=== PATIENT | female | born 1935 | race Caucasian/White ===

== ENCOUNTER 2017-06-22 15:07 | Emergency (ER) | payer MEDICARE, BC ==
--- NOTE | 2017-06-22 16:35 | EDM.PDOC ---
ED HPI GENERAL MEDICAL PROBLEM - General Chief Complaint: Respiratory Problem Stated Complaint: COUGH Time Seen by Provider: 06/22/17 16:25 Source of Information: Reports: Patient History Limitations: Reports: No Limitations - History of Present Illness INITIAL COMMENTS - FREE TEXT/NARRATIVE: Jennie presents today with complaints of cough with yellow mucus production, fever and chills off and on since June 08 with worsening the past 7 days. She denies chest pain, change in bowel or bladder habits. She does difficulty sleeping with cough as well as vomiting due to coughing hard. - Related Data Allergies Allergy/AdvReac Type Severity Reaction Status Date / Time Sulfa (Sulfonamide Allergy Mouth Sores Verified 06/22/17 16:06 Antibiotics) Home Meds: Home Meds Albuterol Sulfate [Proair Hfa] 2 puff IH Q6H PRN 08/21/14 [History] Albuterol/Ipratropium [DuoNeb 3.0-0.5 MG/3 ML] 1 ampule IH Q6H PRN 08/21/14 [ History] Aspirin [Halfprin] 81 mg PO DAILY 08/21/14 [History] Calcium Carbonate [Tums] 500 mg PO ASDIRECTED PRN 08/21/14 [History] Fluticasone/Salmeterol [Advair 250-50 Diskus] 2 puff IH BID PRN 08/21/14 [ History] Furosemide 1 tab PO DAILY 08/21/14 [History] Losartan [Cozaar] 100 mg PO DAILY 08/21/14 [History] Montelukast Sodium [Singulair] 10 mg PO DAILY 08/21/14 [History] Nebivolol [Bystolic] 10 mg PO DAILY 08/21/14 [History] Nitroglycerin 0.4 mg SL ASDIRECTED PRN 08/21/14 [History] atorvaSTATin [Lipitor] 40 mg PO DAILY 08/21/14 [History] Potassium Chloride [Klor-Con M10] 10 meq PO DAILY 01/11/15 [History] Escitalopram [Lexapro] 10 mg PO DAILY 10/26/15 [History] Loratadine [Claritin] 10 mg PO DAILY 10/26/15 [History] Hydrochlorothiazide 6.25 mg PO BEDTIME 06/22/17 [History] Past Medical History HEENT History: Reports: None Cardiovascular History: Reports: Hypertension, [place] Respiratory History: Reports: Asthma Other Respiratory History: emphasema Genitourinary History: Reports: None 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: Musculoskeletal History: Reports: Arthritis Psychiatric History: Reports: Anxiety, Depression - Infectious Disease History Infectious Disease History: Reports: Chicken Pox, Measles, Mumps, Pertussis ( Whooping Cough) - Past Surgical History Head Surgeries/Procedures: Reports: None HEENT Surgical History: Reports: Tonsillectomy Cardiovascular Surgical History: Reports: Carotid Stents Respiratory Surgical History: Reports: None Female Surgical History: Reports: Other (See Below) Other Female Surgeries/Procedures: kidney stents Musculoskeletal Surgical History: Reports: None Dermatological Surgical History: Reports: None Social & Family History - Family History Family Medical History: Noncontributory - Tobacco Use Smoking Status *Q: Never Smoker Second Hand Smoke Exposure: No - Caffeine Use Caffeine Use: Reports: Coffee - Alcohol Use Days Per Week of Alcohol Use: 1 Number of Drinks Per Day: 1 Total Drinks Per Week: 1 - Recreational Drug Use Recreational Drug Use: No ED ROS GENERAL - Review of Systems Review Of Systems: See Below Constitutional: Reports: Fever, Chills. Denies: Weakness, Diaphoresis, Weight Gain HEENT: Reports: Other (sinus congestion). Denies: Ear Discharge, Ear Pain, Throat Pain Respiratory: Reports: Cough, Sputum. Denies: Shortness of Breath, Wheezing, Pleuritic Chest Pain, Hemoptysis Cardiovascular: Reports: Edema, Other (She reports lower leg edema controlled without worsening at this time. ). Denies: Chest Pain, Dyspnea on Exertion, Lightheadedness, Palpitations, PND, Syncope Endocrine: Reports: No Symptoms GI/Abdominal: Reports: Vomiting, Other (Vomiting with heavy coughing. ). Denies : Abdominal Pain, Black Stool, Bloody Stool, Constipation, Diarrhea, Nausea : Reports: No Symptoms Musculoskeletal: Denies: Joint Pain, Joint Swelling, Muscle Pain, Muscle Stiffness Skin: Denies: Bruising, Pruritis, Rash, Erythema, Wound Neurological: Denies: Confusion, Headache, Numbness, Tingling, Weakness Psychiatric: Reports: No Symptoms Hematologic/Lymphatic: Reports: No Symptoms Immunologic: Reports: No Symptoms ED EXAM, GENERAL - Physical Exam Exam: See Below Free Text/Narrative:: Jennie is an alert, oriented and pleasant 81 year old female presenting to the ER with complaints of cough, intermittent fever and chills since June 08 with worsening the past 7 days. Exam Limited By: No Limitations General Appearance: Alert, WD/WN, No Apparent Distress Eye Exam: Bilateral Eye: EOMI, Normal Inspection, PERRL Ears: Normal External Exam, Normal Canal, Hearing Grossly Normal Ear Exam: Bilateral Ear: Auricle Normal, Canal Normal, Other (Bilateral TMs dull darden, no erythema noted. ) Nose: Normal Inspection, Normal Mucosa, No Blood, Nasal Swelling Throat/Mouth: Normal Inspection, Normal Lips, Normal Oropharynx, Normal Voice, No Airway Compromise Head: Atraumatic, Normocephalic Neck: Normal Inspection, Supple, Non-Tender, Full Range of Motion. No: Lymphadenopathy (R), Lymphadenopathy (L) Respiratory/Chest: No Respiratory Distress, No Accessory Muscle Use, Chest Non- Tender, Decreased Breath Sounds, Crackles, Rhonchi, Wheezing, Prolonged Expiration, Other (Noted rhonchi, faint crackles to bilateral bases, expiratory wheezing to bilateral upper lobes. ) Cardiovascular: Normal Peripheral Pulses, Regular Rate, Rhythm, No Murmur, Other (1+ edema bilateral lower legs. ) Peripheral Pulses: 2+: Radial (L), Radial (R) GI/Abdominal: Normal Bowel Sounds, Soft, Non-Tender, No Distention, No Mass Back Exam: Normal Inspection, Full Range of Motion. No: CVA Tenderness (R), CVA Tenderness (L) Extremities: Normal Inspection, Normal Range of Motion, Non-Tender, Normal Capillary Refill, Other (1+ edema of bilateral lower extremities. ) Neurological: Alert, Oriented, CN II-XII Intact, Normal Cognition, Normal Gait, Normal Reflexes, No Motor/Sensory Deficits Psychiatric: Normal Affect, Normal Mood Skin Exam: Warm, Dry, Intact, Normal Color, No Rash. No: Diaphoretic Lymphatic: No Adenopathy Course - Vital Signs Last Recorded V/S: Last Vital Signs Temp 37.0 C 06/22/17 17:47 Pulse 87 06/22/17 17:47 Resp 16 06/22/17 17:47 BP 172/72 H 06/22/17 17:47 Pulse Ox 93 L 06/22/17 17:47 - Orders/Labs/Meds Orders: Active Orders 24 hr Category Date Time Status Chest 2V [CR] Stat Exams 06/22/17 16:35 Taken Labs: Laboratory Tests 06/22/17 06/22/17 Range/Units 16:35 16:35 WBC 12.0 H (4.5-11.0) K/uL RBC 3.78 (3.30-5.50) M/uL Hgb 11.9 L (12.0-15.0) g/dL Hct 36.6 (36.0-48.0) % MCV 97 (80-98) fL MCH 32 H (27-31) pg MCHC 33 (32-36) % Plt Count 326 (150-400) K/uL Neut % (Auto) 67 H (36-66) % Lymph % (Auto) 20 L (24-44) % [place] % (Auto) 10 H (2-6) % Eos % (Auto) 3 (2-4) % Baso % (Auto) 1 (0-1) % Sodium 137 L (140-148) mmol/L Potassium 3.6 (3.6-5.2) mmol/L Chloride 99 L (100-108) mmol/L Carbon Dioxide 32 (21-32) mmol/L Anion Gap 9.6 (5.0-14.0) mmol/L BUN 9 (7-18) mg/dL Creatinine 0.7 (0.6-1.0) mg/dL Est Cr Clr Drug Dosing 43.74 mL/min Estimated GFR (MDRD) > 60 (>60) Glucose 113 H (74-106) mg/dL Calcium 8.8 (8.5-10.1) mg/dL Total Bilirubin 0.3 (0.2-1.0) mg/dL AST 12 L (15-37) U/L ALT 17 (12-78) U/L Alkaline Phosphatase 78 (46-116) U/L NT-Pro-B Natriuret Pep 285 (5-450) pg/mL Total Protein 7.2 (6.4-8.2) g/dL Albumin 3.2 L (3.4-5.0) g/dL Globulin 4.0 H (2.3-3.5) g/dL Albumin/Globulin Ratio 0.8 L (1.2-2.2) Lab work reviewed. Meds: Medications Discontinued Medications Generic Name Dose Route Start Last Admin Trade Name Freq PRN Reason Stop Dose Admin Levofloxacin 750 mg 06/22/17 18:04 Levaquin PO 06/22/17 18:05 ONETIME ONE Levofloxacin 750 mg 06/22/17 18:13 06/22/17 18:20 Levaquin PO 06/22/17 18:14 750 mg ONETIME ONE Administration - Radiology Interpretation Free Text/Narrative:: Chest x-ray wet read, possible bilateral lower infiltrates. Radiologist read pending. Departure - Departure Time of Disposition: 18:07 Disposition: Home, Self-Care 01 Condition: Fair Clinical Impression: Atypical pneumonia - Discharge Information Instructions: Community-Acquired Pneumonia, Adult, [id number] Referrals: Rashad Vidal PA-C [Primary Care Provider] - Forms: ED Department Discharge Additional Instructions: You were treated for atypical pneumonia. You were given levaquin 650mg by mouth in the emergency room with a written script. Take levaquin 750mg by mouth once daily for 6 more days. Follow up with your provider this Friday for a recheck of status. Take cough medicine as needed for cough. Return to the emergency room for worsening of cough, SOB, fever, chills or change in mental status. - My Orders Last 24 Hours: My Active Orders 06/22/17 16:35 Chest 2V [CR] Stat - Assessment/Plan Last 24 Hours: My Active Orders 06/22/17 16:35 Chest 2V [CR] Stat Assessment:: Atypical pneumonia Plan: Patient was treated for atypical pneumonia. She was given levaquin 650mg by mouth in the emergency room with a written script. Take levaquin 750mg by mouth once daily for 6 more days. Follow up with her provider this Friday for a recheck of status. Take cough medicine as needed for cough. Return to the emergency room for worsening of cough, SOB, fever, chills or change in mental status.
[2017-06-22 17:48] VITALS: BP 172/72
[2017-06-22] MEDS ORDERED: Levofloxacin 250 MG Tab PO ONE (18:04)
[2017-06-22] MEDS ORDERED: Levofloxacin 500 MG Tab PO ONE (18:13)
--- NOTE | 2017-06-23 08:49 | CR ---
2 view chest Comparison: October 2015. Intact sternal wires are present. The heart and vascular structures are stable. There are no infiltra tanner or effusions. Impression: 1. No acute findings.
== END 2017-06-22 18:23 | disposition home or self-care (01) ==
LOC: JP.ED 15:07
DX: J18.9 Pneumonia, unspecified organism (principal); I10 Essential (primary) hypertension; J45.909 Unspecified asthma, uncomplicated; Z79.899 Other long term (current) drug therapy; Z79.82 Long term (current) use of aspirin; Z88.2 Allergy status to sulfonamides
CPT/HCPCS: 36415; 71020; 80053; 83880; 85025; 99283; 99284; A9270

== ENCOUNTER 2019-06-20 01:23 | Emergency (ER) | payer MEDICARE, BC ==
[2019-06-20] MEDS ORDERED: Aspirin 81 MG Tab.Chew PO ONE (01:30)
[2019-06-20] MEDS ORDERED: Albuterol/Ipratropium 3.0-0.5 MG/3 ML Neb Soln NEB ONE (01:31)
--- NOTE | 2019-06-20 01:34 | EDM.PDOC ---
ED HPI GENERAL MEDICAL PROBLEM - General Chief Complaint: Chest Pain Stated Complaint: TROUBLE BREATHING Time Seen by Provider: 06/20/19 01:27 Source of Information: Reports: Patient, Family, RN Notes Reviewed History Limitations: Reports: No Limitations - History of Present Illness INITIAL COMMENTS - FREE TEXT/NARRATIVE: 83-year-old female presents emergency department today complaint of chest tightness, she states it started about 10:00 this evening chest feels tight feels short of breath did try a breathing treatment which provided some relief. No nausea and no diaphoresis does have a history of coronary artery disease Chest Pain Score (Numeric/FACES): 8 - Related Data Allergies Allergy/AdvReac Type Severity Reaction Status Date / Time Sulfa (Sulfonamide Allergy Mouth Sores Verified 06/20/19 01:27 Antibiotics) Home Meds: Home Meds Albuterol Sulfate [Proair Hfa] 2 puff IH Q6H PRN 08/21/14 [History] Albuterol/Ipratropium [DuoNeb 3.0-0.5 MG/3 ML] 1 ampule IH Q6H PRN 08/21/14 [ History] Aspirin [Halfprin] 81 mg PO DAILY 08/21/14 [History] Calcium Carbonate [Tums] 500 mg PO ASDIRECTED PRN 08/21/14 [History] Fluticasone/Salmeterol [Advair 250-50 Diskus] 1 puff IH BID 08/21/14 [History] Furosemide 60 mg PO DAILY 08/21/14 [History] Losartan [Cozaar] 100 mg PO DAILY 08/21/14 [History] Montelukast Sodium [Singulair] 10 mg PO DAILY 08/21/14 [History] Nitroglycerin 0.4 mg SL ASDIRECTED PRN 08/21/14 [History] atorvaSTATin [Lipitor] 40 mg PO DAILY 08/21/14 [History] Potassium Chloride [Klor-Con M10] 10 meq PO DAILY 01/11/15 [History] Loratadine [Claritin] 10 mg PO DAILY 10/26/15 [History] hydroCHLOROthiazide [Hydrochlorothiazide] 12.5 mg PO BEDTIME 06/22/17 [History] Carvedilol 6.25 mg PO BID 01/16/18 [History] Fluticasone Propionate [Flonase Allergy Relief] 2 sprays NS DAILY 01/16/18 [ History] amLODIPine Besylate [Amlodipine Besylate] 5 mg PO DAILY 01/16/18 [History] Past Medical History Cardiovascular History: Reports: Bypass, CAD, High Cholesterol, Hypertension, [place] , SOB on Exertion Respiratory History: Reports: Asthma, COPD, SOB Other Respiratory History: emphasema 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: Musculoskeletal History: Reports: Arthritis Psychiatric History: Reports: Anxiety, Depression - Infectious Disease History Infectious Disease History: Reports: Chicken Pox, Measles, Mumps, Pertussis ( Whooping Cough) - Past Surgical History Head Surgeries/Procedures: Reports: None HEENT Surgical History: Reports: Tonsillectomy Cardiovascular Surgical History: Reports: Carotid Stents, Coronary Artery Bypass , Coronary Artery Stent Respiratory Surgical History: Reports: None GI Surgical History: Reports: None Female Surgical History: Reports: Other (See Below) Other Female Surgeries/Procedures: kidney stents Musculoskeletal Surgical History: Reports: None Dermatological Surgical History: Reports: None Social & Family History - Family History Family Medical History: Noncontributory - Tobacco Use Smoking Status *Q: Never Smoker - Caffeine Use Caffeine Use: Reports: Coffee ED ROS GENERAL - Review of Systems Review Of Systems: See Below Constitutional: Reports: No Symptoms HEENT: Reports: No Symptoms Respiratory: Reports: Shortness of Breath, Wheezing. Denies: Cough, Sputum Cardiovascular: Reports: Chest Pain, Dyspnea on Exertion GI/Abdominal: Reports: No Symptoms : Reports: No Symptoms ED EXAM, GENERAL - Physical Exam Exam: See Below Exam Limited By: No Limitations General Appearance: Alert (Sore), WD/WN, No Apparent Distress Neck: Normal Inspection, Supple, Non-Tender, Full Range of Motion Respiratory/Chest: No Respiratory Distress, Lungs Clear, No Accessory Muscle Use , Chest Non-Tender, Decreased Breath Sounds Cardiovascular: Regular Rate, Rhythm, No Murmur GI/Abdominal: Soft, Non-Tender Course - Vital Signs Last Recorded V/S: Last Vital Signs Temp 98.9 F 06/20/19 01:33 Pulse 89 06/20/19 01:40 Resp 17 06/20/19 01:40 BP 185/76 H 06/20/19 01:40 Pulse Ox 96 06/20/19 01:40 - Orders/Labs/Meds Orders: Active Orders 24 hr Category Date Time Status Cardiac Monitoring [RC] .As Directed Care 06/20/19 01:31 Active EKG Documentation Completion [RC] ASDIRECTED Care 06/20/19 01:31 Active RT Aerosol Therapy [RC] ASDIRECTED Care 06/20/19 01:31 Active EKG 12 Lead [EK] Stat Ther 06/20/19 01:31 Ordered Labs: Laboratory Tests 06/20/19 06/20/19 Range/Units 01:40 01:40 WBC 13.6 H (4.5-11.0) K/uL RBC 3.99 (3.30-5.50) M/uL Hgb 13.0 (12.0-15.0) g/dL Hct 39.7 (36.0-48.0) % MCV 100 H (80-98) fL MCH 33 H (27-31) pg MCHC 33 (32-36) % Plt Count 253 (150-400) K/uL Neut % (Auto) 71 H (36-66) % Lymph % (Auto) 17 L (24-44) % [place] % (Auto) 6 (2-6) % Eos % (Auto) 6 H (2-4) % Baso % (Auto) 1 (0-1) % Sodium 139 L (140-148) mmol/L Potassium 3.5 L (3.6-5.2) mmol/L Chloride 100 (100-108) mmol/L Carbon Dioxide 28 (21-32) mmol/L Anion Gap 14.5 H (5.0-14.0) mmol/L BUN 19 H D (7-18) mg/dL Creatinine 0.9 (0.6-1.0) mg/dL Est Cr Clr Drug Dosing 32.83 mL/min Estimated GFR (MDRD) 60 (>60) Glucose 129 H (74-106) mg/dL Calcium 9.1 (8.5-10.1) mg/dL Total Bilirubin 0.3 (0.2-1.0) mg/dL AST 14 L (15-37) U/L ALT 17 (12-78) U/L Alkaline Phosphatase 84 (46-116) U/L Troponin I < 0.017 (0.000-0.056) ng/mL NT-Pro-B Natriuret Pep 244 (5-450) pg/mL Total Protein 7.6 (6.4-8.2) g/dL Albumin 4.2 (3.4-5.0) g/dL Globulin 3.4 (2.3-3.5) g/dL Albumin/Globulin Ratio 1.2 (1.2-2.2) Meds: Medications Discontinued Medications Generic Name Dose Route Start Last Admin Trade Name Chris PRN Reason Stop Dose Admin Albuterol/Ipratropium 3 ml 06/20/19 01:31 06/20/19 01:37 Duoneb 3.0-0.5 Mg/3 Ml NEB 06/20/19 01:32 3 ml ONETIME ONE Administration Aspirin 324 mg 06/20/19 01:30 06/20/19 01:37 Aspirin PO 06/20/19 01:31 324 mg ONETIME ONE Administration Departure - Departure Time of Disposition: 02:22 Disposition: Home, Self-Care 01 Condition: Fair Clinical Impression: COPD exacerbation Instructions: Chronic Obstructive Pulmonary Disease Exacerbation Referrals: PCP,None [Primary Care Provider] - Forms: ED Department Discharge Additional Instructions: Take full course of antibiotics, take full course of prednisone, Please followup with your primary care provider in 3-5 days if not better, please call return to the emergency department with worsening of symptoms. - My Orders Last 24 Hours: My Active Orders 06/20/19 01:31 Cardiac Monitoring [RC] .As Directed EKG Documentation Completion [RC] ASDIRECTED RT Aerosol Therapy [RC] ASDIRECTED EKG 12 Lead [EK] Stat - Assessment/Plan Last 24 Hours: My Active Orders 06/20/19 01:31 Cardiac Monitoring [RC] .As Directed EKG Documentation Completion [RC] ASDIRECTED RT Aerosol Therapy [RC] ASDIRECTED EKG 12 Lead [EK] Stat Plan: Assessment Acuity = acute Site and laterality = COPD exacerbation Etiology = unknown Manifestations = wheezing, dyspnea Location of injury = Home Lab values = WBC elevated 13.6 consistent leukocytosis, CMP unremarkable troponin was negative BNP was negative chest x-ray shows no acute process EKG demonstrates normal sinus rhythm Plan She had good relief with the DuoNeb provided in the ED was able to breathe more relaxed, plan is to do prednisone 20 mg once day 5 days combination with a azithromycin per package directions for 5 days follow-up primary care 3-5 days if not better This note was dictated using [employer] voice recognition software please call with any questions on syntax or grammar.
--- NOTE | 2019-06-20 01:58 | CRLCR ---
INDICATION: Chest pain TECHNIQUE: Chest radiograph 2 views COMPARISON: 06/22/2017 FINDINGS: Mediastinum: The mediastinum is normal in appearance. The heart silhouette is normal in size and morphology. The patient is status post coronary artery bypass surgery. Lung: Both lungs are unremarkable in appearance. No sign of pleural effusion seen. No pneumothorax is identified. Bone and Soft tissue: Unremarkable for age. IMPRESSION: 1. No acute cardiopulmonary disease is seen. Dictated by: Jam Jimenez MD @ 06/20/2019 01:58:19 (Electronically Signed)
[2019-06-20 02:34] VITALS: BP 176/68; PULSE 77
== END 2019-06-20 02:54 | disposition home or self-care (01) ==
LOC: JP.ED 01:23
DX: J44.1 Chronic obstructive pulmonary disease with (acute) exacerbation (principal); I10 Essential (primary) hypertension; I25.2 Old myocardial infarction; E78.00 Pure hypercholesterolemia, unspecified; F41.9 Anxiety disorder, unspecified; F32.9 Major depressive disorder, single episode, unspecified; Z88.2 Allergy status to sulfonamides; Z79.82 Long term (current) use of aspirin; Z79.899 Other long term (current) drug therapy
CPT/HCPCS: 36415; 71046; 80053; 83880; 84484; 85025; 93005; 94640; 99285; A9270; 93010; 99284; J7620-GY

== ENCOUNTER 2020-04-10 23:40 | Observation (INO) | payer MEDICARE, BC ==
[2020-04-10] MEDS ORDERED: Sodium Chloride 0.9% 10 ML Syringe FLUSH PRN (23:46)
[2020-04-10] MEDS ORDERED: methylPREDNISolone Sod Succ 125 MG in Dextrose 5% in Water 100 ML IV ONE ×2 (23:52)
[2020-04-10] MEDS ORDERED: Albuterol/Ipratropium 3.0-0.5 MG/3 ML Neb Soln NEB ONE (23:52)
[2020-04-10] MEDS ORDERED: methylPREDNISolone Sodium Succinate 125 MG/2 ML SDV ONE (23:56)
[2020-04-10] MEDS ORDERED: methylPREDNISolone Sodium Succinate 125 MG/2 ML SDV IVPUSH ONE (23:58)
[2020-04-11] MEDS ORDERED: Albuterol/Ipratropium 3.0-0.5 MG/3 ML Neb Soln NEB ONE (01:16)
[2020-04-11] MEDS ORDERED: Ondansetron 4 MG Tab.DIS PO ONE (01:43)
--- NOTE | 2020-04-11 01:51 | EDM.PDOC ---
ED HPI GENERAL MEDICAL PROBLEM - General Chief Complaint: Respiratory Problem Stated Complaint: SOB Time Seen by Provider: 04/10/20 23:50 Source of Information: Reports: Patient, Family - History of Present Illness Onset Date: 04/08/20 Duration: Getting Worse Improves with: Reports: None Worsens with: Reports: None Associated Symptoms: Reports: Cough, Malaise, Shortness of Breath, Weakness Treatments [employer]: Reports: Home Treatments (nebulizer treatments with duonebs) - Related Data Allergies Allergy/AdvReac Type Severity Reaction Status Date / Time Sulfa (Sulfonamide Allergy Mouth Sores Verified 04/11/20 00:00 Antibiotics) Home Meds: Home Meds Albuterol Sulfate [Proair Hfa] 2 puff IH Q6H PRN 08/21/14 [History] Albuterol/Ipratropium [DuoNeb 3.0-0.5 MG/3 ML] 1 ampule IH Q6H PRN 08/21/14 [History] Aspirin [Halfprin] 81 mg PO DAILY 08/21/14 [History] Calcium Carbonate [Tums] 500 mg PO ASDIRECTED PRN 08/21/14 [History] Fluticasone Propion/Salmeterol [Advair 250-50 Diskus] 1 puff IH BID 08/21/14 [History] Furosemide 60 mg PO DAILY 08/21/14 [History] Losartan [Cozaar] 100 mg PO DAILY 08/21/14 [History] Montelukast Sodium [Singulair] 10 mg PO DAILY 08/21/14 [History] Nitroglycerin 0.4 mg SL ASDIRECTED PRN 08/21/14 [History] atorvaSTATin [Lipitor] 40 mg PO DAILY 08/21/14 [History] Potassium Chloride [Klor-Con M10] 10 meq PO DAILY 01/11/15 [History] hydroCHLOROthiazide [Hydrochlorothiazide] 12.5 mg PO BEDTIME 06/22/17 [History] Fluticasone Propionate [Flonase Allergy Relief] 2 sprays NS DAILY 01/16/18 [History] amLODIPine Besylate [Amlodipine Besylate] 5 mg PO DAILY 01/16/18 [History] carvediloL [Carvedilol] 6.25 mg PO BID 01/16/18 [History] Past Medical History HEENT History: Reports: Hard of Hearing Cardiovascular History: Reports: Bypass, CAD, High Cholesterol, Hypertension, [place], SOB on Exertion Respiratory History: Reports: Asthma, COPD, SOB Other Respiratory History: emphasema Genitourinary History: Reports: None, Chronic Renal Insuffiency, Urinary Incontinence Other Genitourinary History: renal artery stenosis [employer] History: Reports: Musculoskeletal History: Reports: Arthritis, Fracture Other Musculoskeletal History: osteopenia Psychiatric History: Reports: Anxiety, Depression - Infectious Disease History Infectious Disease History: Reports: Chicken Pox, Measles, Pertussis (Whooping Cough) - Past Surgical History Head Surgeries/Procedures: Reports: None HEENT Surgical History: Reports: Tonsillectomy Cardiovascular Surgical History: Reports: Carotid Stents, Coronary Artery Bypass, Coronary Artery Stent Respiratory Surgical History: Reports: None GI Surgical History: Reports: None Female Surgical History: Reports: Other (See Below) Other Female Surgeries/Procedures: kidney stents Musculoskeletal Surgical History: Reports: None Dermatological Surgical History: Reports: None Social & Family History - Family History Family Medical History: Noncontributory - Tobacco Use Smoking Status *Q: Never Smoker - Caffeine Use Caffeine Use: Reports: Coffee ED ROS GENERAL - Review of Systems Review Of Systems: Comprehensive ROS is negative, except as noted in HPI. Constitutional: Reports: Malaise, Weakness, Fatigue HEENT: Reports: No Symptoms Respiratory: Reports: Shortness of Breath, Wheezing, Cough, Sputum Cardiovascular: Reports: Edema Endocrine: Reports: Fatigue GI/Abdominal: Reports: No Symptoms : Reports: No Symptoms Musculoskeletal: Reports: No Symptoms Skin: Reports: No Symptoms Neurological: Reports: No Symptoms Psychiatric: Reports: No Symptoms Hematologic/Lymphatic: Reports: No Symptoms Immunologic: Reports: No Symptoms ED EXAM, GENERAL - Physical Exam Exam: See Below Exam Limited By: No Limitations General Appearance: Anxious, Severe Distress Throat/Mouth: Normal Inspection, Normal Lips, Normal Oropharynx Head: Atraumatic, Normocephalic Neck: Normal Inspection, Supple, Non-Tender, Full Range of Motion Respiratory/Chest: Decreased Breath Sounds, Wheezing (expiratory >> inspiratory), Accessory Muscle Use Cardiovascular: Normal Peripheral Pulses, Regular Rate, Rhythm Peripheral Pulses: 2+: Brachial (L), Brachial (R) GI/Abdominal: Normal Bowel Sounds, Soft, Non-Tender Back Exam: Normal Inspection Extremities: Pedal Edema (3+ bilateral pedal edema) Neurological: Alert, Oriented, Normal Cognition, No Motor/Sensory Deficits Psychiatric: Normal Affect, Anxious Skin Exam: Warm, Dry, Intact Lymphatic: No Adenopathy Course - Vital Signs Last Recorded V/S: Last Vital Signs Temp 36.7 C 04/11/20 00:06 Pulse 74 04/11/20 00:56 Resp 25 H 04/11/20 01:50 BP 168/72 H 04/11/20 00:56 Pulse Ox 90 L 04/11/20 01:50 - Orders/Labs/Meds Orders: Active Orders 24 hr Category Date Time Status RT Aerosol Therapy [RC] ASDIRECTED Care 04/10/20 23:53 Active RT Aerosol Therapy [RC] ASDIRECTED Care 04/11/20 01:16 Active Chest 2V [CR] Stat Exams 04/10/20 23:46 Taken Sodium Chloride 0.9% [Saline Flush] Med 04/10/20 23:46 Active 10 ml FLUSH ASDIRECTED PRN Saline Lock Insert [OM.PC] Routine Oth 04/10/20 23:46 Ordered Medication Orders Sodium Chloride (Saline Flush) 10 ml FLUSH ASDIRECTED PRN PRN Reason: Keep Vein Open Last Admin: 04/11/20 00:01 Dose: 10 ml Documented by: ANIL Labs: Laboratory Tests 04/10/20 04/10/20 04/11/20 Range/Units 23:55 23:55 00:01 WBC 11.2 H (4.5-11.0) K/uL RBC 4.31 (3.30-5.50) M/uL Hgb 13.7 (12.0-15.0) g/dL Hct 42.8 (36.0-48.0) % MCV 99 H (80-98) fL MCH 32 H (27-31) pg MCHC 32 (32-36) % Plt Count 289 (150-400) K/uL Neut % (Auto) 44 (36-66) % Lymph % (Auto) 34 (24-44) % Gonzales % (Auto) 9 H (2-6) % Eos % (Auto) 11 H (2-4) % Baso % (Auto) 1 (0-1) % Sodium 134 L (140-148) mmol/L Potassium 3.5 L (3.6-5.2) mmol/L Chloride 95 L (100-108) mmol/L Carbon Dioxide 31 (21-32) mmol/L Anion Gap 11.5 (5.0-14.0) mmol/L BUN 10 (7-18) mg/dL Creatinine 1.0 (0.6-1.0) mg/dL Est Cr Clr Drug Dosing 29.01 mL/min Estimated GFR (MDRD) 53 L (>60) Glucose 150 H (74-106) mg/dL Lactic Acid 1.5 (0.4-2.0) mmol/L Calcium 8.8 (8.5-10.1) mg/dL Total Bilirubin 0.4 (0.2-1.0) mg/dL AST 16 (15-37) U/L ALT 15 (12-78) U/L Alkaline Phosphatase 71 (46-116) U/L Troponin I < 0.017 (0.000-0.056) ng/mL C-Reactive Protein < 0.05 (0.0-0.3) mg/dL Total Protein 7.9 (6.4-8.2) g/dL Albumin 4.2 (3.4-5.0) g/dL Globulin 3.7 H (2.3-3.5) g/dL Albumin/Globulin Ratio 1.1 L (1.2-2.2) Meds: Medications Generic Name Dose Route Start Last Admin Trade Name Freq PRN Reason Stop Dose Admin Sodium Chloride 10 ml 04/10/20 23:46 04/11/20 00:01 Saline Flush FLUSH 10 ml ASDIRECTED PRN Administration Keep Vein Open Discontinued Medications Generic Name Dose Route Start Last Admin Trade Name Freq PRN Reason Stop Dose Admin Albuterol/Ipratropium 3 ml 04/10/20 23:52 04/11/20 00:00 Duoneb 3.0-0.5 Mg/3 Ml NEB 04/10/20 23:53 3 ml ONETIME ONE Administration Albuterol/Ipratropium 3 ml 04/11/20 01:16 04/11/20 01:20 Duoneb 3.0-0.5 Mg/3 Ml NEB 04/11/20 01:17 3 ml ONETIME ONE Administration Methylprednisolone Sodium 100 mls @ 100 mls/hr 04/10/20 23:52 04/11/20 00:04 Succinate 125 mg/ Dextrose/ IV 04/11/20 00:51 Not Given Water ONETIME ONE Methylprednisolone Sodium Succinate 125 mg 04/10/20 23:58 04/11/20 00:03 Solu-Medrol IVPUSH 04/10/20 23:59 125 mg ONETIME ONE Administration Methylprednisolone Sodium Succinate Confirm 04/10/20 23:56 04/11/20 00:03 Solu-Medrol Administered 04/10/20 23:57 Not Given Dose 125 mg .ROUTE .STK-MED ONE Ondansetron HCl 4 mg 04/11/20 01:43 04/11/20 01:50 Zofran Odt PO 04/11/20 01:44 4 mg ONETIME ONE Administration - Re-Assessments/Exams Free Text/Narrative Re-Assessment/Exam: 04/11/20 01:55 Jennie received several duoneb treatments and solumedrol 125mg IVP with marked improvement in her symptoms. However, when she was getting dressed to be discharged, she again became acutely short of breath raising concerns that she might not be able to go home tonight. 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 We reassessed the patient by walking with her while monitoring her oxymetry. Unfortunately her oxymetry dropped below 90% with minimal ambulation and the patient became quite fatigued. 04/11/20 02:46 With this I believe we should admit her for COPD exacerbation. I will discuss the case with Dr. Elizabeth to arrange the admission. Departure - Departure Time of Disposition: 02:55 Disposition: Admitted As Inpatient 64 Condition: Fair Clinical Impression: COPD with acute exacerbation, Acute exacerbation of chronic bronchitis - Discharge Information *PRESCRIPTION DRUG MONITORING PROGRAM REVIEWED*: Not Applicable Instructions: Chronic Obstructive Pulmonary Disease, [id number], Acute Bronchitis, Adult Referrals: PCP,None [Primary Care Provider] - Forms: ED Department Discharge Additional Instructions: I believe you have acute on chronic bronchitis given the elevation of her leukocyte count and a productive cough. We will start Azithromycin to treat this. Continue using your duoneb as needed. Return to the ED if you have any worsening of your breathing. Sepsis Event Note (ED) - Evaluation Sepsis Screening Result: No Definite Risk - Focused Exam Vital Signs: Vital Signs Temp Pulse Resp BP Pulse Ox 04/11/20 01:50 25 H 90 L 04/11/20 00:56 74 168/72 H 92 L 04/11/20 00:14 84 25 H 184/78 H 97 04/11/20 00:06 36.7 C 90 28 H 212/78 H 80 L 04/10/20 23:50 36.7 C 90 28 H 212/78 H 80 L - Problem List Review Problem List Initiated/Reviewed/Updated: Yes - My Orders Last 24 Hours: My Active Orders 04/10/20 23:46 Chest 2V [CR] Stat Sodium Chloride 0.9% [Saline Flush] 10 ml FLUSH ASDIRECTED PRN Saline Lock Insert [OM.PC] Routine 04/10/20 23:53 RT Aerosol Therapy [RC] ASDIRECTED 04/11/20 01:16 RT Aerosol Therapy [RC] ASDIRECTED - Assessment/Plan Last 24 Hours: My Active Orders 04/10/20 23:46 Chest 2V [CR] Stat Sodium Chloride 0.9% [Saline Flush] 10 ml FLUSH ASDIRECTED PRN Saline Lock Insert [OM.PC] Routine 04/10/20 23:53 RT Aerosol Therapy [RC] ASDIRECTED 04/11/20 01:16 RT Aerosol Therapy [RC] ASDIRECTED
[2020-04-11] MEDS ORDERED: Ondansetron 4 MG Tab.DIS PO PRN (03:44)
[2020-04-11] MEDS ORDERED: Sodium Chloride 0.9% 10 ML Syringe FLUSH PRN (03:44)
[2020-04-11] MEDS ORDERED: Albuterol/Ipratropium 3.0-0.5 MG/3 ML Neb Soln NEB PRN (03:44)
[2020-04-11] MEDS ORDERED: methylPREDNISolone Sodium Succinate 125 MG/2 ML SDV IVPUSH SCH ×2 (04:00→08:00)
[2020-04-11] MEDS ORDERED: Nitroglycerin 0.4 MG Tab.SL SL PRN (04:01)
[2020-04-11] MEDS ORDERED: Calcium Carbonate 500 MG Tab.Chew PO PRN (04:01)
[2020-04-11] MEDS ORDERED: Potassium Chloride 20 MEQ Tab.ER PO ONE (04:03)
--- NOTE | 2020-04-11 05:21 | HP ---
CHIEF COMPLAINT: Shortness of breath. HISTORY OF PRESENT ILLNESS: For the last couple days, she has had increasing shortness of breath with an occasional nonproductive cough. No fever. No known exposure to COVID. She lives in assisted living. They tried to get her into the clinic, but were not able to get in for a couple days and family brought her into the emergency room for further evaluation with available emergency room physician. Initially, her O2 sats were down to the 80% range, was given a DuoNeb and oxygen and Solu-Medrol, and her oxygenation did improve. They were able to take her off oxygen and her sats did improve, but when they did get her up, she did drop down to the 80% range again. I was asked to meet the patient for further evaluation and treatment. The patient states she has had wheezing, tightness in her chest, but no chest pain. She does have chronic swelling in her legs, but right now it is actually doing better than it usually is. She does wear elastic stockings on a regular basis, but currently has not had them on. PAST MEDICAL HISTORY: 1. COPD. She has never been a smoker. 2. Coronary artery disease, two-vessel bypass surgery in the past. It looked like she probably had a heart attack prior to this. 3. Hypertension. 4. Arthritis. 5. Anxiety and depression. 6. Tonsillectomy. 7. AAA repair. 8. Carotid stents placed in the past. 9. Kidney stents placed in the past. CURRENT MEDICATIONS: 1. Albuterol inhaler p.r.n. 2. DuoNeb p.r.n. 3. Amlodipine 5 mg daily. 4. Aspirin 81 mg daily. 5. Atorvastatin 40 mg daily. 6. Calcium 500 mg p.r.n. 7. Carvedilol 6.25 mg b.i.d. 8. Advair inhaler 250/50 b.i.d. 9. Flonase nasal spray two sprays in each nostril daily. 10.Furosemide 60 mg daily. 11.Hydrochlorothiazide 12.5 mg at bedtime. 12.Losartan 100 mg daily. 13.Singulair 10 mg daily. 14.Nitroglycerin, which she has not taken. 15.Potassium chloride 10 mEq daily. ALLERGIES: SULFA. SOCIAL HISTORY: Has never smoked. 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 FAMILY HISTORY: Unremarkable. REVIEW OF SYSTEMS: Denies headaches, vision changes, upper respiratory symptoms. She does have a cough with shortness of breath and wheezing. No chest pain. No abdominal pain. She did have a little bit of nausea when she came in, improved with Zofran. Denies any diarrhea or constipation. No urinary problems. She does have chronic swelling in her legs and she does have joints that bother her at times from her arthritis. Denies any neurologic complaints. OBJECTIVE: VITAL SIGNS: Temp 36.7. Initially blood pressure was 212/78, now is 168/72, respirations 28, now 25, O2 saturation 80% initially on 2 L, now is on 90-92% on no oxygen. GENERAL APPEARANCE: The patient is alert and oriented x3. The patient is otherwise in no apparent distress, but does get quite dyspneic when they get her up to walk. HEENT: Ears are clear. Pharynx is clear. Dentures worn. NECK: Supple. No adenopathy, thyromegaly, JVD, carotid bruits. LUNGS: Have slight wheezes now. It sounds like it was much more pronounced when she arrived. HEART: Regular without murmurs. ABDOMEN: Soft, nontender. No mass, organomegaly palpated. EXTREMITIES: She does have pitting edema to the midtibia bilaterally, but right now she states her swelling is actually pretty good. SKIN: Negative. NEURO: Cranial nerves II through XII grossly intact. Alert and oriented. LABORATORY DATA: White count 11.2, hemoglobin 13.7, platelets 289,000 with 44% neutrophils, 34% lymphocytes, 9% monocytes. Sodium 134, potassium 3.5, chloride 95, BUN was 10, creatinine 1.0, glucose 150. Liver functions were normal. C-reactive protein less than 0.05. Troponins less than 0.017. Chest x-ray, hyperinflated, but no acute infiltrate, but await Radiology interpretation. ASSESSMENT: 1. Exacerbation of chronic obstructive pulmonary disease with possible bronchitis. The patient already received 125 mg of Solu-Medrol in the emergency room, which we will continue every 8 hours, DuoNeb q.i.d., and oxygen as needed, right now she does not require. We will also start her on Zithromax for possible bronchitis as a component of the exacerbation. We will admit her under observation, anticipate less than two midnight stays. Transfer care to the hospitalist service in the morning. 2. Coronary artery disease, previous two-vessel bypass surgery in the past. 3. Essential hypertension, which is elevated, and we will continue to monitor and adjust medication if needed. Hiram Elizabeth MD /[id number]
[2020-04-11] MEDS ORDERED: Fluticasone-Salmeterol 113-14 MCG Powder Inhalant INH SCH ×2 (07:30→09:00)
[2020-04-11] MEDS: Acetaminophen 325 MG Tab PO PRN ×2 (08:08→20:14)
[2020-04-11] MEDS ORDERED: Fluticasone Propionate Nasal Spray 16 GM Bottle NASBOTH SCH (09:00)
[2020-04-11] MEDS ORDERED: amLODIPine 5 MG Tab PO SCH (09:00)
[2020-04-11] MEDS ORDERED: atorvaSTATin 20 MG Tab PO SCH (09:00)
[2020-04-11] MEDS ORDERED: Furosemide 40 MG Tab PO SCH (09:00)
[2020-04-11] MEDS ORDERED: Losartan 50 MG Tab PO SCH (09:00)
[2020-04-11] MEDS: Fluticasone Propionate Nasal Spray 16 GM Bottle NASBOTH SCH (09:41)
[2020-04-11] MEDS: CARVEDILOL 6.25 MG PO SCH ×2 (09:43→20:15)
[2020-04-11] MEDS: LOSARTAN 100MG TAB (PTOM) PO SCH (09:44)
[2020-04-11] MEDS: ATORVASTATIN 40MG TAB (PTOM) PO SCH (09:45)
[2020-04-11] MEDS: Furosemide 20 MG Tab PO SCH (09:45)
[2020-04-11] MEDS: Hydrochlorothiazide 25 MG Tab (PTOM) PO SCH (09:45)
[2020-04-11] MEDS: Potassium Chloride 10 MEQ Cap.ER (PTOM) PO SCH (09:45)
[2020-04-11] MEDS: Montelukast 10 MG Tab (PTOM) PO SCH (09:46)
[2020-04-11] MEDS: ADVAIR INH SCH ×2 (09:47→20:16)
[2020-04-11] MEDS: Aspirin 81 MG Tab.EC PO SCH (10:02)
[2020-04-11] MEDS ORDERED: Albuterol 0.083% 2.5 MG/3 ML Neb Soln NEB PRN (10:03)
[2020-04-11] MEDS: Azithromycin 250 MG Tab PO SCH (10:03)
[2020-04-11] MEDS ORDERED: Non-Formulary Medication 1 Each (Umeclidinium Bromide [Incruse Ellipta*] 62.5 MCG) IH SCH (10:15)
[2020-04-11] MEDS: INCRUSE ELLIPTA 62.5MCG INHALER (PTOM) INH SCH (11:05)
[2020-04-11] MEDS: Albuterol/Ipratropium 3.0-0.5 MG/3 ML Neb Soln NEB SCH ×2 (14:01→20:17)
[2020-04-11] MEDS: predniSONE 20 MG Tab PO SCH (16:15)
[2020-04-11] MEDS ORDERED: amLODIPine 5 MG Tab (PTOM) PO SCH (21:00)
[2020-04-11] MEDS ORDERED: Hydrochlorothiazide 12.5 MG Cap PO SCH (21:00)
[2020-04-12] MEDS: Albuterol/Ipratropium 3.0-0.5 MG/3 ML Neb Soln NEB SCH ×2 (07:18→12:51)
[2020-04-12] MEDS: INCRUSE ELLIPTA 62.5MCG INHALER (PTOM) INH SCH (07:18)
[2020-04-12] MEDS: ADVAIR INH SCH (07:19)
[2020-04-12 07:56] VITALS: BP 123/45; PULSE 73
[2020-04-12] MEDS: predniSONE 20 MG Tab PO SCH (07:56)
[2020-04-12] MEDS: Aspirin 81 MG Tab.EC PO SCH (08:51)
[2020-04-12] MEDS: Azithromycin 250 MG Tab PO SCH (08:51)
[2020-04-12] MEDS: Fluticasone Propionate Nasal Spray 16 GM Bottle NASBOTH SCH (08:52)
[2020-04-12] MEDS: Hydrochlorothiazide 25 MG Tab (PTOM) PO SCH (08:53)
[2020-04-12] MEDS: CARVEDILOL 6.25 MG PO SCH (08:53)
[2020-04-12] MEDS: LOSARTAN 100MG TAB (PTOM) PO SCH (08:55)
[2020-04-12] MEDS: ATORVASTATIN 40MG TAB (PTOM) PO SCH (08:55)
[2020-04-12] MEDS: Potassium Chloride 10 MEQ Cap.ER (PTOM) PO SCH (08:56)
[2020-04-12] MEDS: Furosemide 20 MG Tab PO SCH (08:57)
[2020-04-12] MEDS: Montelukast 10 MG Tab (PTOM) PO SCH (08:58)
[2020-04-12] MEDS ORDERED: Potassium Chloride 20 MEQ Tab.ER PO ONE (09:00)
--- NOTE | 2020-04-12 12:19 | PCM.DCSUM1 ---
Discharge Summary - Hospital Course Brief History: 84-year-old female with history of mild, stable COPD and history of coronary artery disease who presented with increasing cough and shortness of breath. She was admitted with hypoxia in the setting of acute bronchitis and acute exacerbation of COPD. Diagnosis: Stroke: No - Discharge Data Discharge Date: 04/12/20 Discharge Disposition: Home, Self-Care 01 Condition: Good - Referral to Home Health Primary Care Physician: PCP None - Discharge Diagnosis/Problem(s) (1) Acute bronchitis SNOMED Code(s): 05976482 ICD Code: J20.9 - ACUTE BRONCHITIS, UNSPECIFIED Status: Acute Qualifiers: Bronchitis organism: unspecified organism Qualified Code(s): J20.9 - Acute bronchitis, unspecified (2) COPD exacerbation SNOMED Code(s): 246370398 ICD Code: J44.1 - CHRONIC OBSTRUCTIVE PULMONARY DISEASE W (ACUTE) EXACERBATION Status: Acute - Patient Summary/Data Hospital Course: Theresa presented to the emergency room with acute onset of cough and shortness of breath. Work-up in the emergency room was suggestive of bronchitis with an exacerbation of COPD as well as hypoxic respiratory failure. She was started on azithromycin as well as IV steroids and admitted to the hospital for further management. Throughout the day following admission she did continue to require supplemental oxygen intermittently and especially with activity. Other vital signs were stable. Wheezing did improve throughout the day. There were no acute events overnight after admission. By the morning of discharge she is feeling quite well. There is no residual wheezing. Her oxygenation has been good without supplemental oxygen. She has been up and walking around and was able to maintain oxygen saturations. No fevers. Tolerating medications well. She feels well enough to go home at this time and will be discharged home today. She will be on antibiotics for 3 more days and steroids for 3 more days. - Patient Instructions Diet: Regular Diet as Tolerated Activity: As Tolerated Showering/Bathing: May Shower Notify Provider of: Fever, Increased Pain Other/Special Instructions: 1. You were in the hospital for management of acute bronchitis with an exacerbation of COPD. Your condition is improving with antibiotic therapy as well as steroids. I do recommend ongoing antibiotic therapy after hospital discharge. Please take a azithromycin 500 mg once daily for 3 days. Your first dose outside of the hospital will be due tomorrow morning. I also recommend that we continue the prednisone for anti-inflammatory benefit. Please take 20 mg twice daily with meals for 4 more doses. Your first dose outside of the hospital will be due tonight at suppertime. You may continue to use your albuterol inhaler and nebulizers as previously prescribed. 2. Your potassium level was low during the hospital stay. I recommend that we increase your potassium supplement to 20 mEq (2 tablets) twice daily with breakfast and with supper. A new prescription has been sent. 3. Continue your other home medications as previously prescribed. 4. Follow up with your primary care as scheduled. - Discharge Plan *PRESCRIPTION DRUG MONITORING PROGRAM REVIEWED*: Not Applicable *COPY OF PRESCRIPTION DRUG MONITORING REPORT IN PATIENT DEXTER: Not Applicable Prescriptions/Med Rec: Azithromycin 500 mg PO DAILY #3 tablet Potassium Chloride [Klor-Con M10] 20 meq PO BIDAC #120 predniSONE 20 mg PO BIDAC #4 tablet Home Medications: Home Meds Albuterol Sulfate [Proair Hfa] 2 puff IH Q6H PRN 08/21/14 [History] Albuterol/Ipratropium [DuoNeb 3.0-0.5 MG/3 ML] 1 ampule IH Q6H PRN 08/21/14 [H istory] Aspirin [Halfprin] 81 mg PO DAILY 08/21/14 [History] Calcium Carbonate [Tums] 500 mg PO ASDIRECTED PRN 08/21/14 [History] Fluticasone Propion/Salmeterol [Advair 250-50 Diskus] 1 puff IH BID 08/21/14 [History] Furosemide 60 mg PO DAILY 08/21/14 [History] Losartan [Cozaar] 100 mg PO DAILY 08/21/14 [History] Montelukast Sodium [Singulair] 10 mg PO DAILY 08/21/14 [History] Nitroglycerin 0.4 mg SL ASDIRECTED PRN 08/21/14 [History] atorvaSTATin [Lipitor] 40 mg PO DAILY 08/21/14 [History] hydroCHLOROthiazide [Hydrochlorothiazide] 12.5 mg PO BEDTIME 06/22/17 [History] Fluticasone Propionate [Flonase Allergy Relief] 2 sprays NS DAILY 01/16/18 [History] amLODIPine Besylate [Amlodipine Besylate] 5 mg PO DAILY 01/16/18 [History] carvediloL [Carvedilol] 6.25 mg PO BID 01/16/18 [History] Umeclidinium [place] [Incruse Ellipta*] 62.5 mcg IH DAILY 04/11/20 [History] Azithromycin 500 mg PO DAILY #3 tablet 04/12/20 [Rx] Potassium Chloride [Klor-Con M10] 20 meq PO BIDAC #120 04/12/20 [Rx] predniSONE 20 mg PO BIDAC #4 tablet 04/12/20 [Rx] Oxygen Therapy Mode: Room Air Patient Handouts: Chronic Obstructive Pulmonary Disease, [id number], Acute Bronchitis, Adult Referrals: Nabeel Dubon NP [Nurse Practitioner] - 04/18/20 11:00 am (Please arrive 15 minutes early to register for your appointment.) - Discharge Summary/Plan Comment DC Time >30 min.: No - Patient Data Vitals - Most Recent: Last Vital Signs Temp 37.2 C 04/12/20 07:55 Pulse 73 04/12/20 08:53 Resp 16 04/12/20 07:55 BP 123/45 L 04/12/20 08:53 Pulse Ox 94 L 04/12/20 07:55 Weight - Most Recent: 65.771 kg I&O - Last 24 hours: Intake & Output 04/11/20 04/12/20 04/12/20 22:59 06:59 14:59 Intake Total 300 Output Total 500 600 Balance -200 -600 Lab Results - Last 24 hrs: Laboratory Results - last 24 hr 04/12/20 04/12/20 Range/Units 06:18 06:18 WBC 12.7 H (4.5-11.0) K/uL RBC 4.14 (3.30-5.50) M/uL Hgb 13.3 (12.0-15.0) g/dL Hct 39.9 (36.0-48.0) % MCV 96 (80-98) fL MCH 32 H (27-31) pg MCHC 33 (32-36) % Plt Count 247 (150-400) K/uL Sodium 131 L (140-148) mmol/L Potassium 3.3 L (3.6-5.2) mmol/L Chloride 94 L (100-108) mmol/L Carbon Dioxide 29 (21-32) mmol/L Anion Gap 11.3 (5.0-14.0) mmol/L BUN 17 D (7-18) mg/dL Creatinine 0.9 (0.6-1.0) mg/dL Est Cr Clr Drug Dosing 32.23 mL/min Estimated GFR (MDRD) 59 L (>60) Glucose 132 H (74-106) mg/dL Calcium 9.0 (8.5-10.1) mg/dL Med Orders - Current: Current Medications Acetaminophen (Tylenol) 650 mg PO Q4H PRN PRN Reason: Pain (Mild 1-3)/fever Last Admin: 04/11/20 20:14 Dose: 650 mg Documented by: Albuterol (Proventil Neb Soln) 2.5 mg NEB Q4H PRN PRN Reason: shortness of breath/wheezing Last Admin: 04/11/20 10:20 Dose: 2.5 mg Documented by: Albuterol/Ipratropium (Duoneb 3.0-0.5 Mg/3 Ml) 3 ml NEB TIDRT [facility] Last Admin: 04/12/20 07:18 Dose: 3 ml Documented by: Amlodipine Besylate (Norvasc) 5 mg PO BEDTIME [facility] Last Admin: 04/11/20 20:15 Dose: 5 mg Documented by: Aspirin (Halfprin) 81 mg PO DAILY [facility] Last Admin: 04/12/20 08:51 Dose: 81 mg Documented by: Azithromycin (Zithromax) 500 mg PO DAILY [facility] Last Admin: 04/12/20 08:51 Dose: 500 mg Documented by: Calcium Carbonate/Glycine (Tums) 500 mg PO Q2H PRN PRN Reason: Heartburn Carvedilol (Coreg) 6.25 mg PO BID [facility] Last Admin: 04/12/20 08:53 Dose: 6.25 mg Documented by: Fluticasone Propionate (Flonase) 0 gm NASBOTH DAILY [facility] Last Admin: 04/12/20 08:52 Dose: Not Given Documented by: Furosemide (Lasix) 60 mg PO DAILY [facility] Last Admin: 04/12/20 08:57 Dose: 60 mg Documented by: Hydrochlorothiazide (Hydrochlorothiazide) 12.5 mg PO DAILY [facility] Last Admin: 04/12/20 08:53 Dose: 12.5 mg Documented by: Montelukast Sodium (Singulair) 10 mg PO DAILY [facility] Last Admin: 08/12/20 08:58 Dose: 10 mg Documented by: Nitroglycerin (Nitrostat) 0.4 mg SL ASDIRECTED PRN PRN Reason: Chest Pain Ondansetron HCl (Zofran Odt) 4 mg PO Q6H PRN PRN Reason: Nausea able to take PO Atorvastatin 40mg (Tab (Ptom)) 0 each PO DAILY [facility] Last Admin: 04/12/20 08:55 Dose: 1 each Documented by: Losartan 100mg Tab ( (Ptom)) 0 each PO DAILY [facility] Last Admin: 04/12/20 08:55 Dose: 1 each Documented by: Advair Diskus 250/50 ((Ptom)) 0 each INH BIDRT [facility] Last Admin: 04/12/20 07:19 Dose: 1 each Documented by: Incvinhse Ellipta 62. (5mcg Inhaler (Ptom)) 0 each INH DAILYRT [facility] Last Admin: 04/12/20 07:18 Dose: 1 each Documented by: Potassium Chloride (Potassium Chloride) 10 meq PO DAILY [facility] Last Admin: 04/12/20 08:56 Dose: 10 meq Documented by: Prednisone (Prednisone) 20 mg PO BIDAC [facility] Last Admin: 04/12/20 07:56 Dose: 20 mg Documented by: Sodium Chloride (Saline Flush) 10 ml FLUSH ASDIRECTED PRN PRN Reason: Keep Vein Open Discontinued Medications Albuterol/Ipratropium (Duoneb 3.0-0.5 Mg/3 Ml) 3 ml NEB ONETIME ONE Stop: 04/10/20 23:53 Last Admin: 04/11/20 00:00 Dose: 3 ml Documented by: Albuterol/Ipratropium (Duoneb 3.0-0.5 Mg/3 Ml) 3 ml NEB ONETIME ONE Stop: 04/11/20 01:17 Last Admin: 04/11/20 01:20 Dose: 3 ml Documented by: Albuterol/Ipratropium (Duoneb 3.0-0.5 Mg/3 Ml) 3 ml NEB QID PRN PRN Reason: Shortness Of Breath/wheezing Hydrochlorothiazide (Hydrochlorothiazide) 12.5 mg PO BEDTIME [facility] Methylprednisolone Sodium Succinate 125 mg/ Dextrose/Water 100 mls @ 100 mls/hr IV ONETIME ONE Stop: 04/11/20 00:51 Last Admin: 04/11/20 00:04 Dose: Not Given Documented by: Methylprednisolone Sodium Succinate (Solu-Medrol) 125 mg IVPUSH ONETIME ONE Stop: 04/10/20 23:59 Last Admin: 04/11/20 00:03 Dose: 125 mg Documented by: Methylprednisolone Sodium Succinate (Solu-Medrol) Confirm Administered Dose 125 mg .ROUTE .STK-MED ONE Stop: 04/10/20 23:57 Last Admin: 04/11/20 00:03 Dose: Not Given Documented by: Methylprednisolone Sodium Succinate (Solu-Medrol) 125 mg IVPUSH Q8H [facility] Last Admin: 04/11/20 08:00 Dose: 125 mg Documented by: Ondansetron HCl (Zofran Odt) 4 mg PO ONETIME ONE Stop: 04/11/20 01:44 Last Admin: 04/11/20 01:50 Dose: 4 mg Documented by: Potassium Chloride (Klor-Con M20) 20 meq PO ONETIME ONE Stop: 04/11/20 04:04 Last Admin: 04/11/20 04:46 Dose: 20 meq Documented by: Potassium Chloride (Klor-Con M20) 40 meq PO ONETIME ONE Stop: 04/12/20 09:01 Last Admin: 04/12/20 08:52 Dose: 40 meq Documented by: Sodium Chloride (Saline Flush) 10 ml FLUSH ASDIRECTED PRN PRN Reason: Keep Vein Open Last Admin: 04/11/20 00:01 Dose: 10 ml Documented by:
--- NOTE | 2020-04-13 09:00 | CR ---
CHEST: 2 view CLINICAL HISTORY:Dyspnea COMPARISON:June 2019 The heart size, pulmonary vascularity and hilar structures are normal. No infiltrate effusion or pneumothorax is seen. There are atherosclerotic changes in the aorta.. There has been previous sternotomy. There is a stable nodule in the left lower lobe likely a granuloma IMPRESSION: No acute cardiopulmonary process .
== END 2020-04-12 14:34 | disposition home or self-care (01) ==
LOC: JP.ED 23:40 → JP.MS 04-11 04:04
PROVIDERS: ADMIT Family Medicine; ATTEND Internal Medicine
DX: J44.0 Chronic obstructive pulmonary disease with (acute) lower respiratory infection (principal); J20.9 Acute bronchitis, unspecified; J44.1 Chronic obstructive pulmonary disease with (acute) exacerbation; E78.00 Pure hypercholesterolemia, unspecified; F41.9 Anxiety disorder, unspecified; F32.9 Major depressive disorder, single episode, unspecified; I12.9 Hypertensive chronic kidney disease with stage 1 through stage 4 chronic kidney disease, or unspecified chronic kidney disease; N18.9 Chronic kidney disease, unspecified; I25.10 Atherosclerotic heart disease of native coronary artery without angina pectoris; Z95.1 Presence of aortocoronary bypass graft; Z88.2 Allergy status to sulfonamides; Z79.82 Long term (current) use of aspirin; Z79.899 Other long term (current) drug therapy; Z79.51 Long term (current) use of inhaled steroids
CPT/HCPCS: 36415; 71046; 80048; 80053; 83605; 84484; 85025; 85027; 86140; 94640; 96374; 96376; 99217; 99285; A9270; G0378; J2930; J7512; J7620-GY

== ENCOUNTER 2020-04-21 19:47 | Emergency (ER) | payer MEDICARE, BC ==
[2020-04-21 20:45] VITALS: BP 150/80; PULSE 84
--- NOTE | 2020-04-21 21:24 | EDM.PDOC ---
ED HPI GENERAL MEDICAL PROBLEM - General Chief Complaint: Genitourinary Problem Stated Complaint: HOT FLASHS Time Seen by Provider: 04/21/20 20:45 Source of Information: Reports: Patient, Family History Limitations: Reports: No Limitations - History of Present Illness INITIAL COMMENTS - FREE TEXT/NARRATIVE: 84-year-old female with ongoing intermittent urinary tract infection symptoms such as dysuria and frequency, who has been on 2 separate antibiotics over the course of the last 4 days but not improving. She feels hot flashes going up her back that last 1 to 2 hours, intermittent chills and just does not feel well. - Related Data Allergies Allergy/AdvReac Type Severity Reaction Status Date / Time Sulfa (Sulfonamide Allergy Mouth Sores Verified 04/11/20 00:00 Antibiotics) Home Meds: Home Meds Albuterol Sulfate [Proair Hfa] 2 puff IH Q6H PRN 08/21/14 [History] Albuterol/Ipratropium [DuoNeb 3.0-0.5 MG/3 ML] 1 ampule IH Q6H PRN 08/21/14 [History] Aspirin [Halfprin] 81 mg PO DAILY 08/21/14 [History] Calcium Carbonate [Tums] 500 mg PO ASDIRECTED PRN 08/21/14 [History] Fluticasone Propion/Salmeterol [Advair 250-50 Diskus] 1 puff IH BID 08/21/14 [History] Furosemide 60 mg PO DAILY 08/21/14 [History] Losartan [Cozaar] 100 mg PO DAILY 08/21/14 [History] Montelukast Sodium [Singulair] 10 mg PO DAILY 08/21/14 [History] Nitroglycerin 0.4 mg SL ASDIRECTED PRN 08/21/14 [History] atorvaSTATin [Lipitor] 40 mg PO DAILY 08/21/14 [History] hydroCHLOROthiazide [Hydrochlorothiazide] 12.5 mg PO BEDTIME 06/22/17 [History] Fluticasone Propionate [Flonase Allergy Relief] 2 sprays NS DAILY 01/16/18 [History] amLODIPine Besylate [Amlodipine Besylate] 5 mg PO DAILY 01/16/18 [History] carvediloL [Carvedilol] 6.25 mg PO BID 01/16/18 [History] Umeclidinium [place] [Incruse Ellipta*] 62.5 mcg IH DAILY 04/11/20 [History] Potassium Chloride [Klor-Con M10] 20 meq PO BIDAC #120 04/12/20 [Rx] predniSONE 20 mg PO BIDAC #4 tablet 04/12/20 [Rx] Escitalopram [Lexapro] 10 mg PO DAILY 04/21/20 [History] Nitrofurantoin Monohyd/M-Cryst [Macrobid 100 mg Capsule] 100 mg PO BID 04/21/20 [History] Past Medical History HEENT History: Reports: Hard of Hearing Cardiovascular History: Reports: Bypass, CAD, High Cholesterol, Hypertension, [place], SOB on Exertion Respiratory History: Reports: Asthma, COPD, SOB Other Respiratory History: emphasema Genitourinary History: Reports: None, Chronic Renal Insuffiency, Urinary Incontinence Other Genitourinary History: renal artery stenosis 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: Musculoskeletal History: Reports: Arthritis, Fracture Other Musculoskeletal History: osteopenia Psychiatric History: Reports: Anxiety, Depression - Infectious Disease History Infectious Disease History: Reports: Chicken Pox, Measles, Pertussis (Whooping Cough) - Past Surgical History Head Surgeries/Procedures: Reports: None HEENT Surgical History: Reports: Tonsillectomy Cardiovascular Surgical History: Reports: Carotid Stents, Coronary Artery Bypass, Coronary Artery Stent Respiratory Surgical History: Reports: None GI Surgical History: Reports: None Female Surgical History: Reports: Other (See Below) Other Female Surgeries/Procedures: kidney stents Musculoskeletal Surgical History: Reports: None Dermatological Surgical History: Reports: None Social & Family History - Family History Family Medical History: Noncontributory - Tobacco Use Smoking Status *Q: Never Smoker - Caffeine Use Caffeine Use: Reports: Coffee - Recreational Drug Use Recreational Drug Use: No ED ROS GENERAL - Review of Systems Review Of Systems: See Below Constitutional: Denies: Fever, Chills HEENT: Denies: Throat Pain Respiratory: Reports: Shortness of Breath, Other (Patient is experiencing some intermittent brief shortness of breath and chest pressure) Cardiovascular: Denies: Palpitations GI/Abdominal: Reports: Decreased Appetite. Denies: Abdominal Pain, Nausea, Vomiting Skin: Reports: Diaphoresis Neurological: Reports: Weakness ED EXAM, GENERAL - Physical Exam Exam: See Below Exam Limited By: No Limitations General Appearance: Alert, No Apparent Distress Head: Atraumatic Neck: Supple, Non-Tender Respiratory/Chest: No Respiratory Distress, Lungs Clear Cardiovascular: Regular Rate, Rhythm GI/Abdominal: Soft, Non-Tender Extremities: Other (Trace of symmetric ankle edema) Neurological: Alert, Oriented Psychiatric: Anxious Course - Vital Signs Last Recorded V/S: Last Vital Signs Temp 96.7 F L 04/21/20 20:34 Pulse 84 04/21/20 20:34 Resp 16 04/21/20 20:34 BP 150/80 H 04/21/20 20:34 Pulse Ox 94 L 04/21/20 20:34 - Orders/Labs/Meds Labs: Laboratory Tests 04/21/20 Range/Units 20:41 Urine Color Yellow (YELLOW) Urine Appearance Clear (CLEAR) Urine pH 5.5 (5.0-8.0) Ur Specific [place] 1.025 (1.008-1.030) Urine Protein Negative (NEGATIVE) mg/dL Urine Glucose (UA) Negative (NEGATIVE) mg/dL Urine Ketones Negative (NEGATIVE) mg/dL Urine Occult Blood Negative (NEGATIVE) Urine Nitrite Negative (NEGATIVE) Urine Bilirubin Negative (NEGATIVE) Urine Urobilinogen 0.2 (0.2-1.0) EU/dL Ur Leukocyte Esterase Negative (NEGATIVE) Urine RBC 0-5 (0-5) Urine WBC 0-5 (0-5) Ur Epithelial Cells Not seen Amorphous Sediment Rare Urine Bacteria Not seen Urine Mucus Not seen - Re-Assessments/Exams Free Text/Narrative Re-Assessment/Exam: 04/21/20 21:39 A quick cath UA was obtained which is completely normal. Encouraged the patient to continue her regular medications including the recently prescribed SSRI, but there is no reason to take more antibiotic which could be causing her some side effects. She will recheck next week if not improving satisfactorily or return sooner if worsening such as fever or difficulty breathing. Departure - Departure Time of Disposition: 21:58 Disposition: Home, Self-Care 01 Clinical Impression: Dysuria, Anxiety - Discharge Information Instructions: Dysuria Referrals: Nabeel Dubon NP [Primary Care Provider] - Forms: ED Department Discharge Care Plan Goals: Stop antibiotics but continue your antianxiety medication. If side effects are being caused by the antianxiety medication, they will tend to improve with time. Return if worsening such as fever or difficulty breathing, increased pain or other concerns. Sepsis Event Note (ED) - Evaluation Sepsis Screening Result: No Definite Risk - Focused Exam Vital Signs: Vital Signs Temp Pulse Resp BP Pulse Ox 04/21/20 20:34 96.7 F L 84 16 150/80 H 94 L 04/21/20 20:33 96.7 F L 84 16 150/80 H 94 L
== END 2020-04-21 21:58 | disposition home or self-care (01) ==
LOC: JP.ED 19:47
DX: R30.0 Dysuria (principal); F41.9 Anxiety disorder, unspecified; I12.9 Hypertensive chronic kidney disease with stage 1 through stage 4 chronic kidney disease, or unspecified chronic kidney disease; N18.9 Chronic kidney disease, unspecified; J44.9 Chronic obstructive pulmonary disease, unspecified; I25.10 Atherosclerotic heart disease of native coronary artery without angina pectoris; I25.2 Old myocardial infarction; E78.00 Pure hypercholesterolemia, unspecified; M19.90 Unspecified osteoarthritis, unspecified site; F32.9 Major depressive disorder, single episode, unspecified; Z88.2 Allergy status to sulfonamides; Z79.82 Long term (current) use of aspirin; Z79.899 Other long term (current) drug therapy
CPT/HCPCS: 81001; 99282; 99283

== ENCOUNTER 2020-12-25 17:35 | Emergency (ER) | payer MEDICARE, BC ==
--- NOTE | 2020-12-25 18:13 | EDM.PDOC ---
ED HPI GENERAL MEDICAL PROBLEM - General Chief Complaint: Respiratory Problem Stated Complaint: DIFFICULTY BREATHING Time Seen by Provider: 12/25/20 18:10 Source of Information: Reports: Patient History Limitations: Reports: No Limitations - History of Present Illness INITIAL COMMENTS - FREE TEXT/NARRATIVE: pt woke up about 4 am very sob. She has had increasesd ankle swelling. No fevers. Onset: Today, Other ( started about 4 am. ) Duration: Hour(s): Location: Reports: Chest, Other ( generalized burning. ) Associated Symptoms: Reports: Shortness of Breath - Related Data Allergies Allergy/AdvReac Type Severity Reaction Status Date / Time Sulfa (Sulfonamide Allergy Mouth Sores Verified 12/25/20 18:12 Antibiotics) Home Meds: Home Meds Albuterol Sulfate [Proair Hfa] 2 puff IH Q6H PRN 08/21/14 [History] Albuterol/Ipratropium [DuoNeb 3.0-0.5 MG/3 ML] 1 ampule IH Q6H PRN 08/21/14 [History] Aspirin [Halfprin] 81 mg PO DAILY 08/21/14 [History] Calcium Carbonate [Tums] 500 mg PO ASDIRECTED PRN 08/21/14 [History] Fluticasone Propion/Salmeterol [Advair 250-50 Diskus] 1 puff IH BID 08/21/14 [History] Furosemide 60 mg PO DAILY 08/21/14 [History] Losartan [Cozaar] 100 mg PO DAILY 08/21/14 [History] Montelukast Sodium [Singulair] 10 mg PO DAILY 08/21/14 [History] Nitroglycerin 0.4 mg SL ASDIRECTED PRN 08/21/14 [History] atorvaSTATin [Lipitor] 40 mg PO DAILY 08/21/14 [History] hydroCHLOROthiazide [Hydrochlorothiazide] 12.5 mg PO DAILY 06/22/17 [History] amLODIPine Besylate [Amlodipine Besylate] 5 mg PO DAILY 01/16/18 [History] carvediloL [Carvedilol] 6.25 mg PO BID 01/16/18 [History] Umeclidinium Distant [Incruse Ellipta*] 62.5 mcg IH DAILY 04/11/20 [History] Escitalopram [Lexapro] 10 mg PO DAILY 04/21/20 [History] Potassium Chloride [Klor-Con M10] 10 meq PO BIDAC 12/25/20 [History] Past Medical History HEENT History: Reports: Hard of Hearing Cardiovascular History: Reports: Bypass, CAD, High Cholesterol, Hypertension, [place], SOB on Exertion Respiratory History: Reports: Asthma, COPD, SOB Other Respiratory History: emphasema Genitourinary History: Reports: None, Chronic Renal Insuffiency, Urinary Incontinence Other Genitourinary History: renal artery stenosis [employer]IL [employer] History: Reports: Musculoskeletal History: Reports: Arthritis, Fracture Other Musculoskeletal History: osteopenia Psychiatric History: Reports: Anxiety, Depression - Infectious Disease History Infectious Disease History: Reports: Chicken Pox, Measles, Pertussis (Whooping Cough) - Past Surgical History Head Surgeries/Procedures: Reports: None HEENT Surgical History: Reports: Tonsillectomy Cardiovascular Surgical History: Reports: Carotid Stents, Coronary Artery Bypass, Coronary Artery Stent Respiratory Surgical History: Reports: None GI Surgical History: Reports: None Female Surgical History: Reports: Other (See Below) Other Female Surgeries/Procedures: kidney stents Musculoskeletal Surgical History: Reports: None Dermatological Surgical History: Reports: None Social & Family History - Family History Family Medical History: No Pertinent Family History - Tobacco Use Tobacco Use Status *Q: Never Tobacco User - Caffeine Use Caffeine Use: Reports: Coffee - Recreational Drug Use Recreational Drug Use: No ED ROS GENERAL - Review of Systems Review Of Systems: See Below Constitutional: Reports: Diaphoresis, Other (sob) HEENT: Reports: No Symptoms Respiratory: Reports: Shortness of Breath, Cough Cardiovascular: Reports: No Symptoms Endocrine: Reports: No Symptoms GI/Abdominal: Reports: No Symptoms : Reports: No Symptoms Musculoskeletal: Reports: Other ( burning sensation over ) ED EXAM, GENERAL - Physical Exam Exam: See Below Free Text/Narrative:: pt arrived after having a episode of acute sob about 4 am. She did feel quite wheezy. She did not have a fever. She has known copd. Her o2 sat is 96. Exam Limited By: No Limitations General Appearance: Alert, Anxious, Other ( bp is elevated. ) Ears: Normal TMs Nose: Normal Inspection Throat/Mouth: Normal Inspection Head: Atraumatic Neck: Normal Inspection Respiratory/Chest: Decreased Breath Sounds, Crackles, Wheezing Cardiovascular: Regular Rate, Rhythm GI/Abdominal: Soft, Non-Tender (Female) Exam: Deferred Rectal (Female) Exam: Deferred Back Exam: Normal Inspection Extremities: Pedal Edema, Other (plus 3. ) Neurological: Alert, Oriented, Normal Cognition Psychiatric: Anxious Course - Vital Signs Last Recorded V/S: Last Vital Signs Temp 36.7 C 12/25/20 18:05 Pulse 75 12/25/20 18:40 Resp 20 12/25/20 18:05 BP 198/83 H 12/25/20 18:40 Pulse Ox 95 12/25/20 18:40 - Orders/Labs/Meds Labs: Laboratory Tests 12/25/20 12/25/20 12/25/20 Range/Units 18:08 18:09 18:18 WBC 7.4 (4.5-11.0) K/uL RBC 4.10 (3.30-5.50) M/uL Hgb 12.8 (12.0-15.0) g/dL Hct 40.2 (36.0-48.0) % MCV 98 (80-98) fL MCH 31 (27-31) pg MCHC 32 (32-36) % Plt Count 225 (150-400) K/uL Neut % (Auto) 53 (36-66) % Lymph % (Auto) 28 (24-44) % Stanton % (Auto) 9 H (2-6) % Eos % (Auto) 10 H (2-4) % Baso % (Auto) 1 (0-1) % Sodium 140 (140-148) mmol/L Potassium 3.3 L (3.6-5.2) mmol/L Chloride 99 L (100-108) mmol/L Carbon Dioxide 31 (21-32) mmol/L Anion Gap 13.3 (5.0-14.0) mmol/L BUN 15 (7-18) mg/dL Creatinine 0.9 (0.6-1.0) mg/dL Est Cr Clr Drug Dosing 31.63 mL/min Estimated GFR (MDRD) 59 L (>60) Glucose 114 H (74-106) mg/dL Calcium 9.1 (8.5-10.1) mg/dL Total Bilirubin 0.3 (0.2-1.0) mg/dL AST 13 L (15-37) U/L ALT 20 (12-78) U/L Alkaline Phosphatase 67 (46-116) U/L NT-Pro-B Natriuret Pep 1022 H (5-450) pg/mL Total Protein 7.1 (6.4-8.2) g/dL Albumin 3.7 (3.4-5.0) g/dL Globulin 3.4 (2.3-3.5) g/dL Albumin/Globulin Ratio 1.1 L (1.2-2.2) Urine Color (YELLOW) Urine Appearance (CLEAR) Urine pH (5.0-8.0) Ur Specific [place] (1.008-1.030) Urine Protein (NEGATIVE) mg/dL Urine Glucose (UA) (NEGATIVE) mg/dL Urine Ketones (NEGATIVE) mg/dL Urine Occult Blood (NEGATIVE) Urine Nitrite (NEGATIVE) Urine Bilirubin (NEGATIVE) Urine Urobilinogen (0.2-1.0) EU/dL Ur Leukocyte Esterase (NEGATIVE) Urine RBC (0-5) Urine WBC (0-5) Ur Epithelial Cells Amorphous Sediment Urine Bacteria Urine Mucus 12/25/20 Range/Units 19:04 WBC (4.5-11.0) K/uL RBC (3.30-5.50) M/uL Hgb (12.0-15.0) g/dL Hct (36.0-48.0) % MCV (80-98) fL MCH (27-31) pg MCHC (32-36) % Plt Count (150-400) K/uL Neut % (Auto) (36-66) % Lymph % (Auto) (24-44) % Stanton % (Auto) (2-6) % Eos % (Auto) (2-4) % Baso % (Auto) (0-1) % Sodium (140-148) mmol/L Potassium (3.6-5.2) mmol/L Chloride (100-108) mmol/L Carbon Dioxide (21-32) mmol/L Anion Gap (5.0-14.0) mmol/L BUN (7-18) mg/dL Creatinine (0.6-1.0) mg/dL Est Cr Clr Drug Dosing mL/min Estimated GFR (MDRD) (>60) Glucose (74-106) mg/dL Calcium (8.5-10.1) mg/dL Total Bilirubin (0.2-1.0) mg/dL AST (15-37) U/L ALT (12-78) U/L Alkaline Phosphatase (46-116) U/L NT-Pro-B Natriuret Pep (5-450) pg/mL Total Protein (6.4-8.2) g/dL Albumin (3.4-5.0) g/dL Globulin (2.3-3.5) g/dL Albumin/Globulin Ratio (1.2-2.2) Urine Color Yellow (YELLOW) Urine Appearance Slightly cloudy A (CLEAR) Urine pH 6.0 (5.0-8.0) Ur Specific [place] 1.020 (1.008-1.030) Urine Protein Negative (NEGATIVE) mg/dL Urine Glucose (UA) Negative (NEGATIVE) mg/dL Urine Ketones Negative (NEGATIVE) mg/dL Urine Occult Blood Trace-intact H (NEGATIVE) Urine Nitrite Negative (NEGATIVE) Urine Bilirubin Negative (NEGATIVE) Urine Urobilinogen 0.2 (0.2-1.0) EU/dL Ur Leukocyte Esterase Trace H (NEGATIVE) Urine RBC 0-5 (0-5) Urine WBC 0-5 (0-5) Ur Epithelial Cells Few Amorphous Sediment Not seen Urine Bacteria Not seen Urine Mucus Not seen Meds: Medications Discontinued Medications Generic Name Dose Route Start Last Admin Trade Name Freq PRN Reason Stop Dose Admin Albuterol 2.5 mg 12/25/20 18:29 12/25/20 18:57 Albuterol 0.083% 2.5 Mg/3 Ml Neb Soln NEB 12/25/20 18:30 2.5 mg ONETIME ONE Administration Azithromycin 500 mg 12/25/20 19:54 12/25/20 20:01 Azithromycin 250 Mg Tab PO 12/25/20 19:55 500 mg ONETIME ONE Administration Furosemide 60 mg 12/25/20 18:30 12/25/20 19:03 Furosemide 40 Mg/4 Ml Vial IVPUSH 12/25/20 18:31 60 mg ONETIME ONE Administration Methylprednisolone Sodium Succinate 125 mg 12/25/20 18:28 12/25/20 19:03 Methylprednisolone Sodium Succinate 125 Mg/2 Ml Sdv IVPUSH 12/25/20 18:29 125 mg ONETIME ONE Administration Potassium Chloride 20 meq 12/25/20 18:59 12/25/20 19:59 Potassium Chloride 20 Meq Tab.Er PO 12/25/20 19:00 20 meq ONETIME ONE Administration Sodium Chloride 10 ml 12/25/20 18:28 12/25/20 19:04 Sodium Chloride 0.9% 10 Ml Syringe FLUSH 10 ml ASDIRECTED PRN Administration Keep Vein Open - Re-Assessments/Exams Free Text/Narrative Re-Assessment/Exam: 12/25/20 20:05 pt was found to have a borderline k. Her chest xray did not reveal effusions or infiltrate. Her wbc was normal. BNP was elevated. Pt was given solumedrol, a albuterol neb and lasix 60 mg. She lives at [facility] so she does have support. She did put out some urin from the lasix. She did look much more comfortable. Departure - Departure Time of Disposition: 19:56 Disposition: Home, Self-Care 01 Condition: Fair Clinical Impression: COPD exacerbation, Fluid overload, unspecified - Discharge Information Instructions: Chronic Obstructive Pulmonary Disease Exacerbation, [id number] Referrals: Nabeel Dubon FAMILY READINESS SUPPORT ASSISTANT [Primary Care Provider] - Forms: ED Department Discharge Care Plan Goals: continue same meds, use duol nebs regularly 3 times daily, zithromax 250 daily for 5 days, predisone as directed for 5 days. follow up with regular Dr in 5-6 days. Sepsis Event Note (ED) - Evaluation Sepsis Screening Result: No Definite Risk
[2020-12-25] MEDS ORDERED: methylPREDNISolone Sodium Succinate 125 MG/2 ML SDV IVPUSH ONE (18:28)
[2020-12-25] MEDS ORDERED: Sodium Chloride 0.9% 10 ML Syringe FLUSH PRN (18:28)
[2020-12-25] MEDS ORDERED: Albuterol 0.083% 2.5 MG/3 ML Neb Soln NEB ONE (18:29)
[2020-12-25] MEDS ORDERED: Furosemide 40 MG/4 ML VIAL IVPUSH ONE (18:30)
[2020-12-25 18:41] VITALS: BP 198/83; PULSE 75
[2020-12-25] MEDS ORDERED: Potassium Chloride 20 MEQ Tab.ER PO ONE (18:59)
[2020-12-25] MEDS ORDERED: Azithromycin 250 MG Tab PO ONE (19:54)
--- NOTE | 2020-12-26 08:54 | CR ---
CHEST: Portable 12/25/2020 and 6:27 PM CLINICAL HISTORY:SOB COMPARISON:2019 FINDINGS: The heart size, pulmonary vascularity and hilar structures are normal. No infiltrate effusion or pneumothorax is seen. There has been previous sternotomy. There are atherosclerotic changes in the aorta. IMPRESSION: No acute cardiopulmonary process.
== END 2020-12-25 20:30 | disposition home or self-care (01) ==
LOC: JP.ED 17:35
DX: J44.1 Chronic obstructive pulmonary disease with (acute) exacerbation (principal); E87.70 Fluid overload, unspecified; I25.10 Atherosclerotic heart disease of native coronary artery without angina pectoris; E78.00 Pure hypercholesterolemia, unspecified; I25.2 Old myocardial infarction; J44.9 Chronic obstructive pulmonary disease, unspecified; I12.9 Hypertensive chronic kidney disease with stage 1 through stage 4 chronic kidney disease, or unspecified chronic kidney disease; N18.9 Chronic kidney disease, unspecified; M19.90 Unspecified osteoarthritis, unspecified site; Z88.2 Allergy status to sulfonamides; Z79.82 Long term (current) use of aspirin; Z79.899 Other long term (current) drug therapy; Z95.1 Presence of aortocoronary bypass graft
CPT/HCPCS: 36415; 71045; 80053; 81001; 83880; 85025; 94640; 96374; 96375; 99285; A9270; J1940; J2930; 99284

== ENCOUNTER 2021-03-27 22:11 | Inpatient (IN) | payer MEDICARE, BC ==
[2021-03-27] MEDS ORDERED: Sodium Chloride 0.9% 10 ML Syringe FLUSH PRN (22:31)
--- NOTE | 2021-03-27 22:37 | EDM.PDOC ---
ED HPI GENERAL MEDICAL PROBLEM - General Chief Complaint: Cardiovascular Problem Stated Complaint: STROKE VIA NORTH Time Seen by Provider: 03/27/21 22:11 Source of Information: Reports: EMS, Family History Limitations: Reports: Altered Mental Status - History of Present Illness INITIAL COMMENTS - FREE TEXT/NARRATIVE: Patient presents emergency room via EMS today secondary to episode that occurred at home when patient became unresponsive. Per EMS she was found collapsed in a chair family got her to the floor and they apparently started some chest compressions because of her agonal respirations and struggling to breathe. Upon their assessment there was not any need for continued compressions as she did have a pulse/heart rate. She did continue to have some difficulty breathing per the report although did not require any intubation and son at the bedside stated that she did not wish to be intubated her POLST form was provided to EMS which states the same. EMS because of the sudden change in patient's status offered to fly her to [place] and son at the bedside declined wanting her to come to [facility] for evaluation. Upon arrival to the emergency room patient was able to lift her arms bilaterally and squeeze my fingers although they were weak in nature they were equal patient did have spontaneous eye openings and did follow us in the room but she did not have any apparent verbal response to us EMS reported that she had repeated his name during transfer ER nurse did attempt to get patient to answer limited questions of yes and no by having her blink but is unsure that there was any significant response that was interpretable PMH/Meds--reviewed in EMR as well as paperwork of medication list that family provided to EMS POLST form provided by EMS, noted for DNR/DNI, will accept IVF but no tube feedings (this has been placed on chart) Per family report patient has received her COVID immunization 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 - Related Data Allergies Allergy/AdvReac Type Severity Reaction Status Date / Time Sulfa (Sulfonamide Allergy Mouth Sores Verified 03/27/21 23:05 Antibiotics) Home Meds: Home Meds Albuterol Sulfate [Proair Hfa] 2 puff IH Q6H PRN 08/21/14 [History] Albuterol/Ipratropium [DuoNeb 3.0-0.5 MG/3 ML] 1 ampule IH Q6H PRN 08/21/14 [History] Aspirin [Halfprin] 81 mg PO DAILY 08/21/14 [History] Calcium Carbonate [Tums] 500 mg PO ASDIRECTED PRN 08/21/14 [History] Fluticasone Propion/Salmeterol [Advair 250-50 Diskus] 1 puff IH BID 08/21/14 [History] Furosemide 60 mg PO DAILY 08/21/14 [History] Losartan [Cozaar] 100 mg PO DAILY 08/21/14 [History] Montelukast Sodium [Singulair] 10 mg PO DAILY 08/21/14 [History] Nitroglycerin 0.4 mg SL ASDIRECTED PRN 08/21/14 [History] atorvaSTATin [Lipitor] 40 mg PO DAILY 08/21/14 [History] hydroCHLOROthiazide [Hydrochlorothiazide] 12.5 mg PO DAILY 06/22/17 [History] amLODIPine Besylate [Amlodipine Besylate] 5 mg PO DAILY 01/16/18 [History] carvediloL [Carvedilol] 6.25 mg PO BID 01/16/18 [History] Umeclidinium Fonda [Incruse Ellipta*] 62.5 mcg IH DAILY 04/11/20 [History] Escitalopram [Lexapro] 10 mg PO DAILY 04/21/20 [History] Potassium Chloride [Klor-Con M10] 10 meq PO BIDAC 12/25/20 [History] Past Medical History HEENT History: Reports: Hard of Hearing Cardiovascular History: Reports: Bypass, CAD, High Cholesterol, Hypertension, [place], SOB on Exertion Respiratory History: Reports: Asthma, COPD, SOB Other Respiratory History: emphasema Genitourinary History: Reports: Chronic Renal Insuffiency, Urinary Incontinence Other Genitourinary History: renal artery stenosis 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: Reports: Musculoskeletal History: Reports: Arthritis, Fracture Other Musculoskeletal History: osteopenia Psychiatric History: Reports: Anxiety, Depression - Infectious Disease History Infectious Disease History: Reports: Chicken Pox, Measles, Pertussis (Whooping Cough) - Past Surgical History Head Surgeries/Procedures: Reports: None HEENT Surgical History: Reports: Tonsillectomy Cardiovascular Surgical History: Reports: Carotid Stents, Coronary Artery Bypass, Coronary Artery Stent Respiratory Surgical History: Reports: None GI Surgical History: Reports: None Female Surgical History: Reports: Other (See Below) Other Female Surgeries/Procedures: kidney stents Musculoskeletal Surgical History: Reports: None Dermatological Surgical History: Reports: None Social & Family History - Family History Family Medical History: No Pertinent Family History - Caffeine Use Caffeine Use: Reports: Coffee ED ROS GENERAL - Review of Systems Review Of Systems: Unable To Obtain Reason Not Obtained: change in mental status ED EXAM, GENERAL - Physical Exam Exam: See Below Exam Limited By: Altered Mental Status General Appearance: Alert (has spontaneous eye opening to verbal response, does look around but then closes eyes), Lethargic, Obese Eye Exam: Bilateral Eye: EOMI, Normal Inspection, PERRL Ears: Normal External Exam, Hearing Grossly Normal Nose: Normal Inspection Throat/Mouth: Normal Inspection, Normal Oropharynx, No Airway Compromise Head: Atraumatic, Normocephalic Neck: Normal Inspection, Supple, Non-Tender. No: Lymphadenopathy (R), Lymphadenopathy (L) Respiratory/Chest: Lungs Clear, Normal Breath Sounds, Respiratory Distress (patient is noted to be tachypneic in nature with RR-30's, she does appear to be working to breath). No: Crackles, Rales, Rhonchi Cardiovascular: Normal Peripheral Pulses, Regular Rate, Rhythm, No Edema, No Murmur Peripheral Pulses: 2+: Radial (L), Radial (R) GI/Abdominal: Normal Bowel Sounds, Soft, Non-Tender (Female) Exam: Deferred Rectal (Female) Exam: Deferred Neurological: Alert (arouses to verbal stimuli but no further assessment as not verbally answering questions, has noted respiratory distress) Psychiatric: Other (unable to assess due to patient status) Skin Exam: Warm, Dry, Intact, Normal Color #1 Interpretation EKG Date: 03/28/21 Time: 22:16 Rhythm: Other (sinus rhythm, atrial premature complex, low voltage, baseline wander. also on electronic report is noted for minimal ST depression but this is not noted and likely r/t baseline wander) Rate (Beats/Min): 94 [place]: Normal P-Wave: Present ([place] 183) QRS: Normal (QRS-102) ST-T: Normal QT: Normal (QT/QTc-352/441) Course - Vital Signs Text/Narrative:: 2215--discussion with family in the family room just after patient arrival to review patient's POLST form and request and further care. Son x2 are present at the bedside 1 son acts as primary decision maker he states that he did not want his mother taken to [place] and declined air at their house. He states that there was some increasing shortness of breath today of his mom but when she came in from being outside this afternoon she did make supper for her he was not present for that as patient lives with her in their own household and son was at home. He states that his father called him around 2129 and said that she had collapsed in the chair they he came over and they got her to the floor and because of the noted apparent struggle with breathing they started some chest compressions before EMS arrived. Unclear as to when she collapsed as her spouse has some early dementia and he did not tell the son and son states that likely his mother told her to call the Center otherwise nobody would have been contacted. At this time they do not want any work measures they continue to support mother's POLST form which is no CPR no intubation I did discuss with him use of BiPAP to help with respiratory status son stated that his mother did not like a mask but they would be willing to try that. At this time we are waiting for initial labs and radiology to return will update accordingly 2320--reviewed labs noted for white blood cell count of 18 chest film preliminary reading was completed noted to have some right mid to lower lobe opacities final radiology reading is pending 2323--received faxed report of radiology reading noted for a small medial right basilar and infrahilar opacities although noted to be less prominent compared to prior studies. 2330--reviewed call from [facility], no acute changes on CT head/report to follow via fax [phone]--notified by SPANISH TRANSLATOR that patient becoming more unresponsive than at time of arrival, concern about respiratory status as felt to have more agonal in nature. respiratory rate is noted to be in the 20s to 30s with a pulse ox 90 sat 97% on 5 L of nasal cannula she does have a nasal trumpet that is present in heart rate in the 70s BP155/76. This time will attempt to see if patient will tolerate BiPAP therapy. RT will be called and will obtain an ABG it is likely that patient is CO2 retaining and this is why she has become less responsive in nature 0115--in room to d/w family jose's ER findings. they state that she is waking up after putting on bipap, lifting her head and looking at them. she does say yes to me when ask if the bipap is helping her breathing. at this time patient is ready for admission. call placed to on-call physician, awaiting call back at this time 0125--received call from Dr Cai, Hospitalist. case was discussed and she verbalized acceptance for admission, will be in to see patient shortly Last Recorded V/S: Last Vital Signs Temp 97.8 F 03/27/21 22:39 Pulse 89 03/27/21 23:03 Resp 36 H 03/27/21 23:03 BP 179/74 H 03/27/21 23:03 Pulse Ox 95 03/27/21 23:03 - Orders/Labs/Meds Orders: Active Orders 24 hr Category Date Time Status BIPAP [RT BiPAP/CPAP] [RC] ASDIRECTED Care 03/27/21 23:51 Active Cardiac Monitoring [RC] .As Directed Care 03/27/21 22:31 Active Cardiac Monitoring [RC] .As Directed Care 03/27/21 22:35 Active EKG Documentation Completion [RC] ASDIRECTED Care 03/27/21 22:33 Active Neuro Check [RC] Q1H Care 03/27/21 22:32 Active Oxygen Therapy [RC] ASDIRECTED Care 03/27/21 22:31 Active Peripheral IV Care [RC] . DIRECTED Care 03/27/21 22:33 Active Pulse Oximetry [RC] CONTINUOUS Care 03/27/21 22:32 Active Nothing per Oral Now Diet [DIET] Diet 03/27/21 Breakfast Active UA W/MICROSCOPIC [URIN] Stat Lab 03/27/21 22:31 Ordered Sodium Chloride 0.9% [Saline Flush] Med 03/27/21 22:31 Active 10 ml FLUSH ASDIRECTED PRN Isolation [COMM] Stat Oth 03/28/21 00:24 Ordered Isolation [COMM] Stat Oth 03/28/21 00:26 Ordered Peripheral IV Insertion Adult [OM.PC] Urgent Oth 03/27/21 22:31 Ordered Resuscitation Status Stat Resus Stat 03/27/21 22:35 Ordered EKG 12 Lead [EK] Stat Ther 03/27/21 22:31 Ordered Medication Orders Sodium Chloride (Sodium Chloride 0.9% 10 Ml Syringe) 10 ml FLUSH ASDIRECTED PRN PRN Reason: Keep Vein Open Last Admin: 03/28/21 00:44 Dose: 10 ml Documented by: THOMAS Labs: Laboratory Tests 03/27/21 03/27/21 03/27/21 Range/Units 22:41 22:50 22:50 WBC 18.1 H (4.5-11.0) K/uL RBC 3.94 (3.30-5.50) M/uL Hgb 12.6 (12.0-15.0) g/dL Hct 38.7 (36.0-48.0) % MCV 98 (80-98) fL MCH 32 H (27-31) pg MCHC 33 (32-36) % Plt Count 262 (150-400) K/uL Neut % (Auto) 67.3 H (36-66) % Lymph % (Auto) 19.1 L (24-44) % Rock % (Auto) 4.7 (2-6) % Eos % (Auto) 8.1 H (2-4) % Baso % (Auto) 0.8 (0-1) % PT 10.5 (9.5-12.0) sec INR 0.96 (0.80-1.20) APTT 25.8 L (27.0-36.0) sec Puncture Site ABG pH (7.350-7.450) ABG pCO2 (35.0-42.0) mmHg ABG pO2 (75.0-100.0) mmHg ABG HCO3 (22.0-26.0) mmol/L ABG Total CO2 (21.0-25.0) mmol/L ABG O2 Saturation (95.0-98.0) % ABG O2 Content (15.0-23.0) %vol ABG Base Excess mm/L ABG Hemoglobin (12.0-16.0) g/dL ABG Oxyhemoglobin % ABG Carboxyhemoglobin (0.0-1.6) % ABG Methemoglobin % Jens Test O2 Delivery Device Oxygen Flow Rate L Sodium (140-148) mmol/L Potassium (3.6-5.2) mmol/L Chloride (100-108) mmol/L Carbon Dioxide (21-32) mmol/L Anion Gap (5.0-14.0) mmol/L BUN (7-18) mg/dL Creatinine (0.6-1.0) mg/dL Est Cr Clr Drug Dosing mL/min Estimated GFR (MDRD) (>60) Glucose (74-106) mg/dL POC Glucose 183 H (74-106) mg/dL Lactic Acid (0.4-2.0) mmol/L Calcium (8.5-10.1) mg/dL Magnesium (1.8-2.4) mg/dL Total Bilirubin (0.2-1.0) mg/dL AST (15-37) U/L ALT (12-78) U/L Alkaline Phosphatase (46-116) U/L Ammonia (11-32) umol/L Troponin I (0.000-0.056) ng/mL Total Protein (6.4-8.2) g/dL Albumin (3.4-5.0) g/dL Globulin (2.3-3.5) g/dL Albumin/Globulin Ratio (1.2-2.2) Influenza Type A RNA (NEGATIVE) RSV RNA (INAAT) (NEGATIVE) Influenza Type B RNA (NEGATIVE) SARS-CoV-2 RNA (MIKAELA) (NEGATIVE) 03/27/21 03/27/21 03/27/21 Range/Units 22:50 22:50 22:50 WBC (4.5-11.0) K/uL RBC (3.30-5.50) M/uL Hgb (12.0-15.0) g/dL Hct (36.0-48.0) % MCV (80-98) fL MCH (27-31) pg MCHC (32-36) % Plt Count (150-400) K/uL Neut % (Auto) (36-66) % Lymph % (Auto) (24-44) % Rock % (Auto) (2-6) % Eos % (Auto) (2-4) % Baso % (Auto) (0-1) % PT (9.5-12.0) sec INR (0.80-1.20) APTT (27.0-36.0) sec Puncture Site ABG pH (7.350-7.450) ABG pCO2 (35.0-42.0) mmHg ABG pO2 (75.0-100.0) mmHg ABG HCO3 (22.0-26.0) mmol/L ABG Total CO2 (21.0-25.0) mmol/L ABG O2 Saturation (95.0-98.0) % ABG O2 Content (15.0-23.0) %vol ABG Base Excess mm/L ABG Hemoglobin (12.0-16.0) g/dL ABG Oxyhemoglobin % ABG Carboxyhemoglobin (0.0-1.6) % ABG Methemoglobin % Jens Test O2 Delivery Device Oxygen Flow Rate L Sodium 135 L (140-148) mmol/L Potassium 4.0 (3.6-5.2) mmol/L Chloride 95 L (100-108) mmol/L Carbon Dioxide 31 (21-32) mmol/L Anion Gap 13.0 (5.0-14.0) mmol/L BUN 18 (7-18) mg/dL Creatinine 1.0 (0.6-1.0) mg/dL Est Cr Clr Drug Dosing 28.47 mL/min Estimated GFR (MDRD) 52 L (>60) Glucose 186 H (74-106) mg/dL POC Glucose (74-106) mg/dL Lactic Acid 2.4 H (0.4-2.0) mmol/L Calcium 7.9 L (8.5-10.1) mg/dL Magnesium 2.2 (1.8-2.4) mg/dL Total Bilirubin 0.4 (0.2-1.0) mg/dL AST 52 H D (15-37) U/L ALT 48 D (12-78) U/L Alkaline Phosphatase 90 (46-116) U/L Ammonia 37 H (11-32) umol/L Troponin I < 0.017 (0.000-0.056) ng/mL Total Protein 7.1 (6.4-8.2) g/dL Albumin 3.7 (3.4-5.0) g/dL Globulin 3.4 (2.3-3.5) g/dL Albumin/Globulin Ratio 1.1 L (1.2-2.2) Influenza Type A RNA (NEGATIVE) RSV RNA (INAAT) (NEGATIVE) Influenza Type B RNA (NEGATIVE) SARS-CoV-2 RNA (MIKAELA) (NEGATIVE) 03/27/21 03/28/21 Range/Units 23:52 00:30 WBC (4.5-11.0) K/uL RBC (3.30-5.50) M/uL Hgb (12.0-15.0) g/dL Hct (36.0-48.0) % MCV (80-98) fL MCH (27-31) pg MCHC (32-36) % Plt Count (150-400) K/uL Neut % (Auto) (36-66) % Lymph % (Auto) (24-44) % Rock % (Auto) (2-6) % Eos % (Auto) (2-4) % Baso % (Auto) (0-1) % PT (9.5-12.0) sec INR (0.80-1.20) APTT (27.0-36.0) sec Puncture Site Lt radial ABG pH 7.139 L* (7.350-7.450) ABG pCO2 97.7 H* (35.0-42.0) mmHg ABG pO2 141.0 H (75.0-100.0) mmHg ABG HCO3 31.7 H (22.0-26.0) mmol/L ABG Total CO2 30.4 H (21.0-25.0) mmol/L ABG O2 Saturation 97.7 (95.0-98.0) % ABG O2 Content 17.9 (15.0-23.0) %vol ABG Base Excess -0.3 mm/L ABG Hemoglobin 13.0 (12.0-16.0) g/dL ABG Oxyhemoglobin 96.7 % ABG Carboxyhemoglobin < 0.5 (0.0-1.6) % ABG Methemoglobin 0.6 % Jens Test Pass O2 Delivery Device Nasal cannula Oxygen Flow Rate 5.0 L Sodium (140-148) mmol/L Potassium (3.6-5.2) mmol/L Chloride (100-108) mmol/L Carbon Dioxide (21-32) mmol/L Anion Gap (5.0-14.0) mmol/L BUN (7-18) mg/dL Creatinine (0.6-1.0) mg/dL Est Cr Clr Drug Dosing mL/min Estimated GFR (MDRD) (>60) Glucose (74-106) mg/dL POC Glucose (74-106) mg/dL Lactic Acid (0.4-2.0) mmol/L Calcium (8.5-10.1) mg/dL Magnesium (1.8-2.4) mg/dL Total Bilirubin (0.2-1.0) mg/dL AST (15-37) U/L ALT (12-78) U/L Alkaline Phosphatase (46-116) U/L Ammonia (11-32) umol/L Troponin I (0.000-0.056) ng/mL Total Protein (6.4-8.2) g/dL Albumin (3.4-5.0) g/dL Globulin (2.3-3.5) g/dL Albumin/Globulin Ratio (1.2-2.2) Influenza Type A RNA Negative (NEGATIVE) RSV RNA (INAAT) Negative (NEGATIVE) Influenza Type B RNA Negative (NEGATIVE) SARS-CoV-2 RNA (MIKAELA) Negative (NEGATIVE) Meds: Medications Generic Name Dose Route Start Last Admin Trade Name Freq PRN Reason Stop Dose Admin Sodium Chloride 10 ml 03/27/21 22:31 03/28/21 00:44 Sodium Chloride 0.9% 10 Ml Syringe FLUSH 10 ml ASDIRECTED PRN Administration Keep Vein Open Discontinued Medications Generic Name Dose Route Start Last Admin Trade Name Freq PRN Reason Stop Dose Admin Ceftriaxone Sodium 1 gm/ 50 mls @ 100 mls/hr 03/28/21 00:29 03/28/21 00:41 Sodium Chloride IV 03/28/21 00:58 100 mls/hr ONETIME ONE Administration Departure - Departure Time of Disposition: 01:28 Disposition: Admitted As Inpatient 64 Condition: Serious Clinical Impression: Right lower lobe pneumonia, Acute respiratory failure with hypercapnia Referrals: Nabeel Dubon NO EXPERIENCE [Primary Care Provider] - Forms: ED Department Discharge Critical Care Note - Critical Care Note Total Time (mins): 35 Sepsis Event Note (ED) - Focused Exam Vital Signs: Vital Signs Temp Pulse Resp BP Pulse Ox 03/27/21 23:03 89 36 H 179/74 H 95 03/27/21 22:39 97.8 F 89 34 H 185/74 H 96 03/27/21 22:34 97.8 F 89 34 H 185/74 H 96 - My Orders Last 24 Hours: My Active Orders 03/27/21 Breakfast Nothing per Oral Now Diet [DIET] 03/27/21 22:31 Cardiac Monitoring [RC] .As Directed Oxygen Therapy [RC] ASDIRECTED UA W/MICROSCOPIC [URIN] Stat Sodium Chloride 0.9% [Saline Flush] 10 ml FLUSH ASDIRECTED PRN Peripheral IV Insertion Adult [OM.PC] Urgent EKG 12 Lead [EK] Stat 03/27/21 22:32 Neuro Check [RC] Q1H Pulse Oximetry [RC] CONTINUOUS 03/27/21 22:33 EKG Documentation Completion [RC] ASDIRECTED Peripheral IV Care [RC] . DIRECTED 03/27/21 22:35 Cardiac Monitoring [RC] .As Directed Resuscitation Status Stat 03/27/21 23:51 BIPAP [RT BiPAP/CPAP] [RC] ASDIRECTED 03/28/21 00:24 Isolation [COMM] Stat 03/28/21 00:26 Isolation [COMM] Stat - Assessment/Plan Last 24 Hours: My Active Orders 03/27/21 Breakfast Nothing per Oral Now Diet [DIET] 03/27/21 22:31 Cardiac Monitoring [RC] .As Directed Oxygen Therapy [RC] ASDIRECTED UA W/MICROSCOPIC [URIN] Stat Sodium Chloride 0.9% [Saline Flush] 10 ml FLUSH ASDIRECTED PRN Peripheral IV Insertion Adult [OM.PC] Urgent EKG 12 Lead [EK] Stat 03/27/21 22:32 Neuro Check [RC] Q1H Pulse Oximetry [RC] CONTINUOUS 03/27/21 22:33 EKG Documentation Completion [RC] ASDIRECTED Peripheral IV Care [RC] . DIRECTED 03/27/21 22:35 Cardiac Monitoring [RC] .As Directed Resuscitation Status Stat 03/27/21 23:51 BIPAP [RT BiPAP/CPAP] [RC] ASDIRECTED 03/28/21 00:24 Isolation [COMM] Stat 03/28/21 00:26 Isolation [COMM] Stat
--- NOTE | 2021-03-27 23:21 | CRLCR ---
For Patients: As a result of the Cures Act, medical imaging exams and procedure reports are released immediately into your electronic medical record. You may view this report before your referring provider. If you have questions, please contact your health care provider. Indication: Hypoxia. Mental status change Technique: Chest 1 view Comparison: 12/25/2020 Findings/Impression: Cardiovascular and mediastinum: Stable cardiomediastinal silhouette. Sternotomy sutures again seen. An unfolded, calcified aorta. Lungs and pleural space: A small medial right basilar infrahilar opacity, less prominent compared to the prior study, although this could be related to differences in position and partial obscuration by the cardiac silhouette. If long-term stability of this finding cannot be established with prior chest imaging, CT evaluation should considered. No pleural effusions. No pneumothorax seen. Bones and soft tissues: No significant change. Dictated by Scott Blanchard MD @ 03/27/2021 11:19:24 PM Dictated by: Scott Blanchard MD @ 03/27/2021 23:19:41 (Electronically Signed)
--- NOTE | 2021-03-27 23:29 | CRLCT ---
For Patients: As a result of the Century Cures Act, medical imaging exams and procedure reports are released immediately into your electronic medical record. You may view this report before your referring provider. If you have questions, please contact your health care provider. INDICATION: Mental status change. Stroke protocol TECHNIQUE: CT head without contrast. COMPARISON: None available FINDINGS: This study is limited by motion artifact. There is age-related cortical atrophy. The ventricles are within normal limits for the patient`s age. There is no mass effect or midline shift. White matter hypodensities are suggestive of chronic small vessel ischemic change. There is no definite loss of barajas-white differentiation or gross acute intracranial hemorrhage, given the limitations. No acute calvarial fracture is seen. Heterogeneous mineralization of the sphenoid body could be related to osteopenia. The visualized paranasal sinuses and mastoid air cells are clear. The visualized orbits are grossly unremarkable. A nasal airway is noted. IMPRESSION: A motion limited study. No definite loss of barajas-white differentiation, mass effect or gross acute intracranial hemorrhage. Dictated by Scott Blanchard MD @ 03/27/2021 11:28:10 PM Please note that all CT scans at this facility use dose modulation, iterative reconstruction, and/or weight-based dosing when appropriate to reduce radiation dose to as low as reasonably achievable. Dictated by: Scott Blanchard MD @ 03/27/2021 23:28:31 (Electronically Signed)
[2021-03-28] MEDS ORDERED: cefTRIAXone 1 GM in Sodium Chloride 0.9% 50 ML IV ONE (00:29)
[2021-03-28 01:08] LABS: CORONAVIRUS COVID-19 NAA NEGATIVE (NEGATIVE)
[2021-03-28] MEDS ORDERED: Ketorolac 30 MG/ML SDV IM PRN (01:45)
[2021-03-28] MEDS ORDERED: Ondansetron 4 MG/2 ML SDV IV PRN (01:45)
[2021-03-28] MEDS ORDERED: Albuterol/Ipratropium 3.0-0.5 MG/3 ML Neb Soln NEB PRN (01:45)
[2021-03-28] MEDS ORDERED: Promethazine 6.25 MG in Sodium Chloride 0.9% 50 ML IV PRN (01:45)
[2021-03-28] MEDS ORDERED: Azithromycin 500 MG in Sodium Chloride 0.9% 250 ML IV ONE (02:11)
[2021-03-28] MEDS ORDERED: Albuterol 0.083% 2.5 MG/3 ML Neb Soln NEB PRN (02:11)
[2021-03-28] MEDS ORDERED: Dexamethasone 4 MG/ML SDV IVPUSH SCH (02:15)
[2021-03-28] MEDS ORDERED: Furosemide 40 MG/4 ML VIAL IVPUSH ONE (02:15)
[2021-03-28] MEDS ORDERED: Nitroglycerin 0.4 MG Tab.SL SL PRN (02:16)
[2021-03-28] MEDS ORDERED: LORazepam 2 MG/ML SDV IVPUSH PRN (02:16)
[2021-03-28] MEDS ORDERED: Morphine 2 MG/ML SYRINGE IVPUSH PRN (02:40)
--- NOTE | 2021-03-28 02:48 | PCM.HP.2 ---
H&P History of Present Illness - General Date of Service: 03/28/21 Admit Problem/Dx: Admission Diagnosis/Problem Admission Diagnosis/Problem Acute respiratory failure Source of Information: Family, Provider, RN. No: Patient History Limitations: Reports: Altered Mental Status, Respiratory Distress - History of Present Illness Initial Comments - Free Text/Narative: Patient is an 85yo female with PMH of COPD/Asthma (unclear), CHF, and HTN who presented to the ED after being found unresponsive by her (who has dementia). The called the son to have him call 911, and the son and family that was present in the home felt they should start CPR/Rescue breathing. Upon arrival of EMS they did not feel compressions were required as she did have a pulse, but continued rescue breathing until she arrived at the ED. She was initially started on O2 5L NC as her O2 saturations were in the 70s. She was subsequently started on BiPAP after an ABG showed that she had significant CO2 trapping. Patient is somewhat responsive but cannot respond due to bipap to further questions. Her family wishes that her DNR/DNI status be continued if BiPAP fails. Imaging showed a possible CAP and she was tested negative for flu, rsv and covid. Family does not know her PCP but says it is with tony HAWKINS. Family also endorses that she has continued leg swelling as a chronic problem. Onset of Symptoms: Reports: Today, Sudden Duration of Symptoms: Reports: Improving Improves with: Reports: Medication, Other (O2 and bipap) Associated Symptoms: Reports: Confusion, Cough, Shortness of Breath, Syncope - Related Data Allergies/Adverse Reactions: Allergies Allergy/AdvReac Type Severity Reaction Status Date / Time Sulfa (Sulfonamide Allergy Mouth Sores Verified 03/27/21 23:05 Antibiotics) Home Medications: Home Meds Albuterol Sulfate [Proair Hfa] 2 puff IH Q6H PRN 08/21/14 [History] Albuterol/Ipratropium [DuoNeb 3.0-0.5 MG/3 ML] 1 ampule IH Q6H PRN 08/21/14 [History] Aspirin [Halfprin] 81 mg PO DAILY 08/21/14 [History] Calcium Carbonate [Tums] 500 mg PO ASDIRECTED PRN 08/21/14 [History] Fluticasone Propion/Salmeterol [Advair 250-50 Diskus] 1 puff IH BID 08/21/14 [History] Furosemide 60 mg PO DAILY 08/21/14 [History] Losartan [Cozaar] 100 mg PO DAILY 08/21/14 [History] Montelukast Sodium [Singulair] 10 mg PO DAILY 08/21/14 [History] Nitroglycerin 0.4 mg SL ASDIRECTED PRN 08/21/14 [History] atorvaSTATin [Lipitor] 50 mg PO DAILY 08/21/14 [History] hydroCHLOROthiazide [Hydrochlorothiazide] 12.5 mg PO DAILY 06/22/17 [History] amLODIPine Besylate [Amlodipine Besylate] 5 mg PO DAILY 01/16/18 [History] Escitalopram [Lexapro] 10 mg PO DAILY 04/21/20 [History] Potassium Chloride [Klor-Con M10] 10 meq PO DAILY 12/25/20 [History] carvediloL [Carvedilol] 6.25 mg PO BIDAC 03/28/21 [History] Past Medical History HEENT History: Reports: Hard of Hearing Cardiovascular History: Reports: Bypass, CAD, High Cholesterol, Hypertension, [place], SOB on Exertion Respiratory History: Reports: Asthma, COPD, SOB Other Respiratory History: emphasema Genitourinary History: Reports: Chronic Renal Insuffiency, Urinary Incontinence Other Genitourinary History: renal artery stenosis [employer] History: Reports: Musculoskeletal History: Reports: Arthritis, Fracture Other Musculoskeletal History: osteopenia Psychiatric History: Reports: Anxiety, Depression - Infectious Disease History Infectious Disease History: Reports: Chicken Pox, Measles, Pertussis (Whooping Cough) - Past Surgical History Head Surgeries/Procedures: Reports: None HEENT Surgical History: Reports: Tonsillectomy Cardiovascular Surgical History: Reports: Carotid Stents, Coronary Artery Bypass, Coronary Artery Stent Respiratory Surgical History: Reports: None GI Surgical History: Reports: None Female Surgical History: Reports: Other (See Below) Other Female Surgeries/Procedures: kidney stents Musculoskeletal Surgical History: Reports: None Dermatological Surgical History: Reports: None Social & Family History - Family History Family Medical History: No Pertinent Family History - Tobacco Use Tobacco Use Status *Q: Never Tobacco User - Caffeine Use Caffeine Use: Reports: Coffee - Recreational Drug Use Recreational Drug Use: No H&P Review of Systems - Review of Systems: Review Of Systems: See Below Pulmonary: Reports: Shortness of Breath Cardiovascular: Reports: Chest Pain (likely due to chest compressions) Gastrointestinal: Reports: Abdominal Pain (likely d/t chest compressions) Genitourinary: Reports: No Symptoms Musculoskeletal: Reports: No Symptoms Skin: Reports: No Symptoms Psychiatric: Reports: No Symptoms Neurological: Reports: No Symptoms Hematologic/Lymphatic: Reports: No Symptoms Immunologic: Reports: No Symptoms Exam - Exam Exam: See Below - Vital Signs Vital Signs: Last Vital Signs Temp 36.2 C 03/28/21 01:31 Pulse 71 03/28/21 01:31 Resp 27 H 03/28/21 01:31 BP 115/52 L 03/28/21 01:31 Pulse Ox 95 03/28/21 01:31 Weight: 64 kg - Exam General: Moderate Distress HEENT: PERRLA, Hearing Intact, Mucosa Moist & Talmo, Nares Patent, Normal Nasal Septum, Posterior Pharynx Clear, Conjunctiva Clear, EOMI, EACs Clear, TMs Clear Neck: Supple, Trachea Midline, 2 Lungs: Decreased Breath Sounds, Rub Cardiovascular: Regular Rate, Regular Rhythm GI/Abdominal Exam: Normal Bowel Sounds, Soft, Non-Tender, No Organomegaly, No Distention, No Abnormal Bruit, No Mass, Pelvis Stable (Female) Exam: Deferred Rectal (Female) Exam: Deferred Back Exam: Normal Inspection, Full Range of Motion, NT Extremities: Normal Inspection, Normal Range of Motion, Non-Tender, Normal Capillary Refill, Pedal Edema (3+) Skin: Warm, Dry, Intact Neurological: Other (unable to assess due to LOC) Psychiatric: Other (unable to assess d/t LOC) - Patient Data Lab Results Last 24 hrs: Laboratory Results - last 24 hr 03/27/21 03/27/21 03/27/21 Range/Units 22:41 22:50 22:50 WBC 18.1 H (4.5-11.0) K/uL RBC 3.94 (3.30-5.50) M/uL Hgb 12.6 (12.0-15.0) g/dL Hct 38.7 (36.0-48.0) % MCV 98 (80-98) fL MCH 32 H (27-31) pg MCHC 33 (32-36) % Plt Count 262 (150-400) K/uL Neut % (Auto) 67.3 H (36-66) % Lymph % (Auto) 19.1 L (24-44) % Screven % (Auto) 4.7 (2-6) % Eos % (Auto) 8.1 H (2-4) % Baso % (Auto) 0.8 (0-1) % PT 10.5 (9.5-12.0) sec INR 0.96 (0.80-1.20) APTT 25.8 L (27.0-36.0) sec Puncture Site ABG pH (7.350-7.450) ABG pCO2 (35.0-42.0) mmHg ABG pO2 (75.0-100.0) mmHg ABG HCO3 (22.0-26.0) mmol/L ABG Total CO2 (21.0-25.0) mmol/L ABG O2 Saturation (95.0-98.0) % ABG O2 Content (15.0-23.0) %vol ABG Base Excess mm/L ABG Hemoglobin (12.0-16.0) g/dL ABG Oxyhemoglobin % ABG Carboxyhemoglobin (0.0-1.6) % ABG Methemoglobin % Jens Test O2 Delivery Device Oxygen Flow Rate L Sodium (140-148) mmol/L Potassium (3.6-5.2) mmol/L Chloride (100-108) mmol/L Carbon Dioxide (21-32) mmol/L Anion Gap (5.0-14.0) mmol/L BUN (7-18) mg/dL Creatinine (0.6-1.0) mg/dL Est Cr Clr Drug Dosing mL/min Estimated GFR (MDRD) (>60) Glucose (74-106) mg/dL POC Glucose 183 H (74-106) mg/dL Lactic Acid (0.4-2.0) mmol/L Calcium (8.5-10.1) mg/dL Magnesium (1.8-2.4) mg/dL Total Bilirubin (0.2-1.0) mg/dL AST (15-37) U/L ALT (12-78) U/L Alkaline Phosphatase (46-116) U/L Ammonia (11-32) umol/L Troponin I (0.000-0.056) ng/mL Total Protein (6.4-8.2) g/dL Albumin (3.4-5.0) g/dL Globulin (2.3-3.5) g/dL Albumin/Globulin Ratio (1.2-2.2) Influenza Type A RNA (NEGATIVE) RSV RNA (INAAT) (NEGATIVE) Influenza Type B RNA (NEGATIVE) SARS-CoV-2 RNA (MIKAELA) (NEGATIVE) 03/27/21 03/27/21 03/27/21 Range/Units 22:50 22:50 22:50 WBC (4.5-11.0) K/uL RBC (3.30-5.50) M/uL Hgb (12.0-15.0) g/dL Hct (36.0-48.0) % MCV (80-98) fL MCH (27-31) pg MCHC (32-36) % Plt Count (150-400) K/uL Neut % (Auto) (36-66) % Lymph % (Auto) (24-44) % Screven % (Auto) (2-6) % Eos % (Auto) (2-4) % Baso % (Auto) (0-1) % PT (9.5-12.0) sec INR (0.80-1.20) APTT (27.0-36.0) sec Puncture Site ABG pH (7.350-7.450) ABG pCO2 (35.0-42.0) mmHg ABG pO2 (75.0-100.0) mmHg ABG HCO3 (22.0-26.0) mmol/L ABG Total CO2 (21.0-25.0) mmol/L ABG O2 Saturation (95.0-98.0) % ABG O2 Content (15.0-23.0) %vol ABG Base Excess mm/L ABG Hemoglobin (12.0-16.0) g/dL ABG Oxyhemoglobin % ABG Carboxyhemoglobin (0.0-1.6) % ABG Methemoglobin % Jens Test O2 Delivery Device Oxygen Flow Rate L Sodium 135 L (140-148) mmol/L Potassium 4.0 (3.6-5.2) mmol/L Chloride 95 L (100-108) mmol/L Carbon Dioxide 31 (21-32) mmol/L Anion Gap 13.0 (5.0-14.0) mmol/L BUN 18 (7-18) mg/dL Creatinine 1.0 (0.6-1.0) mg/dL Est Cr Clr Drug Dosing 28.47 mL/min Estimated GFR (MDRD) 52 L (>60) Glucose 186 H (74-106) mg/dL POC Glucose (74-106) mg/dL Lactic Acid 2.4 H (0.4-2.0) mmol/L Calcium 7.9 L (8.5-10.1) mg/dL Magnesium 2.2 (1.8-2.4) mg/dL Total Bilirubin 0.4 (0.2-1.0) mg/dL AST 52 H D (15-37) U/L ALT 48 D (12-78) U/L Alkaline Phosphatase 90 (46-116) U/L Ammonia 37 H (11-32) umol/L Troponin I < 0.017 (0.000-0.056) ng/mL Total Protein 7.1 (6.4-8.2) g/dL Albumin 3.7 (3.4-5.0) g/dL Globulin 3.4 (2.3-3.5) g/dL Albumin/Globulin Ratio 1.1 L (1.2-2.2) Influenza Type A RNA (NEGATIVE) RSV RNA (INAAT) (NEGATIVE) Influenza Type B RNA (NEGATIVE) SARS-CoV-2 RNA (MIKAELA) (NEGATIVE) 03/27/21 03/28/21 Range/Units 23:52 00:30 WBC (4.5-11.0) K/uL RBC (3.30-5.50) M/uL Hgb (12.0-15.0) g/dL Hct (36.0-48.0) % MCV (80-98) fL MCH (27-31) pg MCHC (32-36) % Plt Count (150-400) K/uL Neut % (Auto) (36-66) % Lymph % (Auto) (24-44) % Screven % (Auto) (2-6) % Eos % (Auto) (2-4) % Baso % (Auto) (0-1) % PT (9.5-12.0) sec INR (0.80-1.20) APTT (27.0-36.0) sec Puncture Site Lt radial ABG pH 7.139 L* (7.350-7.450) ABG pCO2 97.7 H* (35.0-42.0) mmHg ABG pO2 141.0 H (75.0-100.0) mmHg ABG HCO3 31.7 H (22.0-26.0) mmol/L ABG Total CO2 30.4 H (21.0-25.0) mmol/L ABG O2 Saturation 97.7 (95.0-98.0) % ABG O2 Content 17.9 (15.0-23.0) %vol ABG Base Excess -0.3 mm/L ABG Hemoglobin 13.0 (12.0-16.0) g/dL ABG Oxyhemoglobin 96.7 % ABG Carboxyhemoglobin < 0.5 (0.0-1.6) % ABG Methemoglobin 0.6 % Jens Test Pass O2 Delivery Device Nasal cannula Oxygen Flow Rate 5.0 L Sodium (140-148) mmol/L Potassium (3.6-5.2) mmol/L Chloride (100-108) mmol/L Carbon Dioxide (21-32) mmol/L Anion Gap (5.0-14.0) mmol/L BUN (7-18) mg/dL Creatinine (0.6-1.0) mg/dL Est Cr Clr Drug Dosing mL/min Estimated GFR (MDRD) (>60) Glucose (74-106) mg/dL POC Glucose (74-106) mg/dL Lactic Acid (0.4-2.0) mmol/L Calcium (8.5-10.1) mg/dL Magnesium (1.8-2.4) mg/dL Total Bilirubin (0.2-1.0) mg/dL AST (15-37) U/L ALT (12-78) U/L Alkaline Phosphatase (46-116) U/L Ammonia (11-32) umol/L Troponin I (0.000-0.056) ng/mL Total Protein (6.4-8.2) g/dL Albumin (3.4-5.0) g/dL Globulin (2.3-3.5) g/dL Albumin/Globulin Ratio (1.2-2.2) Influenza Type A RNA Negative (NEGATIVE) RSV RNA (INAAT) Negative (NEGATIVE) Influenza Type B RNA Negative (NEGATIVE) SARS-CoV-2 RNA (MIKAELA) Negative (NEGATIVE) Result Diagrams: 03/27/21 22:50 03/27/21 22:50 Sepsis Event Note - Evaluation Sepsis Screening Result: No Definite Risk - Focused Exam Vital Signs: Vital Signs Temp Pulse Resp BP Pulse Ox 03/28/21 01:31 36.2 C 71 27 H 115/52 L 95 03/28/21 01:16 67 23 H 120/45 L 92 L 03/28/21 01:01 73 27 H 114/51 L 03/28/21 00:01 79 30 H 160/65 H 96 03/27/21 23:46 78 29 H 155/66 H 97 03/27/21 23:16 86 32 H 183/70 H 97 03/27/21 23:03 89 36 H 179/74 H 95 03/27/21 22:39 36.6 C 89 34 H 185/74 H 96 03/27/21 22:34 36.6 C 89 34 H 185/74 H 96 - Problem List (1) Acute respiratory failure with hypercapnia SNOMED Code(s): 114658890 ICD Code: J96.02 - ACUTE RESPIRATORY FAILURE WITH HYPERCAPNIA Status: Acute Current Visit: Yes Onset Date: ~03/27/21 Problem Details: Will treat as a mixed picture of CAP, CHF and COPD exacerbations. Will treat with 1 dose of lasix as well as dexamethasone, and albuterol, budesonide and duoneb nebulizer treatments as well as azithromycin and rocephin. Patient will be on bipap for the forseeable future. Patient's family declines ICU admission as patient declines intubation and is DNR/DNI. Patient does wish to have medication treatments. Pain medication and ativan are ordered to treat for agitation or issues arising from chest compressions performed as well as irritation due to bi pap (2) Right lower lobe pneumonia SNOMED Code(s): 523358429 ICD Code: J18.9 - PNEUMONIA, UNSPECIFIED ORGANISM Status: Acute Current Visit: Yes Problem Details: Will treat with azithromycin and rocephin as well as working on CHF and COPD exacerbations. Qualifiers: Pneumonia type: due to unspecified organism Qualified Code(s): J18.9 - Pneumonia, unspecified organism (3) Acute bronchitis SNOMED Code(s): 16180821 ICD Code: J20.9 - ACUTE BRONCHITIS, UNSPECIFIED Status: Acute Current Visit: No Qualifiers: Bronchitis organism: unspecified organism Qualified Code(s): J20.9 - Acute bronchitis, unspecified (4) COPD exacerbation SNOMED Code(s): 887446115 ICD Code: J44.1 - CHRONIC OBSTRUCTIVE PULMONARY DISEASE W (ACUTE) EXACERBATION Status: Acute Current Visit: No Problem Details: Will treat with standard therapy of steroids, nebulizers, and azithromycin with rocephin due to CAP seen on CXR (5) CHF, Congestive heart failure SNOMED Code(s): 52128751 ICD Code: I50.9 - HEART FAILURE, UNSPECIFIED Status: Chronic Current Visit: No Problem Details: Will give lasix to help diurese patient as she does have clinical s/s of chronic fluid overloading and has known CHF. (6) Hypertension SNOMED Code(s): 22725884 ICD Code: I10 - ESSENTIAL (PRIMARY) HYPERTENSION Status: Chronic Current Visit: No Problem Details: Unable to give PO medications while patient is on Bipap, patient may require these as IV medications, but currently BP is stable, so will hold until needed. Qualifiers: Hypertension type: primary hypertension Qualified Code(s): I10 - Essential (primary) hypertension Problem List Initiated/Reviewed/Updated: Yes Orders Last 24hrs: Active Orders 24 hr Category Date Time Status Patient Status Manage Transfer [TRANSFER] Routine ADT 03/28/21 01:54 Active Patient Status [ADT] Routine ADT 03/28/21 01:46 Active BIPAP [RT BiPAP/CPAP] [RC] ASDIRECTED Care 03/27/21 23:51 Active Cardiac Monitoring [RC] .As Directed Care 03/27/21 22:31 Active Cardiac Monitoring [RC] .As Directed Care 03/27/21 22:35 Active Cardiac Monitoring [RC] CONTINUOUS Care 03/28/21 01:48 Active EKG Documentation Completion [RC] ASDIRECTED Care 03/27/21 22:33 Active Neuro Check [RC] Q1H Care 03/27/21 22:32 Active Oxygen Therapy [RC] ASDIRECTED Care 03/27/21 22:31 Active Oxygen Therapy [RC] PRN Care 03/28/21 01:46 Active Peripheral IV Care [RC] . DIRECTED Care 03/27/21 22:33 Active Pulse Oximetry [RC] CONTINUOUS Care 03/27/21 22:32 Active Pulse Oximetry [RC] CONTINUOUS Care 03/28/21 01:48 Active RT Aerosol Therapy [RC] ASDIRECTED Care 03/28/21 01:53 Active RT Aerosol Therapy [RC] ASDIRECTED Care 03/28/21 02:12 Active Up With Assistance [RC] ASDIRECTED Care 03/28/21 01:45 Active VTE/DVT Education [RC] Per Unit Routine Care 03/28/21 01:46 Active Vital Signs [RC] Q4H Care 03/28/21 01:46 Active Nothing per Oral Now Diet [DIET] Diet 03/27/21 Breakfast Active CBC WITH AUTO DIFF [HEME] AM Lab 03/28/21 05:11 Ordered COMPREHENSIVE METABOLIC PN,CMP [CHEM] AM Lab 03/28/21 05:11 Ordered UA W/MICROSCOPIC [URIN] Stat Lab 03/27/21 22:31 Ordered Albuterol [Proventil Neb Soln] Med 03/28/21 02:11 Active 2.5 mg NEB Q4H PRN Albuterol/Ipratropium [DuoNeb 3.0-0.5 MG/3 ML] Med 03/28/21 01:45 Active 3 ml NEB QID PRN Azithromycin [Zithromax] 500 mg Med 03/28/21 02:11 Active Sodium Chloride 0.9% [Normal Saline] 250 ml IV ONETIME LORazepam [Ativan] Med 03/28/21 02:16 Active 1 mg IVPUSH Q4H PRN Morphine Med 03/28/21 02:40 Ordered 2 mg IVPUSH Q4H PRN Nitroglycerin [Nitrostat] Med 03/28/21 02:16 Active 0.4 mg SL Q5M PRN Ondansetron [Zofran] Med 03/28/21 01:45 Active 4 mg IV Q4H PRN Promethazine [Phenergan] 6.25 mg Med 03/28/21 01:45 Active Sodium Chloride 0.9% [Normal Saline] 50 ml IV Q6H Sodium Chloride 0.9% [Saline Flush] Med 03/27/21 22:31 Active 10 ml FLUSH ASDIRECTED PRN dexAMETHasone [Decadron] Med 03/28/21 02:15 Active 4 mg IVPUSH Q12H Isolation [COMM] Stat Oth 03/28/21 00:24 Ordered Isolation [COMM] Stat Oth 03/28/21 00:26 Ordered Peripheral IV Insertion Adult [OM.PC] Urgent Oth 03/27/21 22:31 Ordered Resuscitation Status Stat Resus Stat 03/27/21 22:35 Ordered EKG 12 Lead [EK] Stat Ther 03/27/21 22:31 Ordered Medication Orders Albuterol (Albuterol 0.083% 2.5 Mg/3 Ml Neb Soln) 2.5 mg NEB Q4H PRN PRN Reason: Shortness of Breath Albuterol/Ipratropium (Albuterol/Ipratropium 3.0-0.5 Mg/3 Ml Neb Soln) 3 ml NEB QID PRN PRN Reason: Shortness Of Breath/wheezing Dexamethasone (Dexamethasone 4 Mg/Ml Sdv) 4 mg IVPUSH Q12H JENNIFER Promethazine HCl 6.25 mg/ (Sodium Chloride) 50.25 mls @ 200 mls/hr IV Q6H PRN PRN Reason: Nausea/Vomiting Azithromycin 500 mg/ Sodium (Chloride) 250 mls @ 250 mls/hr IV ONETIME ONE Stop: 03/28/21 03:10 Lorazepam (Lorazepam 2 Mg/Ml Sdv) 1 mg IVPUSH Q4H PRN PRN Reason: Agitation Morphine Sulfate (Morphine 2 Mg/Ml Syringe) 2 mg IVPUSH Q4H PRN PRN Reason: severe pain Nitroglycerin (Nitroglycerin 0.4 Mg Tab.Sl) 0.4 mg SL Q5M PRN PRN Reason: Chest Pain Ondansetron HCl (Ondansetron 4 Mg/2 Ml Sdv) 4 mg IV Q4H PRN PRN Reason: Nausea/Vomiting Sodium Chloride (Sodium Chloride 0.9% 10 Ml Syringe) 10 ml FLUSH ASDIRECTED PRN PRN Reason: Keep Vein Open Last Admin: 03/28/21 00:44 Dose: 10 ml Documented by: THOMAS - Mortality Measure Prognosis:: Poor (patient has high potential to decompensate without Bipap)
[2021-03-28] MEDS: Albuterol/Ipratropium 3.0-0.5 MG/3 ML Neb Soln NEB SCH ×3 (10:11→21:42)
[2021-03-28] MEDS: methylPREDNISolone Sodium Succinate 125 MG/2 ML SDV IVPUSH SCH ×2 (11:52→17:13)
--- NOTE | 2021-03-28 13:25 | PCM.PN ---
- General Info Date of Service: 03/28/21 Subjective Update: No acute events following admission. The patient did require noninvasive ventilation overnight but is off as of this morning. She was on supplemental oxygen for a short while but then this was discontinued. Vital signs have been stable. She is complaining of some discomfort in her sternal area after receiving chest compressions yesterday evening. No abdominal pain or nausea. She does feel a little short of breath but not dramatically different than trev glover. Functional Status: Reports: Pain Controlled - Review of Systems General: Denies: Fever - Patient Data Vitals - Most Recent: Last Vital Signs Temp 37.8 C 03/28/21 11:00 Pulse 69 03/28/21 11:00 Resp 16 03/28/21 11:00 BP 123/45 L 03/28/21 11:00 Pulse Ox 93 L 03/28/21 12:41 Weight - Most Recent: 67.132 kg I&O - Last 24 Hours: Intake & Output 03/27/21 03/28/21 03/28/21 22:59 06:59 14:59 Output Total 650 Balance -650 Lab Results Last 24 Hours: Laboratory Results - last 24 hr 03/27/21 03/27/21 03/27/21 Range/Units 22:41 22:50 22:50 WBC 18.1 H (4.5-11.0) K/uL RBC 3.94 (3.30-5.50) M/uL Hgb 12.6 (12.0-15.0) g/dL Hct 38.7 (36.0-48.0) % MCV 98 (80-98) fL MCH 32 H (27-31) pg MCHC 33 (32-36) % Plt Count 262 (150-400) K/uL Neut % (Auto) 67.3 H (36-66) % Lymph % (Auto) 19.1 L (24-44) % Cross % (Auto) 4.7 (2-6) % Eos % (Auto) 8.1 H (2-4) % Baso % (Auto) 0.8 (0-1) % PT 10.5 (9.5-12.0) sec INR 0.96 (0.80-1.20) APTT 25.8 L (27.0-36.0) sec Puncture Site ABG pH (7.350-7.450) ABG pCO2 (35.0-42.0) mmHg ABG pO2 (75.0-100.0) mmHg ABG HCO3 (22.0-26.0) mmol/L ABG Total CO2 (21.0-25.0) mmol/L ABG O2 Saturation (95.0-98.0) % ABG O2 Content (15.0-23.0) %vol ABG Base Excess mm/L ABG Hemoglobin (12.0-16.0) g/dL ABG Oxyhemoglobin % ABG Carboxyhemoglobin (0.0-1.6) % ABG Methemoglobin % Jens Test O2 Delivery Device Oxygen Flow Rate L Sodium (140-148) mmol/L Potassium (3.6-5.2) mmol/L Chloride (100-108) mmol/L Carbon Dioxide (21-32) mmol/L Anion Gap (5.0-14.0) mmol/L BUN (7-18) mg/dL Creatinine (0.6-1.0) mg/dL Est Cr Clr Drug Dosing mL/min Estimated GFR (MDRD) (>60) Glucose (74-106) mg/dL POC Glucose 183 H (74-106) mg/dL Lactic Acid (0.4-2.0) mmol/L Calcium (8.5-10.1) mg/dL Magnesium (1.8-2.4) mg/dL Total Bilirubin (0.2-1.0) mg/dL AST (15-37) U/L ALT (12-78) U/L Alkaline Phosphatase (46-116) U/L Ammonia (11-32) umol/L Troponin I (0.000-0.056) ng/mL Total Protein (6.4-8.2) g/dL Albumin (3.4-5.0) g/dL Globulin (2.3-3.5) g/dL Albumin/Globulin Ratio (1.2-2.2) Urine Color (YELLOW) Urine Appearance (CLEAR) Urine pH (5.0-8.0) Ur Specific [place] (1.008-1.030) Urine Protein (NEGATIVE) mg/dL Urine Glucose (UA) (NEGATIVE) mg/dL Urine Ketones (NEGATIVE) mg/dL Urine Occult Blood (NEGATIVE) Urine Nitrite (NEGATIVE) Urine Bilirubin (NEGATIVE) Urine Urobilinogen (0.2-1.0) EU/dL Ur Leukocyte Esterase (NEGATIVE) Urine RBC (0-5) Urine WBC (0-5) Ur Epithelial Cells Amorphous Sediment Urine Bacteria Urine Mucus Influenza Type A RNA (NEGATIVE) RSV RNA (INAAT) (NEGATIVE) Influenza Type B RNA (NEGATIVE) SARS-CoV-2 RNA (MIKAELA) (NEGATIVE) 03/27/21 03/27/21 03/27/21 Range/Units 22:50 22:50 22:50 WBC (4.5-11.0) K/uL RBC (3.30-5.50) M/uL Hgb (12.0-15.0) g/dL Hct (36.0-48.0) % MCV (80-98) fL MCH (27-31) pg MCHC (32-36) % Plt Count (150-400) K/uL Neut % (Auto) (36-66) % Lymph % (Auto) (24-44) % Cross % (Auto) (2-6) % Eos % (Auto) (2-4) % Baso % (Auto) (0-1) % PT (9.5-12.0) sec INR (0.80-1.20) APTT (27.0-36.0) sec Puncture Site ABG pH (7.350-7.450) ABG pCO2 (35.0-42.0) mmHg ABG pO2 (75.0-100.0) mmHg ABG HCO3 (22.0-26.0) mmol/L ABG Total CO2 (21.0-25.0) mmol/L ABG O2 Saturation (95.0-98.0) % ABG O2 Content (15.0-23.0) %vol ABG Base Excess mm/L ABG Hemoglobin (12.0-16.0) g/dL ABG Oxyhemoglobin % ABG Carboxyhemoglobin (0.0-1.6) % ABG Methemoglobin % Jens Test O2 Delivery Device Oxygen Flow Rate L Sodium 135 L (140-148) mmol/L Potassium 4.0 (3.6-5.2) mmol/L Chloride 95 L (100-108) mmol/L Carbon Dioxide 31 (21-32) mmol/L Anion Gap 13.0 (5.0-14.0) mmol/L BUN 18 (7-18) mg/dL Creatinine 1.0 (0.6-1.0) mg/dL Est Cr Clr Drug Dosing 28.47 mL/min Estimated GFR (MDRD) 52 L (>60) Glucose 186 H (74-106) mg/dL POC Glucose (74-106) mg/dL Lactic Acid 2.4 H (0.4-2.0) mmol/L Calcium 7.9 L (8.5-10.1) mg/dL Magnesium 2.2 (1.8-2.4) mg/dL Total Bilirubin 0.4 (0.2-1.0) mg/dL AST 52 H D (15-37) U/L ALT 48 D (12-78) U/L Alkaline Phosphatase 90 (46-116) U/L Ammonia 37 H (11-32) umol/L Troponin I < 0.017 (0.000-0.056) ng/mL Total Protein 7.1 (6.4-8.2) g/dL Albumin 3.7 (3.4-5.0) g/dL Globulin 3.4 (2.3-3.5) g/dL Albumin/Globulin Ratio 1.1 L (1.2-2.2) Urine Color (YELLOW) Urine Appearance (CLEAR) Urine pH (5.0-8.0) Ur Specific [place] (1.008-1.030) Urine Protein (NEGATIVE) mg/dL Urine Glucose (UA) (NEGATIVE) mg/dL Urine Ketones (NEGATIVE) mg/dL Urine Occult Blood (NEGATIVE) Urine Nitrite (NEGATIVE) Urine Bilirubin (NEGATIVE) Urine Urobilinogen (0.2-1.0) EU/dL Ur Leukocyte Esterase (NEGATIVE) Urine RBC (0-5) Urine WBC (0-5) Ur Epithelial Cells Amorphous Sediment Urine Bacteria Urine Mucus Influenza Type A RNA (NEGATIVE) RSV RNA (INAAT) (NEGATIVE) Influenza Type B RNA (NEGATIVE) SARS-CoV-2 RNA (MIKAELA) (NEGATIVE) 03/27/21 03/28/21 03/28/21 Range/Units 23:52 00:30 02:41 WBC (4.5-11.0) K/uL RBC (3.30-5.50) M/uL Hgb (12.0-15.0) g/dL Hct (36.0-48.0) % MCV (80-98) fL MCH (27-31) pg MCHC (32-36) % Plt Count (150-400) K/uL Neut % (Auto) (36-66) % Lymph % (Auto) (24-44) % Cross % (Auto) (2-6) % Eos % (Auto) (2-4) % Baso % (Auto) (0-1) % PT (9.5-12.0) sec INR (0.80-1.20) APTT (27.0-36.0) sec Puncture Site Lt radial ABG pH 7.139 L* (7.350-7.450) ABG pCO2 97.7 H* (35.0-42.0) mmHg ABG pO2 141.0 H (75.0-100.0) mmHg ABG HCO3 31.7 H (22.0-26.0) mmol/L ABG Total CO2 30.4 H (21.0-25.0) mmol/L ABG O2 Saturation 97.7 (95.0-98.0) % ABG O2 Content 17.9 (15.0-23.0) %vol ABG Base Excess -0.3 mm/L ABG Hemoglobin 13.0 (12.0-16.0) g/dL ABG Oxyhemoglobin 96.7 % ABG Carboxyhemoglobin < 0.5 (0.0-1.6) % ABG Methemoglobin 0.6 % Jens Test Pass O2 Delivery Device Nasal cannula Oxygen Flow Rate 5.0 L Sodium (140-148) mmol/L Potassium (3.6-5.2) mmol/L Chloride (100-108) mmol/L Carbon Dioxide (21-32) mmol/L Anion Gap (5.0-14.0) mmol/L BUN (7-18) mg/dL Creatinine (0.6-1.0) mg/dL Est Cr Clr Drug Dosing mL/min Estimated GFR (MDRD) (>60) Glucose (74-106) mg/dL POC Glucose (74-106) mg/dL Lactic Acid (0.4-2.0) mmol/L Calcium (8.5-10.1) mg/dL Magnesium (1.8-2.4) mg/dL Total Bilirubin (0.2-1.0) mg/dL AST (15-37) U/L ALT (12-78) U/L Alkaline Phosphatase (46-116) U/L Ammonia (11-32) umol/L Troponin I (0.000-0.056) ng/mL Total Protein (6.4-8.2) g/dL Albumin (3.4-5.0) g/dL Globulin (2.3-3.5) g/dL Albumin/Globulin Ratio (1.2-2.2) Urine Color Yellow (YELLOW) Urine Appearance Slightly cloudy A (CLEAR) Urine pH 5.5 (5.0-8.0) Ur Specific [place] 1.020 (1.008-1.030) Urine Protein 100 H (NEGATIVE) mg/dL Urine Glucose (UA) Negative (NEGATIVE) mg/dL Urine Ketones Negative (NEGATIVE) mg/dL Urine Occult Blood Trace-lysed H (NEGATIVE) Urine Nitrite Negative (NEGATIVE) Urine Bilirubin Negative (NEGATIVE) Urine Urobilinogen 0.2 (0.2-1.0) EU/dL Ur Leukocyte Esterase Moderate H (NEGATIVE) Urine RBC 0-5 (0-5) Urine WBC 10-20 H (0-5) Ur Epithelial Cells Rare Amorphous Sediment Not seen Urine Bacteria Rare Urine Mucus Not seen Influenza Type A RNA Negative (NEGATIVE) RSV RNA (INAAT) Negative (NEGATIVE) Influenza Type B RNA Negative (NEGATIVE) SARS-CoV-2 RNA (MIKAELA) Negative (NEGATIVE) 03/28/21 03/28/21 Range/Units 05:25 05:25 WBC 21.7 H (4.5-11.0) K/uL RBC 3.79 (3.30-5.50) M/uL Hgb 12.3 (12.0-15.0) g/dL Hct 37.7 (36.0-48.0) % MCV 100 H (80-98) fL MCH 33 H (27-31) pg MCHC 33 (32-36) % Plt Count 197 (150-400) K/uL Neut % (Auto) 91.1 H (36-66) % Lymph % (Auto) 3.2 L (24-44) % Cross % (Auto) 5.6 (2-6) % Eos % (Auto) 0.1 L (2-4) % Baso % (Auto) 0.0 (0-1) % PT (9.5-12.0) sec INR (0.80-1.20) APTT (27.0-36.0) sec Puncture Site ABG pH (7.350-7.450) ABG pCO2 (35.0-42.0) mmHg ABG pO2 (75.0-100.0) mmHg ABG HCO3 (22.0-26.0) mmol/L ABG Total CO2 (21.0-25.0) mmol/L ABG O2 Saturation (95.0-98.0) % ABG O2 Content (15.0-23.0) %vol ABG Base Excess mm/L ABG Hemoglobin (12.0-16.0) g/dL ABG Oxyhemoglobin % ABG Carboxyhemoglobin (0.0-1.6) % ABG Methemoglobin % Jens Test O2 Delivery Device Oxygen Flow Rate L Sodium 137 L (140-148) mmol/L Potassium 3.7 (3.6-5.2) mmol/L Chloride 98 L (100-108) mmol/L Carbon Dioxide 30 (21-32) mmol/L Anion Gap 12.7 (5.0-14.0) mmol/L BUN 22 H (7-18) mg/dL Creatinine 1.0 (0.6-1.0) mg/dL Est Cr Clr Drug Dosing 28.47 mL/min Estimated GFR (MDRD) 52 L (>60) Glucose 152 H (74-106) mg/dL POC Glucose (74-106) mg/dL Lactic Acid (0.4-2.0) mmol/L Calcium 8.0 L (8.5-10.1) mg/dL Magnesium (1.8-2.4) mg/dL Total Bilirubin 0.6 (0.2-1.0) mg/dL AST 40 H (15-37) U/L ALT 39 (12-78) U/L Alkaline Phosphatase 143 H (46-116) U/L Ammonia (11-32) umol/L Troponin I (0.000-0.056) ng/mL Total Protein 6.3 L (6.4-8.2) g/dL Albumin 3.3 L (3.4-5.0) g/dL Globulin 3.0 (2.3-3.5) g/dL Albumin/Globulin Ratio 1.1 L (1.2-2.2) Urine Color (YELLOW) Urine Appearance (CLEAR) Urine pH (5.0-8.0) Ur Specific [place] (1.008-1.030) Urine Protein (NEGATIVE) mg/dL Urine Glucose (UA) (NEGATIVE) mg/dL Urine Ketones (NEGATIVE) mg/dL Urine Occult Blood (NEGATIVE) Urine Nitrite (NEGATIVE) Urine Bilirubin (NEGATIVE) Urine Urobilinogen (0.2-1.0) EU/dL Ur Leukocyte Esterase (NEGATIVE) Urine RBC (0-5) Urine WBC (0-5) Ur Epithelial Cells Amorphous Sediment Urine Bacteria Urine Mucus Influenza Type A RNA (NEGATIVE) RSV RNA (INAAT) (NEGATIVE) Influenza Type B RNA (NEGATIVE) SARS-CoV-2 RNA (MIKAELA) (NEGATIVE) Med Orders - Current: Current Medications Acetaminophen (Acetaminophen 325 Mg Tab) 650 mg PO Q4H PRN PRN Reason: Pain/Fever Albuterol (Albuterol 0.083% 2.5 Mg/3 Ml Neb Soln) 2.5 mg NEB Q4H PRN PRN Reason: Shortness of Breath Albuterol/Ipratropium (Albuterol/Ipratropium 3.0-0.5 Mg/3 Ml Neb Soln) 3 ml NEB QIDRT [facility] Last Admin: 03/28/21 10:11 Dose: 3 ml Documented by: Amlodipine Besylate (Amlodipine 5 Mg Tab) 5 mg PO DAILY [facility] Aspirin (Aspirin 81 Mg Tab.Ec) 81 mg PO DAILY [facility] Azithromycin (Azithromycin 250 Mg Tab) 500 mg PO BEDTIME [facility] Promethazine HCl 6.25 mg/ (Sodium Chloride) 50.25 mls @ 200 mls/hr IV Q6H PRN PRN Reason: Nausea/Vomiting Ceftriaxone Sodium 1 gm/ (Sodium Chloride) 50 mls @ 100 mls/hr IV Q24H [facility] Lorazepam (Lorazepam 2 Mg/Ml Sdv) 1 mg IVPUSH Q4H PRN PRN Reason: Agitation Methylprednisolone Sodium Succinate (Methylprednisolone Sodium Succinate 125 Mg/2 Ml Sdv) 62.5 mg IVPUSH Q8H [facility] Stop: 03/29/21 04:00 Last Admin: 03/28/21 11:52 Dose: 62.5 mg Documented by: Morphine Sulfate (Morphine 2 Mg/Ml Syringe) 2 mg IVPUSH Q4H PRN PRN Reason: severe pain Last Admin: 03/28/21 03:02 Dose: 2 mg Documented by: Non-Formulary Medication (Atorvastatin [Lipitor]) 50 mg PO DAILY [facility] Non-Formulary Medication (Carvedilol [Carvedilol]) 6.25 mg PO BIDAC [facility] Ondansetron HCl (Ondansetron 4 Mg/2 Ml Sdv) 4 mg IV Q4H PRN PRN Reason: Nausea/Vomiting Prednisone (Prednisone 20 Mg Tab) 40 mg PO WITHBREAKFAST [facility] Sodium Chloride (Sodium Chloride 0.9% 10 Ml Syringe) 10 ml FLUSH ASDIRECTED PRN PRN Reason: Keep Vein Open Last Admin: 03/28/21 00:44 Dose: 10 ml Documented by: Discontinued Medications Albuterol/Ipratropium (Albuterol/Ipratropium 3.0-0.5 Mg/3 Ml Neb Soln) 3 ml NEB QID PRN PRN Reason: Shortness Of Breath/wheezing Dexamethasone (Dexamethasone 4 Mg/Ml Sdv) 4 mg IVPUSH Q12H [facility] Last Admin: 03/28/21 03:45 Dose: 4 mg Documented by: Furosemide (Furosemide 40 Mg/4 Ml Vial) 40 mg IVPUSH ONETIME ONE Stop: 03/28/21 02:16 Last Admin: 03/28/21 03:50 Dose: 40 mg Documented by: Ceftriaxone Sodium 1 gm/ (Sodium Chloride) 50 mls @ 100 mls/hr IV ONETIME ONE Stop: 03/28/21 00:58 Last Admin: 03/28/21 00:41 Dose: 100 mls/hr Documented by: Azithromycin 500 mg/ Sodium (Chloride) 250 mls @ 250 mls/hr IV ONETIME ONE Stop: 03/28/21 03:10 Last Admin: 03/28/21 03:57 Dose: 250 mls/hr Documented by: Ketorolac Tromethamine (Ketorolac 30 Mg/Ml Sdv) 30 mg IM Q6H PRN PRN Reason: Pain (moderate 4-6) Nitroglycerin (Nitroglycerin 0.4 Mg Tab.Sl) 0.4 mg SL Q5M PRN PRN Reason: Chest Pain - Exam Quality Assessment: No: Supplemental Oxygen Urinary Catheter Total Time: 0Days 6Hours General: Alert, Oriented, Cooperative, No Acute Distress Lungs: Normal Respiratory Effort, Crackles (Few right midlung) Cardiovascular: Regular Rate, Regular Rhythm GI/Abdominal Exam: Soft, No Distention Extremities: Pedal Edema (Swelling of both lower extremities around the ankle). No: Increased Warmth Skin: Warm, Dry Psy/Mental Status: Alert, Normal Affect - Patient Data Lab Results Last 24 hrs: Laboratory Results - last 24 hr 03/27/21 03/27/21 03/27/21 Range/Units 22:41 22:50 22:50 WBC 18.1 H (4.5-11.0) K/uL RBC 3.94 (3.30-5.50) M/uL Hgb 12.6 (12.0-15.0) g/dL Hct 38.7 (36.0-48.0) % MCV 98 (80-98) fL MCH 32 H (27-31) pg MCHC 33 (32-36) % Plt Count 262 (150-400) K/uL Neut % (Auto) 67.3 H (36-66) % Lymph % (Auto) 19.1 L (24-44) % Cross % (Auto) 4.7 (2-6) % Eos % (Auto) 8.1 H (2-4) % Baso % (Auto) 0.8 (0-1) % PT 10.5 (9.5-12.0) sec INR 0.96 (0.80-1.20) APTT 25.8 L (27.0-36.0) sec Puncture Site ABG pH (7.350-7.450) ABG pCO2 (35.0-42.0) mmHg ABG pO2 (75.0-100.0) mmHg ABG HCO3 (22.0-26.0) mmol/L ABG Total CO2 (21.0-25.0) mmol/L ABG O2 Saturation (95.0-98.0) % ABG O2 Content (15.0-23.0) %vol ABG Base Excess mm/L ABG Hemoglobin (12.0-16.0) g/dL ABG Oxyhemoglobin % ABG Carboxyhemoglobin (0.0-1.6) % ABG Methemoglobin % Jens Test O2 Delivery Device Oxygen Flow Rate L Sodium (140-148) mmol/L Potassium (3.6-5.2) mmol/L Chloride (100-108) mmol/L Carbon Dioxide (21-32) mmol/L Anion Gap (5.0-14.0) mmol/L BUN (7-18) mg/dL Creatinine (0.6-1.0) mg/dL Est Cr Clr Drug Dosing mL/min Estimated GFR (MDRD) (>60) Glucose (74-106) mg/dL POC Glucose 183 H (74-106) mg/dL Lactic Acid (0.4-2.0) mmol/L Calcium (8.5-10.1) mg/dL Magnesium (1.8-2.4) mg/dL Total Bilirubin (0.2-1.0) mg/dL AST (15-37) U/L ALT (12-78) U/L Alkaline Phosphatase (46-116) U/L Ammonia (11-32) umol/L Troponin I (0.000-0.056) ng/mL Total Protein (6.4-8.2) g/dL Albumin (3.4-5.0) g/dL Globulin (2.3-3.5) g/dL Albumin/Globulin Ratio (1.2-2.2) Urine Color (YELLOW) Urine Appearance (CLEAR) Urine pH (5.0-8.0) Ur Specific [place] (1.008-1.030) Urine Protein (NEGATIVE) mg/dL Urine Glucose (UA) (NEGATIVE) mg/dL Urine Ketones (NEGATIVE) mg/dL Urine Occult Blood (NEGATIVE) Urine Nitrite (NEGATIVE) Urine Bilirubin (NEGATIVE) Urine Urobilinogen (0.2-1.0) EU/dL Ur Leukocyte Esterase (NEGATIVE) Urine RBC (0-5) Urine WBC (0-5) Ur Epithelial Cells Amorphous Sediment Urine Bacteria Urine Mucus Influenza Type A RNA (NEGATIVE) RSV RNA (INAAT) (NEGATIVE) Influenza Type B RNA (NEGATIVE) SARS-CoV-2 RNA (MIKAELA) (NEGATIVE) 03/27/21 03/27/21 03/27/21 Range/Units 22:50 22:50 22:50 WBC (4.5-11.0) K/uL RBC (3.30-5.50) M/uL Hgb (12.0-15.0) g/dL Hct (36.0-48.0) % MCV (80-98) fL MCH (27-31) pg MCHC (32-36) % Plt Count (150-400) K/uL Neut % (Auto) (36-66) % Lymph % (Auto) (24-44) % Cross % (Auto) (2-6) % Eos % (Auto) (2-4) % Baso % (Auto) (0-1) % PT (9.5-12.0) sec INR (0.80-1.20) APTT (27.0-36.0) sec Puncture Site ABG pH (7.350-7.450) ABG pCO2 (35.0-42.0) mmHg ABG pO2 (75.0-100.0) mmHg ABG HCO3 (22.0-26.0) mmol/L ABG Total CO2 (21.0-25.0) mmol/L ABG O2 Saturation (95.0-98.0) % ABG O2 Content (15.0-23.0) %vol ABG Base Excess mm/L ABG Hemoglobin (12.0-16.0) g/dL ABG Oxyhemoglobin % ABG Carboxyhemoglobin (0.0-1.6) % ABG Methemoglobin % Jens Test O2 Delivery Device Oxygen Flow Rate L Sodium 135 L (140-148) mmol/L Potassium 4.0 (3.6-5.2) mmol/L Chloride 95 L (100-108) mmol/L Carbon Dioxide 31 (21-32) mmol/L Anion Gap 13.0 (5.0-14.0) mmol/L BUN 18 (7-18) mg/dL Creatinine 1.0 (0.6-1.0) mg/dL Est Cr Clr Drug Dosing 28.47 mL/min Estimated GFR (MDRD) 52 L (>60) Glucose 186 H (74-106) mg/dL POC Glucose (74-106) mg/dL Lactic Acid 2.4 H (0.4-2.0) mmol/L Calcium 7.9 L (8.5-10.1) mg/dL Magnesium 2.2 (1.8-2.4) mg/dL Total Bilirubin 0.4 (0.2-1.0) mg/dL AST 52 H D (15-37) U/L ALT 48 D (12-78) U/L Alkaline Phosphatase 90 (46-116) U/L Ammonia 37 H (11-32) umol/L Troponin I < 0.017 (0.000-0.056) ng/mL Total Protein 7.1 (6.4-8.2) g/dL Albumin 3.7 (3.4-5.0) g/dL Globulin 3.4 (2.3-3.5) g/dL Albumin/Globulin Ratio 1.1 L (1.2-2.2) Urine Color (YELLOW) Urine Appearance (CLEAR) Urine pH (5.0-8.0) Ur Specific [place] (1.008-1.030) Urine Protein (NEGATIVE) mg/dL Urine Glucose (UA) (NEGATIVE) mg/dL Urine Ketones (NEGATIVE) mg/dL Urine Occult Blood (NEGATIVE) Urine Nitrite (NEGATIVE) Urine Bilirubin (NEGATIVE) Urine Urobilinogen (0.2-1.0) EU/dL Ur Leukocyte Esterase (NEGATIVE) Urine RBC (0-5) Urine WBC (0-5) Ur Epithelial Cells Amorphous Sediment Urine Bacteria Urine Mucus Influenza Type A RNA (NEGATIVE) RSV RNA (INAAT) (NEGATIVE) Influenza Type B RNA (NEGATIVE) SARS-CoV-2 RNA (MIKAELA) (NEGATIVE) 03/27/21 03/28/21 03/28/21 Range/Units 23:52 00:30 02:41 WBC (4.5-11.0) K/uL RBC (3.30-5.50) M/uL Hgb (12.0-15.0) g/dL Hct (36.0-48.0) % MCV (80-98) fL MCH (27-31) pg MCHC (32-36) % Plt Count (150-400) K/uL Neut % (Auto) (36-66) % Lymph % (Auto) (24-44) % Cross % (Auto) (2-6) % Eos % (Auto) (2-4) % Baso % (Auto) (0-1) % PT (9.5-12.0) sec INR (0.80-1.20) APTT (27.0-36.0) sec Puncture Site Lt radial ABG pH 7.139 L* (7.350-7.450) ABG pCO2 97.7 H* (35.0-42.0) mmHg ABG pO2 141.0 H (75.0-100.0) mmHg ABG HCO3 31.7 H (22.0-26.0) mmol/L ABG Total CO2 30.4 H (21.0-25.0) mmol/L ABG O2 Saturation 97.7 (95.0-98.0) % ABG O2 Content 17.9 (15.0-23.0) %vol ABG Base Excess -0.3 mm/L ABG Hemoglobin 13.0 (12.0-16.0) g/dL ABG Oxyhemoglobin 96.7 % ABG Carboxyhemoglobin < 0.5 (0.0-1.6) % ABG Methemoglobin 0.6 % Jens Test Pass O2 Delivery Device Nasal cannula Oxygen Flow Rate 5.0 L Sodium (140-148) mmol/L Potassium (3.6-5.2) mmol/L Chloride (100-108) mmol/L Carbon Dioxide (21-32) mmol/L Anion Gap (5.0-14.0) mmol/L BUN (7-18) mg/dL Creatinine (0.6-1.0) mg/dL Est Cr Clr Drug Dosing mL/min Estimated GFR (MDRD) (>60) Glucose (74-106) mg/dL POC Glucose (74-106) mg/dL Lactic Acid (0.4-2.0) mmol/L Calcium (8.5-10.1) mg/dL Magnesium (1.8-2.4) mg/dL Total Bilirubin (0.2-1.0) mg/dL AST (15-37) U/L ALT (12-78) U/L Alkaline Phosphatase (46-116) U/L Ammonia (11-32) umol/L Troponin I (0.000-0.056) ng/mL Total Protein (6.4-8.2) g/dL Albumin (3.4-5.0) g/dL Globulin (2.3-3.5) g/dL Albumin/Globulin Ratio (1.2-2.2) Urine Color Yellow (YELLOW) Urine Appearance Slightly cloudy A (CLEAR) Urine pH 5.5 (5.0-8.0) Ur Specific [place] 1.020 (1.008-1.030) Urine Protein 100 H (NEGATIVE) mg/dL Urine Glucose (UA) Negative (NEGATIVE) mg/dL Urine Ketones Negative (NEGATIVE) mg/dL Urine Occult Blood Trace-lysed H (NEGATIVE) Urine Nitrite Negative (NEGATIVE) Urine Bilirubin Negative (NEGATIVE) Urine Urobilinogen 0.2 (0.2-1.0) EU/dL Ur Leukocyte Esterase Moderate H (NEGATIVE) Urine RBC 0-5 (0-5) Urine WBC 10-20 H (0-5) Ur Epithelial Cells Rare Amorphous Sediment Not seen Urine Bacteria Rare Urine Mucus Not seen Influenza Type A RNA Negative (NEGATIVE) RSV RNA (INAAT) Negative (NEGATIVE) Influenza Type B RNA Negative (NEGATIVE) SARS-CoV-2 RNA (MIKAELA) Negative (NEGATIVE) 03/28/21 03/28/21 Range/Units 05:25 05:25 WBC 21.7 H (4.5-11.0) K/uL RBC 3.79 (3.30-5.50) M/uL Hgb 12.3 (12.0-15.0) g/dL Hct 37.7 (36.0-48.0) % MCV 100 H (80-98) fL MCH 33 H (27-31) pg MCHC 33 (32-36) % Plt Count 197 (150-400) K/uL Neut % (Auto) 91.1 H (36-66) % Lymph % (Auto) 3.2 L (24-44) % Cross % (Auto) 5.6 (2-6) % Eos % (Auto) 0.1 L (2-4) % Baso % (Auto) 0.0 (0-1) % PT (9.5-12.0) sec INR (0.80-1.20) APTT (27.0-36.0) sec Puncture Site ABG pH (7.350-7.450) ABG pCO2 (35.0-42.0) mmHg ABG pO2 (75.0-100.0) mmHg ABG HCO3 (22.0-26.0) mmol/L ABG Total CO2 (21.0-25.0) mmol/L ABG O2 Saturation (95.0-98.0) % ABG O2 Content (15.0-23.0) %vol ABG Base Excess mm/L ABG Hemoglobin (12.0-16.0) g/dL ABG Oxyhemoglobin % ABG Carboxyhemoglobin (0.0-1.6) % ABG Methemoglobin % Jens Test O2 Delivery Device Oxygen Flow Rate L Sodium 137 L (140-148) mmol/L Potassium 3.7 (3.6-5.2) mmol/L Chloride 98 L (100-108) mmol/L Carbon Dioxide 30 (21-32) mmol/L Anion Gap 12.7 (5.0-14.0) mmol/L BUN 22 H (7-18) mg/dL Creatinine 1.0 (0.6-1.0) mg/dL Est Cr Clr Drug Dosing 28.47 mL/min Estimated GFR (MDRD) 52 L (>60) Glucose 152 H (74-106) mg/dL POC Glucose (74-106) mg/dL Lactic Acid (0.4-2.0) mmol/L Calcium 8.0 L (8.5-10.1) mg/dL Magnesium (1.8-2.4) mg/dL Total Bilirubin 0.6 (0.2-1.0) mg/dL AST 40 H (15-37) U/L ALT 39 (12-78) U/L Alkaline Phosphatase 143 H (46-116) U/L Ammonia (11-32) umol/L Troponin I (0.000-0.056) ng/mL Total Protein 6.3 L (6.4-8.2) g/dL Albumin 3.3 L (3.4-5.0) g/dL Globulin 3.0 (2.3-3.5) g/dL Albumin/Globulin Ratio 1.1 L (1.2-2.2) Urine Color (YELLOW) Urine Appearance (CLEAR) Urine pH (5.0-8.0) Ur Specific [place] (1.008-1.030) Urine Protein (NEGATIVE) mg/dL Urine Glucose (UA) (NEGATIVE) mg/dL Urine Ketones (NEGATIVE) mg/dL Urine Occult Blood (NEGATIVE) Urine Nitrite (NEGATIVE) Urine Bilirubin (NEGATIVE) Urine Urobilinogen (0.2-1.0) EU/dL Ur Leukocyte Esterase (NEGATIVE) Urine RBC (0-5) Urine WBC (0-5) Ur Epithelial Cells Amorphous Sediment Urine Bacteria Urine Mucus Influenza Type A RNA (NEGATIVE) RSV RNA (INAAT) (NEGATIVE) Influenza Type B RNA (NEGATIVE) SARS-CoV-2 RNA (MIKAELA) (NEGATIVE) Result Diagrams: 03/28/21 05:25 03/28/21 05:25 Sepsis Event Note - Evaluation Sepsis Screening Result: No Definite Risk - Focused Exam Vital Signs: Vital Signs Temp Pulse Resp BP Pulse Ox 03/28/21 12:41 93 L 03/28/21 11:00 37.8 C 69 16 123/45 L 91 L 03/28/21 10:12 76 03/28/21 07:16 93 L 03/28/21 07:00 36.5 C 69 20 140/51 L 94 L 03/28/21 04:01 94 L 03/28/21 03:58 63 24 H 98/40 L 91 L 03/28/21 03:04 36.1 C 64 22 H 93/38 L 92 L 03/28/21 01:31 36.2 C 71 27 H 115/52 L 95 - Problem List Review Problem List Initiated/Reviewed/Updated: Yes - My Orders Last 24 Hours: My Active Orders 03/28/21 10:00 methylPREDNISolone Sod Succ [Solu-MEDROL] 62.5 mg IVPUSH Q8H 03/28/21 10:01 Resuscitation Status Routine 03/28/21 11:00 Albuterol/Ipratropium [DuoNeb 3.0-0.5 MG/3 ML] 3 ml NEB QIDRT 03/28/21 Lunch Regular Diet [DIET] 03/28/21 13:17 Acetaminophen [TylenoL] 650 mg PO Q4H PRN 03/28/21 13:18 Antiembolic Devices [RC] .Routine SCD [Sequential Compression Device] [OM.PC] Routine 03/28/21 13:21 DC Anderson Catheter [Urinary Catheter Removal] [RC] PER UNIT ROUTINE 03/28/21 16:30 carvediloL [Carvedilol] 6.25 mg PO BIDAC 03/28/21 21:00 Azithromycin [Zithromax] 500 mg PO BEDTIME Fluticasone Propion/Salmeterol [Advair 250-50 Diskus] 1 puff IH BID cefTRIAXone [Rocephin] 1 gm Sodium Chloride 0.9% [Normal Saline] 50 ml IV Q24H 03/29/21 05:00 BASIC METABOLIC PANEL,BMP [CHEM] Timed CBC W/O DIFF,HEMOGRAM [HEME] Timed (1) 03/29/21 08:00 predniSONE 40 mg PO WITHBREAKFAST 03/29/21 09:00 Aspirin [Halfprin] 81 mg PO DAILY Escitalopram [Lexapro] 10 mg PO DAILY Furosemide [Lasix] 60 mg PO DAILY Losartan [Cozaar] 100 mg PO DAILY Montelukast [Singulair] 10 mg PO DAILY Umeclidinium [place] [Incruse Ellipta*] 1 inhalation PO DAILY amLODIPine [Norvasc] 5 mg PO DAILY atorvaSTATin [Lipitor] 50 mg PO DAILY hydroCHLOROthiazide 12.5 mg PO DAILY - Plan Plan:: ASSESSMENT AND PLAN - Probable right lower lobe pneumonia-complicated by acute respiratory failure with both hypoxia and hypercapnia. Possible respiratory arrest and she did have CPR prior to arriving at the hospital. Needed noninvasive ventilation overnight but off this morning. Seems to be quite improved compared to how she sounded when she arrived last night. -Antibiotic coverage with ceftriaxone and azithromycin -IV steroids today, transition to prednisone tomorrow -Supplement oxygen as needed -Symptomatic management of cough COPD with acute exacerbation-suspect pulmonary infection with possible contribution from environmental factors leading to bronchospasm and CO2 rete ntion that led to suspected respiratory difficulties last night. Wheezing improved today. -Management as above -Continue home medications Coronary artery disease-she does have chest pain but this is probably from the compressions. Troponin normal. Vital signs stable. -Continue medical management Maintenance issues - -DVT prophylaxis-mechanical -GI prophylaxis-not indicated -Nutrition- regular -Anderson catheter-placed in the emergency room last night, will be removed today Disposition -I anticipate discharge home after the hospital stay Chente Powell M.D.
[2021-03-28] MEDS: Acetaminophen 325 MG Tab PO PRN ×2 (15:18→19:55)
[2021-03-28] MEDS: Carvedilol 3.125 MG Tab PO SCH (15:32)
[2021-03-28] MEDS ORDERED: Non-Formulary Medication 1 Each (Carvedilol [Carvedilol] 6.25 MG Tablet) PO SCH (16:30)
[2021-03-28] MEDS ORDERED: Non-Formulary Medication 1 Each (Fluticasone Propion/Salmeterol [Advair 250-50 Diskus] 1 E IH SCH (21:00)
[2021-03-28] MEDS: cefTRIAXone 1 GM in Sodium Chloride 0.9% 50 ML IV SCH (21:48)
[2021-03-28] MEDS: Azithromycin 250 MG Tab PO SCH (21:53)
[2021-03-28] MEDS: Formoterol/Mometasone 200-5 MCG 8.8 GM Inhaler IH SCH (21:55)
[2021-03-29] MEDS: methylPREDNISolone Sodium Succinate 125 MG/2 ML SDV IVPUSH SCH (02:55)
[2021-03-29] MEDS: Acetaminophen 325 MG Tab PO PRN ×2 (03:07→20:28)
[2021-03-29] MEDS ORDERED: Potassium Chloride 20 MEQ in Premix Bag 1 BAG IV ONE (06:14)
[2021-03-29] MEDS ORDERED: Potassium Chloride 20 MEQ Tab.ER PO ONE (06:14)
[2021-03-29] MEDS: Albuterol/Ipratropium 3.0-0.5 MG/3 ML Neb Soln NEB SCH ×4 (07:20→20:27)
[2021-03-29] MEDS: Formoterol/Mometasone 200-5 MCG 8.8 GM Inhaler IH SCH ×2 (07:20→20:31)
[2021-03-29] MEDS: Tiotropium Bromide 4 GM Inhalation Spray (2.5mcg/1 dose; 10 doses) INH SCH (07:21)
[2021-03-29] MEDS: Carvedilol 3.125 MG Tab PO SCH ×2 (07:31→15:35)
[2021-03-29] MEDS ORDERED: Potassium Chloride 20 MEQ, Lidocaine 1% 2 ML in Sodium Chloride 0.9% 100 ML IV ONE (08:00)
[2021-03-29] MEDS: Escitalopram 10 MG Tab PO SCH (08:02)
[2021-03-29] MEDS: amLODIPine 5 MG Tab PO SCH (08:02)
[2021-03-29] MEDS: predniSONE 20 MG Tab PO SCH (08:02)
[2021-03-29] MEDS: Hydrochlorothiazide 12.5 MG Cap PO SCH (08:02)
[2021-03-29] MEDS: atorvaSTATin 20 MG Tab PO SCH (08:04)
[2021-03-29] MEDS: Losartan 50 MG Tab PO SCH (08:05)
[2021-03-29] MEDS ORDERED: Non-Formulary Medication 1 Each (Atorvastatin [Lipitor] 40 MG Tab) PO SCH (09:00)
[2021-03-29] MEDS ORDERED: Non-Formulary Medication 1 Each (Losartan [Cozaar] 100 MG Tablet) PO SCH (09:00)
[2021-03-29] MEDS ORDERED: Non-Formulary Medication 1 Each (Umeclidinium Bromide [Incruse Ellipta*] 62.5 MCG Blst.W.D PO SCH (09:00)
[2021-03-29] MEDS ORDERED: Furosemide 40 MG Tab PO SCH (09:00)
[2021-03-29] MEDS: Aspirin 81 MG Tab.EC PO SCH (10:19)
--- NOTE | 2021-03-29 13:28 | PCM.PN ---
- General Info Date of Service: 03/29/21 Subjective Update: There were no acute events overnight. Chest pain seems to be slowly settling down. She has a frontal headache today that is similar to headaches she gets at home though they occur on an infrequent basis. No fevers overnight but did have one low-grade temperature elevation. Shortness of breath subjectively is better today. Cough is relatively minimal. She has not required supplemental oxygen this morning. Functional Status: Reports: Pain Controlled, Tolerating Diet - Review of Systems General: Denies: Fever Cardiovascular: Reports: Chest Pain Neurological: Reports: Headache - Patient Data Vitals - Most Recent: Last Vital Signs Temp 37.2 C 03/29/21 11:23 Pulse 80 03/29/21 11:23 Resp 16 03/29/21 11:23 BP 129/51 L 03/29/21 11:23 Pulse Ox 95 03/29/21 11:23 Weight - Most Recent: 67.132 kg I&O - Last 24 Hours: Intake & Output 03/28/21 03/29/21 03/29/21 22:59 06:59 14:59 Intake Total 400 Output Total 200 400 Balance 200 -400 Lab Results Last 24 Hours: Laboratory Results - last 24 hr 03/29/21 03/29/21 Range/Units 05:38 05:38 WBC 18.1 H (4.5-11.0) K/uL RBC 3.66 (3.30-5.50) M/uL Hgb 11.4 L (12.0-15.0) g/dL Hct 34.9 L (36.0-48.0) % MCV 95 (80-98) fL MCH 31 (27-31) pg MCHC 33 (32-36) % Plt Count 199 (150-400) K/uL Sodium 136 L (140-148) mmol/L Potassium 2.8 L* (3.6-5.2) mmol/L Chloride 97 L (100-108) mmol/L Carbon Dioxide 28 (21-32) mmol/L Anion Gap 13.8 (5.0-14.0) mmol/L BUN 18 (7-18) mg/dL Creatinine 0.8 (0.6-1.0) mg/dL Est Cr Clr Drug Dosing 35.59 mL/min Estimated GFR (MDRD) > 60 (>60) Glucose 149 H (74-106) mg/dL Calcium 8.1 L (8.5-10.1) mg/dL Med Orders - Current: Current Medications Acetaminophen (Acetaminophen 325 Mg Tab) 650 mg PO Q4H PRN PRN Reason: Pain/Fever Last Admin: 03/29/21 03:07 Dose: 650 mg Documented by: Albuterol (Albuterol 0.083% 2.5 Mg/3 Ml Neb Soln) 2.5 mg NEB Q4H PRN PRN Reason: Shortness of Breath Albuterol/Ipratropium (Albuterol/Ipratropium 3.0-0.5 Mg/3 Ml Neb Soln) 3 ml NEB QIDRT [facility] Last Admin: 03/29/21 10:41 Dose: 3 ml Documented by: Amlodipine Besylate (Amlodipine 5 Mg Tab) 5 mg PO DAILY [facility] Last Admin: 03/29/21 08:02 Dose: 5 mg Documented by: Aspirin (Aspirin 81 Mg Tab.Ec) 81 mg PO DAILY [facility] Last Admin: 03/29/21 10:19 Dose: 81 mg Documented by: Atorvastatin Calcium (Atorvastatin 20 Mg Tab) 60 mg PO DAILY [facility] Last Admin: 03/29/21 08:04 Dose: 60 mg Documented by: Azithromycin (Azithromycin 250 Mg Tab) 500 mg PO BEDTIME [facility] Last Admin: 03/28/21 21:53 Dose: 500 mg Documented by: Carvedilol (Carvedilol 3.125 Mg Tab) 6.25 mg PO BIDAC [facility] Last Admin: 03/29/21 07:31 Dose: 6.25 mg Documented by: Escitalopram Oxalate (Escitalopram 10 Mg Tab) 10 mg PO DAILY [facility] Last Admin: 03/29/21 08:02 Dose: 10 mg Documented by: Furosemide 20 mg/ Furosemide (40 mg) 60 mg PO DAILY [facility] Last Admin: 03/29/21 08:04 Dose: 60 mg Documented by: Hydrochlorothiazide (Hydrochlorothiazide 12.5 Mg Cap) 12.5 mg PO DAILY [facility] Last Admin: 03/29/21 08:02 Dose: 12.5 mg Documented by: Promethazine HCl 6.25 mg/ (Sodium Chloride) 50.25 mls @ 200 mls/hr IV Q6H PRN PRN Reason: Nausea/Vomiting Ceftriaxone Sodium 1 gm/ (Sodium Chloride) 50 mls @ 100 mls/hr IV Q24H [facility] Last Admin: 03/28/21 21:48 Dose: 100 mls/hr Documented by: Lorazepam (Lorazepam 2 Mg/Ml Sdv) 1 mg IVPUSH Q4H PRN PRN Reason: Agitation Losartan Potassium (Losartan 50 Mg Tab) 100 mg PO DAILY [facility] Last Admin: 03/29/21 08:05 Dose: 100 mg Documented by: Mometasone Furoate/Formoterol Fumar (Formoterol/Mometasone 200-5 Mcg 8.8 Gm Inhaler) 2 puff IH BIDRT [facility] Last Admin: 03/29/21 07:20 Dose: 2 puff Documented by: Montelukast Sodium (Montelukast 10 Mg Tab) 10 mg PO BEDTIME [facility] Morphine Sulfate (Morphine 2 Mg/Ml Syringe) 2 mg IVPUSH Q4H PRN PRN Reason: severe pain Last Admin: 03/28/21 03:02 Dose: 2 mg Documented by: Ondansetron HCl (Ondansetron 4 Mg/2 Ml Sdv) 4 mg IV Q4H PRN PRN Reason: Nausea/Vomiting Prednisone (Prednisone 20 Mg Tab) 40 mg PO WITHBREAKFAST [facility] Last Admin: 03/29/21 08:02 Dose: 40 mg Documented by: Sodium Chloride (Sodium Chloride 0.9% 10 Ml Syringe) 10 ml FLUSH ASDIRECTED PRN PRN Reason: Keep Vein Open Last Admin: 03/28/21 00:44 Dose: 10 ml Documented by: Tiotropium [place] (Tiotropium [place] 4 Gm Inhalation [place] (2.5mcg/1 Dose; 10 Doses)) 0 gm INH DAILYRT [facility] Last Admin: 03/29/21 07:21 Dose: 2 puff Documented by: Discontinued Medications Albuterol/Ipratropium (Albuterol/Ipratropium 3.0-0.5 Mg/3 Ml Neb Soln) 3 ml NEB QID PRN PRN Reason: Shortness Of Breath/wheezing Dexamethasone (Dexamethasone 4 Mg/Ml Sdv) 4 mg IVPUSH Q12H [facility] Last Admin: 03/28/21 03:45 Dose: 4 mg Documented by: Furosemide (Furosemide 40 Mg/4 Ml Vial) 40 mg IVPUSH ONETIME ONE Stop: 03/28/21 02:16 Last Admin: 03/28/21 03:50 Dose: 40 mg Documented by: Ceftriaxone Sodium 1 gm/ (Sodium Chloride) 50 mls @ 100 mls/hr IV ONETIME ONE Stop: 03/28/21 00:58 Last Admin: 03/28/21 00:41 Dose: 100 mls/hr Documented by: Azithromycin 500 mg/ Sodium (Chloride) 250 mls @ 250 mls/hr IV ONETIME ONE Stop: 03/28/21 03:10 Last Admin: 03/28/21 03:57 Dose: 250 mls/hr Documented by: Potassium Chloride 20 meq/Lidocaine HCl 2 ml/ Sodium Chloride 112 mls @ 56 mls/hr IV ONETIME ONE Stop: 03/29/21 09:59 Last Admin: 03/29/21 08:01 Dose: 56 mls/hr Documented by: Ketorolac Tromethamine (Ketorolac 30 Mg/Ml Sdv) 30 mg IM Q6H PRN PRN Reason: Pain (moderate 4-6) Methylprednisolone Sodium Succinate (Methylprednisolone Sodium Succinate 125 Mg/2 Ml Sdv) 62.5 mg IVPUSH Q8H [facility]ENN[facility]ER Stop: 03/29/21 04:00 Last Admin: 03/29/21 02:55 Dose: 62.5 mg Documented by: Nitroglycerin (Nitroglycerin 0.4 Mg Tab.Sl) 0.4 mg SL Q5M PRN PRN Reason: Chest Pain Potassium Chloride (Potassium Chloride 20 Meq Tab.Er) 40 meq PO ONETIME ONE Stop: 03/29/21 06:15 Last Admin: 03/29/21 07:30 Dose: 40 meq Documented by: - Exam Quality Assessment: No: Supplemental Oxygen Urinary Catheter Total Time: 0Days 11Hours General: Alert, Oriented, Cooperative, No Acute Distress Lungs: Clear to Auscultation, Normal Respiratory Effort Cardiovascular: Regular Rate, Regular Rhythm GI/Abdominal Exam: Soft, No Distention Extremities: No Pedal Edema. No: Increased Warmth Skin: Warm, Dry Psy/Mental Status: Alert, Normal Affect - Patient Data Lab Results Last 24 hrs: Laboratory Results - last 24 hr 03/29/21 03/29/21 Range/Units 05:38 05:38 WBC 18.1 H (4.5-11.0) K/uL RBC 3.66 (3.30-5.50) M/uL Hgb 11.4 L (12.0-15.0) g/dL Hct 34.9 L (36.0-48.0) % MCV 95 (80-98) fL MCH 31 (27-31) pg MCHC 33 (32-36) % Plt Count 199 (150-400) K/uL Sodium 136 L (140-148) mmol/L Potassium 2.8 L* (3.6-5.2) mmol/L Chloride 97 L (100-108) mmol/L Carbon Dioxide 28 (21-32) mmol/L Anion Gap 13.8 (5.0-14.0) mmol/L BUN 18 (7-18) mg/dL Creatinine 0.8 (0.6-1.0) mg/dL Est Cr Clr Drug Dosing 35.59 mL/min Estimated GFR (MDRD) > 60 (>60) Glucose 149 H (74-106) mg/dL Calcium 8.1 L (8.5-10.1) mg/dL Result Diagrams: 03/29/21 05:38 03/29/21 05:38 Sepsis Event Note - Evaluation Sepsis Screening Result: No Definite Risk - Focused Exam Vital Signs: Vital Signs Temp Pulse Pulse Resp BP BP Pulse Ox 03/29/21 11:23 37.2 C 80 16 129/51 L 95 03/29/21 08:05 146/54 H 03/29/21 08:02 146/54 H 03/29/21 07:31 84 146/54 H 03/29/21 07:00 37.2 C 86 16 146/54 H 95 03/29/21 03:03 37.6 C 87 18 140/49 L 95 - Problem List Review Problem List Initiated/Reviewed/Updated: Yes - My Orders Last 24 Hours: My Active Orders 03/28/21 13:17 Acetaminophen [TylenoL] 650 mg PO Q4H PRN 03/28/21 13:18 Antiembolic Devices [RC] .Routine SCD [Sequential Compression Device] [OM.PC] Routine 03/28/21 16:30 carvediloL [Coreg] 6.25 mg PO BIDAC 03/28/21 21:00 Azithromycin [Zithromax] 500 mg PO BEDTIME Mometasone/Formoterol [Dulera 200-5 MCG] 2 puff IH BIDRT cefTRIAXone [Rocephin] 1 gm Sodium Chloride 0.9% [Normal Saline] 50 ml IV Q24H 03/29/21 07:00 Tiotropium [place] [Spiriva Respimat] 0 gm INH DAILYRT 03/29/21 08:00 predniSONE 40 mg PO WITHBREAKFAST 03/29/21 09:00 Aspirin [Halfprin] 81 mg PO DAILY Escitalopram [Lexapro] 10 mg PO DAILY Furosemide [Lasix] 60 mg PO DAILY Losartan [Cozaar] 100 mg PO DAILY amLODIPine [Norvasc] 5 mg PO DAILY atorvaSTATin [Lipitor] 60 mg PO DAILY hydroCHLOROthiazide 12.5 mg PO DAILY 03/29/21 13:27 Ibuprofen [Motrin] 600 mg PO ONETIME ONE 03/29/21 21:00 Montelukast [Singulair] 10 mg PO BEDTIME - Plan Plan:: ASSESSMENT AND PLAN - Probable right lower lobe pneumonia-complicated by acute respiratory failure with both hypoxia and hypercapnia. Respiratory status steadily improving. -Antibiotic coverage with ceftriaxone and azithromycin -Continue prednisone -Supplement oxygen as needed -Symptomatic management of cough COPD with acute exacerbation-suspect pulmonary infection with possible contribution from environmental factors. -Management as above -Continue home medications Coronary artery disease-chest pain secondary to recent chest compressions but otherwise stable. -Continue medical management Maintenance issues - -DVT prophylaxis-mechanical -GI prophylaxis-not indicated -Nutrition- regular -Anderson catheter-removed Disposition -I anticipate discharge home with home care after the hospital stay, likely tomorrow if stable overnight Chente Powell M.D.
[2021-03-29] MEDS ORDERED: Ibuprofen 600 MG Tab PO ONE (13:30)
[2021-03-29] MEDS: Azithromycin 250 MG Tab PO SCH (20:31)
[2021-03-29] MEDS: cefTRIAXone 1 GM in Sodium Chloride 0.9% 50 ML IV SCH (20:32)
[2021-03-29] MEDS ORDERED: Montelukast 10 MG Tab PO SCH (21:00)
[2021-03-30 07:08] VITALS: BP 160/66; PULSE 84
[2021-03-30] MEDS: Albuterol/Ipratropium 3.0-0.5 MG/3 ML Neb Soln NEB SCH ×2 (07:17→10:51)
[2021-03-30] MEDS: Tiotropium Bromide 4 GM Inhalation Spray (2.5mcg/1 dose; 10 doses) INH SCH (07:17)
[2021-03-30] MEDS: Formoterol/Mometasone 200-5 MCG 8.8 GM Inhaler IH SCH (07:17)
[2021-03-30] MEDS: predniSONE 20 MG Tab PO SCH (08:31)
[2021-03-30] MEDS: Carvedilol 3.125 MG Tab PO SCH (08:31)
[2021-03-30] MEDS: atorvaSTATin 20 MG Tab PO SCH (08:32)
[2021-03-30] MEDS: amLODIPine 5 MG Tab PO SCH (08:32)
[2021-03-30] MEDS: Losartan 50 MG Tab PO SCH (08:32)
[2021-03-30] MEDS: Aspirin 81 MG Tab.EC PO SCH (08:32)
[2021-03-30] MEDS: Escitalopram 10 MG Tab PO SCH (08:32)
[2021-03-30] MEDS: Hydrochlorothiazide 12.5 MG Cap PO SCH (08:32)
--- NOTE | 2021-03-30 11:00 | PCM.DCSUM1 ---
Discharge Summary - Hospital Course Brief History: 85-year-old female with history of stable COPD/asthma who presented after an episode of unresponsiveness at home. She was quite hypoxic in route and did receive CPR from her family prior to paramedics arriving. Work-up in the emergency room suggested acute respiratory failure with both hypoxia and hypercapnia. She was started on noninvasive ventilation as well as antibiotic therapy for probable bronchitis and admitted for further management. Diagnosis: Stroke: No - Discharge Data Discharge Date: 03/30/21 Discharge Disposition: Home, W Home Health Agency 06 Condition: Good - Referral to Home Health Date of Face to Face Encounter: 03/30/21 Reason for Homebound Status: acute on chronic dyspnea with exertion and generalized weakness Primary Care Physician: Nabeel Dubon NP Skilled Need: nursing, PT - Patient Summary/Data Hospital Course: Jennie presented to the emergency room after an episode of unresponsiveness at home. She did receive CPR from her family prior to paramedics arriving. She received supplemental oxygen in route. Work-up in the emergency room revealed acute respiratory failure with both hypoxia and hypercapnia. Blood gases showed a pH of 7.1 and PCO2 of nearly 100. Chest x-ray did not suggest a pneumonia and exacerbation of her COPD was suspected. She did require noninvasive ventilation in the emergency room. She was started on IV antibiotics and did also receive a dose of furosemide. She was admitted to the hospital for further management. Overnight following admission we were able to wean down the noninvasive ventilation and eventually wean this off and transition her to nasal cannula. By the morning after admission the patient was feeling a fair amount better. Her vital signs had stabilized. Her white blood cell count had risen some like ly secondary to the stress of the event of the night before. She had some discomfort in her chest from the compressions provided by her family. She was weaned off of supplemental oxygen the day after admission. We continued the antibiotics to treat presumed bronchitis. We continued the steroids but then transition him to oral steroids. We saw further improvement over the next couple of days. On the morning of discharge she is feeling well and not requiring any supplemental oxygen. She does have some persistent pain in the chest from the compressions but overall is doing quite well. She is interested in going home at this point and I believe she is stable for discharge to home. I do not believe she had a cardiac arrest but may have had a respiratory arrest. Her respiratory status has improved dramatically. She will be on antibiotics for a few more days after hospital discharge. She was interested in home care to help ease her transition home. - Patient Instructions Diet: Regular Diet as Tolerated Activity: As Tolerated Showering/Bathing: May Shower Other/Special Instructions: 1. You were in the hospital for management of acute respiratory failure caused by a suspected bronchitis. Your condition has been improving with antibiotics and steroids. I believe you have completed adequate steroid therapy. I do recommend additional antibiotic therapy with a combination of a azithromycin and cefdinir. Please take a azithromycin 500 mg once daily at bedtime for 3 doses. Your first dose will be due tonight. Also please take cefdinir 300 mg twice daily for 6 doses. Your first dose will be due tonight. You may increase your activity as tolerated after returning home. 2. Continue your usual home medications as previously prescribed. 3. I have placed a referral to home health care. They will provide nursing and physical therapy services to help ease your transition home. 4. Follow up with your primary care as scheduled - Discharge Plan *PRESCRIPTION DRUG MONITORING PROGRAM REVIEWED*: Not Applicable *COPY OF PRESCRIPTION DRUG MONITORING REPORT IN PATIENT DEXTER: Not Applicable Prescriptions/Med Rec: Azithromycin 500 mg PO BEDTIME #3 tablet Cefdinir 300 mg PO BID #6 capsule Home Medications: Home Meds Albuterol Sulfate [Proair Hfa] 2 puff IH Q6H PRN 08/21/14 [History] Albuterol/Ipratropium [DuoNeb 3.0-0.5 MG/3 ML] 1 ampule IH Q6H PRN 08/21/14 [History] Aspirin [Halfprin] 81 mg PO DAILY 08/21/14 [History] Calcium Carbonate [Tums] 500 mg PO ASDIRECTED PRN 08/21/14 [History] Fluticasone Propion/Salmeterol [Advair 250-50 Diskus] 1 puff IH BID 08/21/14 [History] Furosemide 60 mg PO DAILY 08/21/14 [History] Losartan [Cozaar] 100 mg PO DAILY 08/21/14 [History] Montelukast Sodium [Singulair] 10 mg PO DAILY 08/21/14 [History] Nitroglycerin 0.4 mg SL ASDIRECTED PRN 08/21/14 [History] atorvaSTATin [Lipitor] 60 mg PO DAILY 08/21/14 [History] hydroCHLOROthiazide [Hydrochlorothiazide] 12.5 mg PO DAILY 06/22/17 [History] amLODIPine Besylate [Amlodipine Besylate] 5 mg PO DAILY 01/16/18 [History] Escitalopram [Lexapro] 10 mg PO DAILY 04/21/20 [History] Potassium Chloride [Klor-Con M10] 10 meq PO DAILY 12/25/20 [History] Umeclidinium [place] [Incruse Ellipta*] 1 inhalation PO DAILY 03/28/21 [History] carvediloL [Carvedilol] 6.25 mg PO BIDAC 03/28/21 [History] Azithromycin 500 mg PO BEDTIME #3 tablet 03/30/21 [Rx] Cefdinir 300 mg PO BID #6 capsule 03/30/21 [Rx] Patient Handouts: Cefdinir Capsules, Azithromycin tablets, Community-Acquired Pneumonia, Adult, [id number] Referrals: Nabeel Dubon PHARMACY SALES ASSISTANT [Primary Care Provider] - 04/09/21 1:00 pm - Discharge Summary/Plan Comment DC Time >30 min.: Yes (40-set up home care ) - Patient Data Vitals - Most Recent: Last Vital Signs Temp 37.4 C 03/30/21 07:06 Pulse 84 03/30/21 08:31 Resp 20 03/30/21 07:06 BP 160/66 H 03/30/21 08:32 Pulse Ox 95 03/30/21 07:06 Weight - Most Recent: 67.132 kg I&O - Last 24 hours: Intake & Output 03/29/21 03/30/21 03/30/21 22:59 06:59 14:59 Intake Total 450 750 Balance 450 750 Med Orders - Current: Current Medications Acetaminophen (Acetaminophen 325 Mg Tab) 650 mg PO Q4H PRN PRN Reason: Pain/Fever Last Admin: 03/29/21 20:28 Dose: 650 mg Documented by: Albuterol (Albuterol 0.083% 2.5 Mg/3 Ml Neb Soln) 2.5 mg NEB Q4H PRN PRN Reason: Shortness of Breath Albuterol/Ipratropium (Albuterol/Ipratropium 3.0-0.5 Mg/3 Ml Neb Soln) 3 ml NEB QIDRT [facility]ENN[facility] Last Admin: 03/30/21 10:51 Dose: 3 ml Documented by: Amlodipine Besylate (Amlodipine 5 Mg Tab) 5 mg PO DAILY [facility] Last Admin: 03/30/21 08:32 Dose: 5 mg Documented by: Aspirin (Aspirin 81 Mg Tab.Ec) 81 mg PO DAILY [facility] Last Admin: 03/30/21 08:32 Dose: 81 mg Documented by: Atorvastatin Calcium (Atorvastatin 20 Mg Tab) 60 mg PO DAILY [facility] Last Admin: 03/30/21 08:32 Dose: 60 mg Documented by: Azithromycin (Azithromycin 250 Mg Tab) 500 mg PO BEDTIME [facility] Last Admin: 03/29/21 20:31 Dose: 500 mg Documented by: Carvedilol (Carvedilol 3.125 Mg Tab) 6.25 mg PO BIDAC [facility] Last Admin: 03/30/21 08:31 Dose: 6.25 mg Documented by: Escitalopram Oxalate (Escitalopram 10 Mg Tab) 10 mg PO DAILY [facility] Last Admin: 03/30/21 08:32 Dose: 10 mg Documented by: Furosemide 20 mg/ Furosemide (40 mg) 60 mg PO DAILY [facility] Last Admin: 03/30/21 08:32 Dose: 60 mg Documented by: Hydrochlorothiazide (Hydrochlorothiazide 12.5 Mg Cap) 12.5 mg PO DAILY [facility] Last Admin: 03/30/21 08:32 Dose: 12.5 mg Documented by: Promethazine HCl 6.25 mg/ (Sodium Chloride) 50.25 mls @ 200 mls/hr IV Q6H PRN PRN Reason: Nausea/Vomiting Ceftriaxone Sodium 1 gm/ (Sodium Chloride) 50 mls @ 100 mls/hr IV Q24H [facility] Last Admin: 03/29/21 20:32 Dose: 100 mls/hr Documented by: Lorazepam (Lorazepam 2 Mg/Ml Sdv) 1 mg IVPUSH Q4H PRN PRN Reason: Agitation Losartan Potassium (Losartan 50 Mg Tab) 100 mg PO DAILY [facility] Last Admin: 03/30/21 08:32 Dose: 100 mg Documented by: Mometasone Furoate/Formoterol Fumar (Formoterol/Mometasone 200-5 Mcg 8.8 Gm Inhaler) 2 puff IH BIDRT [facility] Last Admin: 03/30/21 07:17 Dose: 2 puff Documented by: Montelukast Sodium (Montelukast 10 Mg Tab) 10 mg PO BEDTIME [facility] Last Admin: 03/29/21 20:31 Dose: 10 mg Documented by: Morphine Sulfate (Morphine 2 Mg/Ml Syringe) 2 mg IVPUSH Q4H PRN PRN Reason: severe pain Last Admin: 03/28/21 03:02 Dose: 2 mg Documented by: Ondansetron HCl (Ondansetron 4 Mg/2 Ml Sdv) 4 mg IV Q4H PRN PRN Reason: Nausea/Vomiting Prednisone (Prednisone 20 Mg Tab) 40 mg PO WITHBREAKFAST [facility] Last Admin: 03/30/21 08:31 Dose: 40 mg Documented by: Sodium Chloride (Sodium Chloride 0.9% 10 Ml Syringe) 10 ml FLUSH ASDIRECTED PRN PRN Reason: Keep Vein Open Last Admin: 03/28/21 00:44 Dose: 10 ml Documented by: Tiotropium [place] (Tiotropium [place] 4 Gm Inhalation [place] (2.5mcg/1 Dose; 10 Doses)) 0 gm INH DAILYRT [facility] Last Admin: 03/30/21 07:17 Dose: 2 puff Documented by: Discontinued Medications Albuterol/Ipratropium (Albuterol/Ipratropium 3.0-0.5 Mg/3 Ml Neb Soln) 3 ml NEB QID PRN PRN Reason: Shortness Of Breath/wheezing Dexamethasone (Dexamethasone 4 Mg/Ml Sdv) 4 mg IVPUSH Q12H [facility] Last Admin: 03/28/21 03:45 Dose: 4 mg Documented by: Furosemide (Furosemide 40 Mg/4 Ml Vial) 40 mg IVPUSH ONETIME ONE Stop: 03/28/21 02:16 Last Admin: 03/28/21 03:50 Dose: 40 mg Documented by: Ceftriaxone Sodium 1 gm/ (Sodium Chloride) 50 mls @ 100 mls/hr IV ONETIME ONE Stop: 03/28/21 00:58 Last Admin: 03/28/21 00:41 Dose: 100 mls/hr Documented by: Azithromycin 500 mg/ Sodium (Chloride) 250 mls @ 250 mls/hr IV ONETIME ONE Stop: 03/28/21 03:10 Last Admin: 03/28/21 03:57 Dose: 250 mls/hr Documented by: Potassium Chloride 20 meq/Lidocaine HCl 2 ml/ Sodium Chloride 112 mls @ 56 mls/hr IV ONETIME ONE Stop: 03/29/21 09:59 Last Admin: 03/29/21 08:01 Dose: 56 mls/hr Documented by: Ibuprofen (Ibuprofen 600 Mg Tab) 600 mg PO ONETIME ONE Stop: 03/29/21 13:31 Last Admin: 03/29/21 13:34 Dose: 600 mg Documented by: Ketorolac Tromethamine (Ketorolac 30 Mg/Ml Sdv) 30 mg IM Q6H PRN PRN Reason: Pain (moderate 4-6) Methylprednisolone Sodium Succinate (Methylprednisolone Sodium Succinate 125 Mg/2 Ml Sdv) 62.5 mg IVPUSH Q8H JENNIFER Stop: 03/29/21 04:00 Last Admin: 03/29/21 02:55 Dose: 62.5 mg Documented by: Nitroglycerin (Nitroglycerin 0.4 Mg Tab.Sl) 0.4 mg SL Q5M PRN PRN Reason: Chest Pain Potassium Chloride (Potassium Chloride 20 Meq Tab.Er) 40 meq PO ONETIME ONE Stop: 03/29/21 06:15 Last Admin: 03/29/21 07:30 Dose: 40 meq Documented by:
== END 2021-03-30 12:25 | disposition home health service (06) | DRG 189 ==
LOC: JP.ED 22:11 → JP.MS 03-28 01:54
PROVIDERS: ADMIT Family Medicine; ATTEND Internal Medicine
DX: J18.9 Pneumonia, unspecified organism (principal); J96.02 Acute respiratory failure with hypercapnia; I13.0 Hypertensive heart and chronic kidney disease with heart failure and stage 1 through stage 4 chronic kidney disease, or unspecified chronic kidney disease; J96.01 Acute respiratory failure with hypoxia; Z66 Do not resuscitate; J20.9 Acute bronchitis, unspecified; H91.90 Unspecified hearing loss, unspecified ear; J43.9 Emphysema, unspecified; I25.10 Atherosclerotic heart disease of native coronary artery without angina pectoris; I12.9 Hypertensive chronic kidney disease with stage 1 through stage 4 chronic kidney disease, or unspecified chronic kidney disease; N18.9 Chronic kidney disease, unspecified; E78.00 Pure hypercholesterolemia, unspecified; M85.80 Other specified disorders of bone density and structure, unspecified site; I50.9 Heart failure, unspecified; F43.9 Reaction to severe stress, unspecified; M19.90 Unspecified osteoarthritis, unspecified site; Z20.822 Contact with and (suspected) exposure to COVID-19; F41.9 Anxiety disorder, unspecified; F32.9 Major depressive disorder, single episode, unspecified; R32 Unspecified urinary incontinence; Z95.5 Presence of coronary angioplasty implant and graft; I25.2 Old myocardial infarction; Z98.890 Other specified postprocedural states; Z88.2 Allergy status to sulfonamides; Z79.82 Long term (current) use of aspirin; Z79.899 Other long term (current) drug therapy; Z95.1 Presence of aortocoronary bypass graft
CPT/HCPCS: 0241U; 36415; 36600; 70450; 71045; 80048; 80053; 81001; 82140; 82803; 82947; 83605; 83735; 84484; 85025; 85027; 85610; 85730; 93005; 94640; 94660; A9270-GY; J0456; J0696; J1100; J1940; J2270; J2930; J3480; J7050; J7512; J7620-GY

== ENCOUNTER 2021-06-02 11:15 | Emergency (ER) | payer MEDICARE, BC ==
[2021-06-02 11:53] VITALS: BP 160/79; PULSE 86
--- NOTE | 2021-06-02 12:04 | EDM.PDOC ---
ED HPI GENERAL MEDICAL PROBLEM - General Chief Complaint: Respiratory Problem Stated Complaint: SHORTNESS OF BREATH Time Seen by Provider: 06/02/21 12:04 Source of Information: Reports: Patient, Family, RN Notes Reviewed History Limitations: Reports: No Limitations - History of Present Illness INITIAL COMMENTS - FREE TEXT/NARRATIVE: Jennie presents today for complaints of SOB with wheezing for 24 hours. She states she had to use her albuterol nebulizer more frequently last night at 2100, 0500, 0800, and 1000 for wheezing. She states she has a cough that is dry. Once and awhile she coughs up very small amount of mucus that is yellow. She denies chills, nausea, change in bowel/bladder issues, body aches, fever or other concerns. She has had exposure to those who are unvaccinated for COVID. Jennie is vaccinated - moderna. - Related Data Allergies Allergy/AdvReac Type Severity Reaction Status Date / Time Sulfa (Sulfonamide Allergy Mouth Sores Verified 06/02/21 11:46 Antibiotics) Home Meds: Home Meds Albuterol Sulfate [Proair Hfa] 2 puff IH Q6H PRN 08/21/14 [History] Albuterol/Ipratropium [DuoNeb 3.0-0.5 MG/3 ML] 1 ampule IH Q6H PRN 08/21/14 [History] Aspirin [Halfprin] 81 mg PO DAILY 08/21/14 [History] Calcium Carbonate [Tums] 500 mg PO ASDIRECTED PRN 08/21/14 [History] Fluticasone Propion/Salmeterol [Advair 250-50 Diskus] 1 puff IH BID 08/21/14 [History] Furosemide 60 mg PO DAILY 08/21/14 [History] Losartan [Cozaar] 100 mg PO DAILY 08/21/14 [History] Montelukast Sodium [Singulair] 10 mg PO DAILY 08/21/14 [History] Nitroglycerin 0.4 mg SL ASDIRECTED PRN 08/21/14 [History] atorvaSTATin [Lipitor] 60 mg PO DAILY 08/21/14 [History] hydroCHLOROthiazide [Hydrochlorothiazide] 12.5 mg PO DAILY 06/22/17 [History] amLODIPine Besylate [Amlodipine Besylate] 5 mg PO DAILY 01/16/18 [History] Escitalopram [Lexapro] 10 mg PO DAILY 04/21/20 [History] Potassium Chloride [Klor-Con M10] 10 meq PO DAILY 12/25/20 [History] Umeclidinium [place] [Incruse Ellipta*] 1 inhalation PO DAILY 03/28/21 [History] carvediloL [Carvedilol] 6.25 mg PO BIDAC 03/28/21 [History] Azithromycin 500 mg PO BEDTIME #3 tablet 03/30/21 [Rx] Cefdinir 300 mg PO BID #6 capsule 03/30/21 [Rx] Past Medical History HEENT History: Reports: Hard of Hearing Cardiovascular History: Reports: Bypass, CAD, High Cholesterol, Hypertension, [place], SOB on Exertion Respiratory History: Reports: Asthma, COPD, SOB Other Respiratory History: emphasema Genitourinary History: Reports: Chronic Renal Insuffiency, Urinary Incontinence Other Genitourinary History: renal artery stenosis 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: Musculoskeletal History: Reports: Arthritis, Fracture Other Musculoskeletal History: osteopenia Psychiatric History: Reports: Anxiety, Depression - Infectious Disease History Infectious Disease History: Reports: Chicken Pox, Influenza, Measles, Pertussis (Whooping Cough) - Past Surgical History Head Surgeries/Procedures: Reports: None HEENT Surgical History: Reports: Tonsillectomy Cardiovascular Surgical History: Reports: Carotid Stents, Coronary Artery Bypass, Coronary Artery Stent Respiratory Surgical History: Reports: None GI Surgical History: Reports: None Female Surgical History: Reports: Other (See Below) Other Female Surgeries/Procedures: kidney stents Musculoskeletal Surgical History: Reports: None Dermatological Surgical History: Reports: None Social & Family History - Family History Family Medical History: No Pertinent Family History - Tobacco Use Tobacco Use Status *Q: Never Tobacco User Second Hand Smoke Exposure: No - Caffeine Use Caffeine Use: Reports: Coffee - Recreational Drug Use Recreational Drug Use: No ED ROS GENERAL - Review of Systems Review Of Systems: See Below Constitutional: Denies: Fever, Chills, Malaise, Weakness, Fatigue, Night Sweats, Diaphoresis HEENT: Reports: No Symptoms Respiratory: Reports: Shortness of Breath (with cough), Wheezing, Cough. Denies: Pleuritic Chest Pain, Sputum, Hemoptysis Cardiovascular: Reports: Edema (to bilateral lower legs, worse the past few days). Denies: Chest Pain, Blood Pressure Problem, Claudication, Dyspnea on Exertion, Lightheadedness, Orthopnea, Palpitations, PND, Syncope Endocrine: Reports: No Symptoms GI/Abdominal: Reports: No Symptoms : Reports: No Symptoms Musculoskeletal: Reports: No Symptoms Skin: Reports: No Symptoms Neurological: Reports: No Symptoms Psychiatric: Reports: No Symptoms Hematologic/Lymphatic: Reports: No Symptoms Immunologic: Reports: No Symptoms ED EXAM, GENERAL - Physical Exam Exam: See Below Exam Limited By: No Limitations General Appearance: Alert, WD/WN, No Apparent Distress Eye Exam: Bilateral Eye: Normal Inspection, PERRL Ears: Normal External Exam, Normal Canal, Hearing Grossly Normal, Normal TMs Throat/Mouth: Normal Inspection, Normal Lips, Normal Gums, Normal Oropharynx, Normal Voice, No Airway Compromise Head: Atraumatic, Normocephalic. No: Facial Swelling, Facial Tenderness, Sinus Tenderness Neck: Normal Inspection, Supple, Non-Tender, Full Range of Motion Respiratory/Chest: No Respiratory Distress, No Accessory Muscle Use, Chest Non-Tender, Decreased Breath Sounds, Wheezing (faint expiratory wheezing bilateral upper) Cardiovascular: Normal Peripheral Pulses, Regular Rate, Rhythm, No Edema, No Gallop, No Murmur, No Rub, Other (2+ edema bilateral lower extremities) Peripheral Pulses: 4+: Radial (L), Radial (R), Dorsalis Pedis (L), Dorsalis Pedis (R) GI/Abdominal: Normal Bowel Sounds, Soft, Non-Tender, No Organomegaly, No Distention (Female) Exam: Deferred Rectal (Female) Exam: Deferred Back Exam: Normal Inspection, Full Range of Motion. No: CVA Tenderness (R), CVA Tenderness (L) Extremities: Normal Range of Motion, Non-Tender, Normal Capillary Refill, Pedal Edema (2+ bilateral) Neurological: Alert, Oriented, CN II-XII Intact, Normal Cognition, Normal Gait, Normal Reflexes, No Motor/Sensory Deficits Psychiatric: Normal Affect, Normal Mood Skin Exam: Warm, Dry, Intact, Normal Color, No Rash. No: Ecchymosis, Erythema, Increased Warmth, Rash Lymphatic: No Adenopathy Course - Vital Signs Last Recorded V/S: Last Vital Signs Temp 36.0 C L 06/02/21 11:55 Pulse 86 06/02/21 11:55 Resp 16 06/02/21 11:55 BP 160/79 H 06/02/21 11:55 Pulse Ox 95 06/02/21 11:55 - Orders/Labs/Meds Labs: Laboratory Tests 06/02/21 06/02/21 06/02/21 Range/Units 12:37 12:37 12:39 WBC 15.3 H (4.5-11.0) K/uL RBC 4.03 (3.30-5.50) M/uL Hgb 13.1 (12.0-15.0) g/dL Hct 39.7 (36.0-48.0) % MCV 99 H (80-98) fL MCH 33 H (27-31) pg MCHC 33 (32-36) % Plt Count 200 (150-400) K/uL Neut % (Auto) 80.9 H (36-66) % Lymph % (Auto) 8.6 L (24-44) % Sampson % (Auto) 6.2 H (2-6) % Eos % (Auto) 3.9 (2-4) % Baso % (Auto) 0.4 (0-1) % Sodium 138 L (140-148) mmol/L Potassium 3.9 (3.6-5.2) mmol/L Chloride 99 L (100-108) mmol/L Carbon Dioxide 32 (21-32) mmol/L Anion Gap 10.9 (5.0-14.0) mmol/L BUN 12 (7-18) mg/dL Creatinine 0.8 (0.6-1.0) mg/dL Est Cr Clr Drug Dosing 35.59 mL/min Estimated GFR (MDRD) > 60 (>60) Glucose 100 (74-106) mg/dL Calcium 9.1 (8.5-10.1) mg/dL Total Bilirubin 0.6 (0.2-1.0) mg/dL AST 16 (15-37) U/L ALT 21 (12-78) U/L Alkaline Phosphatase 54 (46-116) U/L NT-Pro-B Natriuret Pep 1272 H (5-450) pg/mL Total Protein 7.0 (6.4-8.2) g/dL Albumin 3.6 (3.4-5.0) g/dL Globulin 3.4 (2.3-3.5) g/dL Albumin/Globulin Ratio 1.1 L (1.2-2.2) Urine Color (YELLOW) Urine Appearance (CLEAR) Urine pH (5.0-8.0) Ur Specific Dexter (1.008-1.030) Urine Protein (NEGATIVE) mg/dL Urine Glucose (UA) (NEGATIVE) mg/dL Urine Ketones (NEGATIVE) mg/dL Urine Occult Blood (NEGATIVE) Urine Nitrite (NEGATIVE) Urine Bilirubin (NEGATIVE) Urine Urobilinogen (0.2-1.0) EU/dL Ur Leukocyte Esterase (NEGATIVE) Urine RBC (0-5) Urine WBC (0-5) Ur Epithelial Cells Amorphous Sediment Urine Bacteria Urine Mucus SARS CoV-2 RNA Rapid MIKAELA Negative 06/02/21 Range/Units 12:50 WBC (4.5-11.0) K/uL RBC (3.30-5.50) M/uL Hgb (12.0-15.0) g/dL Hct (36.0-48.0) % MCV (80-98) fL MCH (27-31) pg MCHC (32-36) % Plt Count (150-400) K/uL Neut % (Auto) (36-66) % Lymph % (Auto) (24-44) % Sampson % (Auto) (2-6) % Eos % (Auto) (2-4) % Baso % (Auto) (0-1) % Sodium (140-148) mmol/L Potassium (3.6-5.2) mmol/L Chloride (100-108) mmol/L Carbon Dioxide (21-32) mmol/L Anion Gap (5.0-14.0) mmol/L BUN (7-18) mg/dL Creatinine (0.6-1.0) mg/dL Est Cr Clr Drug Dosing mL/min Estimated GFR (MDRD) (>60) Glucose (74-106) mg/dL Calcium (8.5-10.1) mg/dL Total Bilirubin (0.2-1.0) mg/dL AST (15-37) U/L ALT (12-78) U/L Alkaline Phosphatase (46-116) U/L NT-Pro-B Natriuret Pep (5-450) pg/mL Total Protein (6.4-8.2) g/dL Albumin (3.4-5.0) g/dL Globulin (2.3-3.5) g/dL Albumin/Globulin Ratio (1.2-2.2) Urine Color Yellow (YELLOW) Urine Appearance Clear (CLEAR) Urine pH 7.0 (5.0-8.0) Ur Specific Dexter 1.020 (1.008-1.030) Urine Protein Negative (NEGATIVE) mg/dL Urine Glucose (UA) Negative (NEGATIVE) mg/dL Urine Ketones Negative (NEGATIVE) mg/dL Urine Occult Blood Trace-intact H (NEGATIVE) Urine Nitrite Negative (NEGATIVE) Urine Bilirubin Negative (NEGATIVE) Urine Urobilinogen 0.2 (0.2-1.0) EU/dL Ur Leukocyte Esterase Negative (NEGATIVE) Urine RBC 0-5 (0-5) Urine WBC Not seen (0-5) Ur Epithelial Cells Not seen Amorphous Sediment Not seen Urine Bacteria Not seen Urine Mucus Not seen SARS CoV-2 RNA Rapid MIKAELA Patient lab work reviewed, noted WBC 15.3, Neutrophils 80.9, ProBNP 1272. Reviewed case with Dr. Lorenzo. No respiratory distress, noted leukocytosis with left shift, elevated BNP. Will treat with additional furosemide and start levofloxacin. Close follow up with primary and return for any worsening. Patient and her family in agreement with plan. Meds: Medications Discontinued Medications Generic Name Dose Route Start Last Admin Trade Name Freq PRN Reason Stop Dose Admin Furosemide 40 mg 06/02/21 14:33 06/02/21 14:37 Furosemide 40 Mg Tab PO 06/02/21 14:34 40 mg ONETIME ONE Administration Levofloxacin 500 mg 06/02/21 14:22 06/02/21 14:37 Levofloxacin 500 Mg Tab PO 06/02/21 14:23 500 mg ONETIME ONE Administration - Radiology Interpretation Free Text/Narrative:: chest x-ray wet read, reviewed, concerns for congestion for x-ray. Radiologist read pending. Departure - Departure Time of Disposition: 14:33 Disposition: Home, Self-Care 01 Condition: Good Clinical Impression: Congestive heart failure, Pneumonia - Discharge Information *PRESCRIPTION DRUG MONITORING PROGRAM REVIEWED*: Not Applicable *COPY OF PRESCRIPTION DRUG MONITORING REPORT IN PATIENT DEXTER: Not Applicable Instructions: Heart Failure, Self Care, [id number], Community-Acquired Pneumonia, Adult, [id number] Referrals: Nabeel Dubon ENTRY LEVEL ACCOUNTING CLERK [Primary Care Provider] - Forms: ED Department Discharge Additional Instructions: You have been evaluated and treated for CHF with probable pneumonia. You were given furosemide 40mg by mouth in the emergency room as well as Levaquin 500mg by mouth for pneumonia. Take furosemide 80mg by mouth daily for 5 days to help get fluid out of your system. Take Levaquin 500mg by mouth daily for the next 6 days for pneumonia - for 7 days total. Return to the emergency room for any worsening, SOB or difficulty breathing. Use albuterol nebulizer every 6 hours for wheezing the next 3 to 5 days. Follow up with your primary provider in 3 days for a recheck. - Assessment/Plan Assessment:: Congestive heart failure Pneumonia Plan: Patient evaluated and treated for CHF with probable pneumonia. She was given furosemide 40mg by mouth in the emergency room as well as Levaquin 500mg by mouth for pneumonia. Take furosemide 80mg by mouth daily for 5 days to help get fluid out of your system. Take Levaquin 500mg by mouth daily for the next 6 days for pneumonia - for 7 days total. Return to the emergency room for any worsening, SOB or difficulty breathing. Use albuterol nebulizer every 6 hours for wheezing the next 3 to 5 days. Follow up with primary provider in 3 days for a recheck.
[2021-06-02] MEDS ORDERED: Levofloxacin 500 MG Tab PO ONE (14:22)
[2021-06-02] MEDS ORDERED: Furosemide 40 MG Tab PO ONE (14:33)
--- NOTE | 2021-06-02 15:06 | CRLCR ---
For Patients: As a result of the Century Cures Act, medical imaging exams and procedure reports are released immediately into your electronic medical record. You may view this report before your referring provider. If you have questions, please contact your health care provider. Indication: Cough. Shortness of breath. Technique: PA and lateral views the chest. Comparison: March 27, 2021. Findings: The heart is normal in size. Median sternotomy wires are identified. The lungs are clear. No infiltrate, pleural effusion, or pneumothorax is identified. Impression: Stable chest x-ray. Dictated by Ledy Doan MD @ 06/02/2021 3:03:28 PM (Electronically Signed)
== END 2021-06-02 14:46 | disposition home or self-care (01) ==
LOC: JP.ED 11:15
DX: J18.9 Pneumonia, unspecified organism (principal); I13.0 Hypertensive heart and chronic kidney disease with heart failure and stage 1 through stage 4 chronic kidney disease, or unspecified chronic kidney disease; N18.9 Chronic kidney disease, unspecified; I50.9 Heart failure, unspecified; I25.10 Atherosclerotic heart disease of native coronary artery without angina pectoris; E78.00 Pure hypercholesterolemia, unspecified; J44.9 Chronic obstructive pulmonary disease, unspecified; Z88.2 Allergy status to sulfonamides; Z79.82 Long term (current) use of aspirin; Z79.899 Other long term (current) drug therapy; Z20.822 Contact with and (suspected) exposure to COVID-19
CPT/HCPCS: 36415; 71046; 80053; 81001; 83880; 85025; 99285; A9270; U0002

== ENCOUNTER 2021-06-12 17:55 | Inpatient (IN) | payer MEDICARE, BC ==
[2021-06-12] MEDS ORDERED: Albuterol/Ipratropium 3.0-0.5 MG/3 ML Neb Soln NEB ONE (18:00)
[2021-06-12] MEDS ORDERED: methylPREDNISolone Sodium Succinate 125 MG/2 ML SDV ONE (18:09)
[2021-06-12] MEDS ORDERED: methylPREDNISolone Sodium Succinate 125 MG/2 ML SDV IVPUSH ONE (18:11)
[2021-06-12] MEDS ORDERED: Albuterol 0.083% 2.5 MG/3 ML Neb Soln NEB ONE (18:13)
[2021-06-12] MEDS: Sodium Chloride 0.9% 1,000 ML IV SCH ×2 (18:20→21:15)
--- NOTE | 2021-06-12 18:58 | EDM.PDOC ---
ED HPI GENERAL MEDICAL PROBLEM - General Chief Complaint: Respiratory Problem Stated Complaint: [facility] Time Seen by Provider: 06/12/21 18:55 Source of Information: Reports: Patient History Limitations: Reports: No Limitations - History of Present Illness INITIAL COMMENTS - FREE TEXT/NARRATIVE: pt has had some resp problems for thepast 2-3 days. She was taking a neb and she had a resp arrest at home. When the ambulance got there she was just starting to breath on her own. They did bag her for a period of tinme. She was breathing on her own when she arrived. Her sats were in the 80s and she had o2 at 10 liters and and she was still struggling. She did seem mildly confused on arrival. Onset: Today, Sudden Duration: Hour(s): Location: Reports: Chest, Other (pt has a long huistory of severe asthma. ) Associated Symptoms: Reports: Cough, Shortness of Breath, Weakness - Related Data Allergies Allergy/AdvReac Type Severity Reaction Status Date / Time Sulfa (Sulfonamide Allergy Mouth Sores Verified 06/12/21 21:27 Antibiotics) Home Meds: Home Meds Albuterol Sulfate [Proair Hfa] 2 puff IH Q6H PRN 08/21/14 [History] Albuterol/Ipratropium [DuoNeb 3.0-0.5 MG/3 ML] 1 ampule IH Q6H PRN 08/21/14 [History] Aspirin [Halfprin] 81 mg PO DAILY 08/21/14 [History] Calcium Carbonate [Tums] 500 mg PO ASDIRECTED PRN 08/21/14 [History] Fluticasone Propion/Salmeterol [Advair 250-50 Diskus] 1 puff IH BID 08/21/14 [History] Furosemide 60 mg PO DAILY 08/21/14 [History] Losartan [Cozaar] 100 mg PO DAILY 08/21/14 [History] Montelukast Sodium [Singulair] 10 mg PO DAILY 08/21/14 [History] Nitroglycerin 0.4 mg SL ASDIRECTED PRN 08/21/14 [History] atorvaSTATin [Lipitor] 60 mg PO DAILY 08/21/14 [History] hydroCHLOROthiazide [Hydrochlorothiazide] 12.5 mg PO DAILY 06/22/17 [History] amLODIPine Besylate [Amlodipine Besylate] 5 mg PO DAILY 01/16/18 [History] Escitalopram [Lexapro] 10 mg PO DAILY 04/21/20 [History] Potassium Chloride [Klor-Con M10] 10 meq PO DAILY 12/25/20 [History] Umeclidinium Hammond [Incruse Ellipta*] 1 inhalation PO DAILY 03/28/21 [History] carvediloL [Carvedilol] 6.25 mg PO BIDAC 03/28/21 [History] Azithromycin 500 mg PO BEDTIME #3 tablet 03/30/21 [Rx] Cefdinir 300 mg PO BID #6 capsule 03/30/21 [Rx] Past Medical History HEENT History: Reports: Hard of Hearing Cardiovascular History: Reports: Bypass, CAD, High Cholesterol, Hypertension, NE, SOB on Exertion Respiratory History: Reports: Asthma, COPD, SOB Other Respiratory History: emphasema Genitourinary History: Reports: Chronic Renal Insuffiency, Urinary Incontinence Other Genitourinary History: renal artery stenosis [employer] History: Reports: Musculoskeletal History: Reports: Arthritis, Fracture Other Musculoskeletal History: osteopenia Psychiatric History: Reports: Anxiety, Depression - Infectious Disease History Infectious Disease History: Reports: Chicken Pox, Influenza, Measles, Pertussis (Whooping Cough) - Past Surgical History Head Surgeries/Procedures: Reports: None HEENT Surgical History: Reports: Tonsillectomy Cardiovascular Surgical History: Reports: Carotid Stents, Coronary Artery Bypass, Coronary Artery Stent Respiratory Surgical History: Reports: None GI Surgical History: Reports: None Female Surgical History: Reports: Other (See Below) Other Female Surgeries/Procedures: kidney stents Musculoskeletal Surgical History: Reports: None Dermatological Surgical History: Reports: None Social & Family History - Family History Family Medical History: No Pertinent Family History - Caffeine Use Caffeine Use: Reports: Coffee ED ROS GENERAL - Review of Systems Review Of Systems: See Below Constitutional: Reports: Weakness HEENT: Reports: No Symptoms Respiratory: Reports: Shortness of Breath, Other (pt had a resp arrest at home. ) Cardiovascular: Reports: No Symptoms Endocrine: Reports: No Symptoms GI/Abdominal: Reports: No Symptoms : Reports: No Symptoms Musculoskeletal: Reports: No Symptoms Skin: Reports: No Symptoms ED EXAM, GENERAL - Physical Exam Exam: See Below Free Text/Narrative:: pt was taking a neb at home and she had a resp arrest. She was just coming around when the ambulance got there. On arrival she was on 10 liters and her sats were on the lower side. Exam Limited By: No Limitations General Appearance: Alert, Anxious, Moderate Distress Ears: Normal TMs Nose: Normal Inspection Throat/Mouth: Normal Inspection Head: Atraumatic Neck: Normal Inspection Respiratory/Chest: Decreased Breath Sounds, Wheezing Cardiovascular: Regular Rate, Rhythm GI/Abdominal: Soft, No Mass (Female) Exam: Deferred Rectal (Female) Exam: Deferred Back Exam: Normal Inspection Extremities: Normal Inspection Course - Vital Signs Last Recorded V/S: Last Vital Signs Temp 37.2 C 06/13/21 18:43 Pulse 76 06/13/21 18:43 Resp 18 06/13/21 18:43 BP 136/44 L 06/13/21 18:43 Pulse Ox 93 L 06/13/21 18:43 - Orders/Labs/Meds Orders: Medication Orders Acetaminophen (Acetaminophen 325 Mg Tab) 650 mg PO Q4H PRN PRN Reason: Pain (Mild 1-3)/fever Last Admin: 06/13/21 19:38 Dose: 650 mg Documented by: JENNIFER Albuterol (Albuterol 0.083% 2.5 Mg/3 Ml Neb Soln) 2.5 mg NEB Q4H PRN PRN Reason: Shortness Of Breath/wheezing Last Admin: 06/13/21 19:06 Dose: 2.5 mg Documented by: Admin: 06/13/21 05:05 Dose: 2.5 mg Documented by: Admin: 06/13/21 00:24 Dose: 2.5 mg Documented by: BEVERLY Albuterol/Ipratropium (Albuterol/Ipratropium 3.0-0.5 Mg/3 Ml Neb Soln) 3 ml NEB QIDRT [facility] Last Admin: 06/13/21 14:57 Dose: 3 ml Documented by: Admin: 06/13/21 10:41 Dose: 3 ml Documented by: Admin: 06/13/21 07:03 Dose: 3 ml Documented by: Admin: 06/12/21 21:17 Dose: 3 ml Documented by: BEVERLY Amlodipine Besylate (Amlodipine 5 Mg Tab) 5 mg PO DAILY [facility] Last Admin: 06/13/21 08:31 Dose: 5 mg Documented by: Admin: 06/12/21 22:09 Dose: 5 mg Documented by: BEVERLY Atorvastatin Calcium (Atorvastatin 20 Mg Tab) 60 mg PO DAILY [facility] Last Admin: 06/13/21 08:39 Dose: 60 mg Documented by: DIDI Azithromycin (Azithromycin 250 Mg Tab) 500 mg PO BEDTIME JENNIFER Bisacodyl (Bisacodyl 5 Mg Tab) 5 mg PO DAILY PRN PRN Reason: Constipation Calcium Carbonate/Glycine (Calcium Carbonate 500 Mg Tab.Chew) 500 mg PO Q4H PRN PRN Reason: Heartburn Carvedilol (Carvedilol 3.125 Mg Tab) 6.25 mg PO BIDAC [facility] Last Admin: 06/13/21 17:10 Dose: 6.25 mg Documented by: Admin: 06/13/21 08:29 Dose: 6.25 mg Documented by: DIDI Docusate Sodium (Docusate Sodium 100 Mg Cap) 100 mg PO BID PRN PRN Reason: Constipation Enoxaparin Sodium (Enoxaparin 30 Mg/0.3 Ml Syringe) 30 mg SUBCUT BEDTIME [facility] Last Admin: 06/12/21 21:17 Dose: 30 mg Documented by: BEVERLY Escitalopram Oxalate (Escitalopram 10 Mg Tab) 10 mg PO DAILY [facility] Last Admin: 06/13/21 08:30 Dose: 10 mg Documented by: DIDI Furosemide 20 mg/ Furosemide (40 mg) 60 mg PO DAILY [facility] Last Admin: 06/13/21 08:30 Dose: 60 mg Documented by: DDII Hydrochlorothiazide (Hydrochlorothiazide 12.5 Mg Cap) 12.5 mg PO DAILY [facility] Last Admin: 06/13/21 08:29 Dose: 12.5 mg Documented by: DIDI Sodium Chloride (Normal Saline) 1,000 mls @ 100 mls/hr IV ASDIRECTED [facility] Last Admin: 06/13/21 17:10 Dose: 100 mls/hr Documented by: Infusion: 06/13/21 15:04 Dose: 100 mls/hr Documented by: Admin: 06/13/21 05:04 Dose: 100 mls/hr Documented by: KELVIN Doxycycline Hyclate 100 mg/ (Sodium Chloride) 100 mls @ 100 mls/hr IV Q12H [facility] Last Admin: 06/13/21 08:39 Dose: 100 mls/hr Documented by: DIDI Losartan Potassium (Losartan 50 Mg Tab) 100 mg PO DAILY [facility] Last Admin: 06/13/21 08:38 Dose: 100 mg Documented by: DIDI Methylprednisolone Sodium Succinate (Methylprednisolone Sodium Succinate 40 Mg/1 Ml Sdv) 40 mg IVPUSH Q6H [facility] Last Admin: 06/13/21 19:35 Dose: 40 mg Documented by: Admin: 06/13/21 13:09 Dose: 40 mg Documented by: Admin: 06/13/21 08:03 Dose: 40 mg Documented by: DIDI Montelukast Sodium (Montelukast 10 Mg Tab) 10 mg PO DAILY [facility] Last Admin: 06/13/21 08:27 Dose: 10 mg Documented by: DIDI Morphine Sulfate (Morphine 2 Mg/Ml Syringe) 2 mg IVPUSH Q2H PRN PRN Reason: Pain (severe 7-10) Nitroglycerin (Nitroglycerin 0.4 Mg Tab.Sl) 0.4 mg SL ASDIRECTED PRN PRN Reason: Chest Pain Ondansetron HCl (Ondansetron 4 Mg Tab.Dis) 4 mg PO Q6H PRN PRN Reason: Nausea able to take PO Oxycodone HCl (Oxycodone 5 Mg Tab) 5 mg PO Q4H PRN PRN Reason: Pain (moderate 4-6) Pantoprazole Sodium (Pantoprazole 40 Mg Vial) 40 mg IV BEDTIME [facility] Last Admin: 06/12/21 21:17 Dose: 40 mg Documented by: BEVERLY Potassium Chloride (Potassium Chloride 10 Meq Cap.Er) 10 meq PO DAILY [facility] Last Admin: 06/13/21 08:32 Dose: 10 meq Documented by: DIDI Labs: Laboratory Tests 06/12/21 06/12/21 06/12/21 Range/Units 18:05 18:05 18:05 WBC 13.6 H (4.5-11.0) K/uL RBC 4.09 (3.30-5.50) M/uL Hgb 12.9 (12.0-15.0) g/dL Hct 40.7 (36.0-48.0) % MCV 100 H (80-98) fL MCH 32 H (27-31) pg MCHC 32 (32-36) % Plt Count 322 (150-400) K/uL D-Dimer, Quantitative > 01158.00 H (0.0-500.0) ng/mL Puncture Site ABG pH (7.350-7.450) ABG pCO2 (35.0-42.0) mmHg ABG pO2 (75.0-100.0) mmHg ABG HCO3 (22.0-26.0) mmol/L ABG Total CO2 (21.0-25.0) mmol/L ABG O2 Saturation (95.0-98.0) % ABG O2 Content (15.0-23.0) %vol ABG Base Excess mm/L ABG Hemoglobin (12.0-16.0) g/dL ABG Oxyhemoglobin % ABG Carboxyhemoglobin (0.0-1.6) % ABG Methemoglobin % Jens Test O2 Delivery Device Oxygen Flow Rate L Sodium (140-148) mmol/L Potassium (3.6-5.2) mmol/L Chloride (100-108) mmol/L Carbon Dioxide (21-32) mmol/L Anion Gap (5.0-14.0) mmol/L BUN (7-18) mg/dL Creatinine (0.6-1.0) mg/dL Est Cr Clr Drug Dosing Estimated GFR (MDRD) (>60) Glucose (74-106) mg/dL Calcium (8.5-10.1) mg/dL Total Bilirubin (0.2-1.0) mg/dL AST (15-37) U/L ALT (12-78) U/L Alkaline Phosphatase (46-116) U/L Troponin I < 0.017 (0.000-0.056) ng/mL NT-Pro-B Natriuret Pep (5-450) pg/mL Total Protein (6.4-8.2) g/dL Albumin (3.4-5.0) g/dL Globulin (2.3-3.5) g/dL Albumin/Globulin Ratio (1.2-2.2) SARS-CoV-2 RNA (MIKAELA) (NEGATIVE) 06/12/21 06/12/21 06/12/21 Range/Units 18:10 18:12 18:42 WBC (4.5-11.0) K/uL RBC (3.30-5.50) M/uL Hgb (12.0-15.0) g/dL Hct (36.0-48.0) % MCV (80-98) fL MCH (27-31) pg MCHC (32-36) % Plt Count (150-400) K/uL D-Dimer, Quantitative (0.0-500.0) ng/mL Puncture Site Rt radial ABG pH 7.231 L (7.350-7.450) ABG pCO2 67.6 H (35.0-42.0) mmHg ABG pO2 67.4 L (75.0-100.0) mmHg ABG HCO3 27.4 H (22.0-26.0) mmol/L ABG Total CO2 25.6 H (21.0-25.0) mmol/L ABG O2 Saturation 87.9 L (95.0-98.0) % ABG O2 Content 15.7 (15.0-23.0) %vol ABG Base Excess -1.3 mm/L ABG Hemoglobin 12.9 (12.0-16.0) g/dL ABG Oxyhemoglobin 86.7 % ABG Carboxyhemoglobin 0.6 (0.0-1.6) % ABG Methemoglobin 0.8 % Jens Test Pass O2 Delivery Device Non rebr mask Oxygen Flow Rate 10.0 L Sodium 136 L (140-148) mmol/L Potassium 3.5 L (3.6-5.2) mmol/L Chloride 97 L (100-108) mmol/L Carbon Dioxide 31 (21-32) mmol/L Anion Gap 11.5 (5.0-14.0) mmol/L BUN 21 H D (7-18) mg/dL Creatinine 1.0 (0.6-1.0) mg/dL Est Cr Clr Drug Dosing TNP Estimated GFR (MDRD) 52 L (>60) Glucose 169 H (74-106) mg/dL Calcium 9.1 (8.5-10.1) mg/dL Total Bilirubin 0.3 (0.2-1.0) mg/dL AST 39 H D (15-37) U/L ALT 30 (12-78) U/L Alkaline Phosphatase 69 (46-116) U/L Troponin I (0.000-0.056) ng/mL NT-Pro-B Natriuret Pep (5-450) pg/mL Total Protein 6.8 (6.4-8.2) g/dL Albumin 3.6 (3.4-5.0) g/dL Globulin 3.2 (2.3-3.5) g/dL Albumin/Globulin Ratio 1.1 L (1.2-2.2) SARS-CoV-2 RNA (MIKAELA) Negative (NEGATIVE) 06/12/21 Range/Units 18:54 WBC (4.5-11.0) K/uL RBC (3.30-5.50) M/uL Hgb (12.0-15.0) g/dL Hct (36.0-48.0) % MCV (80-98) fL MCH (27-31) pg MCHC (32-36) % Plt Count (150-400) K/uL D-Dimer, Quantitative (0.0-500.0) ng/mL Puncture Site ABG pH (7.350-7.450) ABG pCO2 (35.0-42.0) mmHg ABG pO2 (75.0-100.0) mmHg ABG HCO3 (22.0-26.0) mmol/L ABG Total CO2 (21.0-25.0) mmol/L ABG O2 Saturation (95.0-98.0) % ABG O2 Content (15.0-23.0) %vol ABG Base Excess mm/L ABG Hemoglobin (12.0-16.0) g/dL ABG Oxyhemoglobin % ABG Carboxyhemoglobin (0.0-1.6) % ABG Methemoglobin % Jens Test O2 Delivery Device Oxygen Flow Rate L Sodium (140-148) mmol/L Potassium (3.6-5.2) mmol/L Chloride (100-108) mmol/L Carbon Dioxide (21-32) mmol/L Anion Gap (5.0-14.0) mmol/L BUN (7-18) mg/dL Creatinine (0.6-1.0) mg/dL Est Cr Clr Drug Dosing Estimated GFR (MDRD) (>60) Glucose (74-106) mg/dL Calcium (8.5-10.1) mg/dL Total Bilirubin (0.2-1.0) mg/dL AST (15-37) U/L ALT (12-78) U/L Alkaline Phosphatase (46-116) U/L Troponin I (0.000-0.056) ng/mL NT-Pro-B Natriuret Pep 1467 H (5-450) pg/mL Total Protein (6.4-8.2) g/dL Albumin (3.4-5.0) g/dL Globulin (2.3-3.5) g/dL Albumin/Globulin Ratio (1.2-2.2) SARS-CoV-2 RNA (MIKAELA) (NEGATIVE) Meds: Medications Generic Name Dose Route Start Last Admin Trade Name Freq PRN Reason Stop Dose Admin Acetaminophen 650 mg 06/12/21 20:31 06/13/21 19:38 Acetaminophen 325 Mg Tab PO 650 mg Q4H PRN Administration Pain (Mild 1-3)/fever Albuterol 2.5 mg 06/12/21 20:31 06/13/21 19:06 Albuterol 0.083% 2.5 Mg/3 Ml Neb Soln NEB 2.5 mg Q4H PRN Administration Shortness Of Breath/wheezing Albuterol/Ipratropium 3 ml 06/12/21 21:00 06/13/21 14:57 Albuterol/Ipratropium 3.0-0.5 Mg/3 Ml Neb Soln NEB 3 ml QIDRT JENNIFER Administration Amlodipine Besylate 5 mg 06/12/21 20:31 06/13/21 08:31 Amlodipine 5 Mg Tab PO 5 mg DAILY JENNIFER Administration Atorvastatin Calcium 60 mg 06/13/21 09:00 06/13/21 08:39 Atorvastatin 20 Mg Tab PO 60 mg DAILY JENNIFER Administration Azithromycin 500 mg 06/13/21 21:00 Azithromycin 250 Mg Tab PO BEDTIME JENNIFER Bisacodyl 5 mg 06/12/21 20:31 Bisacodyl 5 Mg Tab PO DAILY PRN Constipation Calcium Carbonate/Glycine 500 mg 06/12/21 20:31 Calcium Carbonate 500 Mg Tab.Chew PO Q4H PRN Heartburn Carvedilol 6.25 mg 06/13/21 07:30 06/13/21 17:10 Carvedilol 3.125 Mg Tab PO 6.25 mg BIDAC JENNIFER Administration Docusate Sodium 100 mg 06/12/21 20:31 Docusate Sodium 100 Mg Cap PO BID PRN Constipation Enoxaparin Sodium 30 mg 06/12/21 21:00 06/12/21 21:17 Enoxaparin 30 Mg/0.3 Ml Syringe SUBCUT 30 mg BEDTIME JENNIFER Administration Escitalopram Oxalate 10 mg 06/13/21 09:00 06/13/21 08:30 Escitalopram 10 Mg Tab PO 10 mg DAILY JENNIFER Administration Furosemide 20 mg/ Furosemide 60 mg 06/13/21 09:00 06/13/21 08:30 40 mg PO 60 mg DAILY JENNIFER Administration Hydrochlorothiazide 12.5 mg 06/13/21 09:00 06/13/21 08:29 Hydrochlorothiazide 12.5 Mg Cap PO 12.5 mg DAILY JENNIFER Administration Sodium Chloride 1,000 mls @ 100 mls/hr 06/12/21 20:31 06/13/21 17:10 Normal Saline IV 100 mls/hr ASDIRECTED JENNIFER Administration Doxycycline Hyclate 100 mg/ 100 mls @ 100 mls/hr 06/13/21 09:00 06/13/21 08:39 Sodium Chloride IV 100 mls/hr Q12H JENNIFER Administration Losartan Potassium 100 mg 06/13/21 09:00 06/13/21 08:38 Losartan 50 Mg Tab PO 100 mg DAILY JENNIFER Administration Methylprednisolone Sodium Succinate 40 mg 06/13/21 07:00 06/13/21 19:35 Methylprednisolone Sodium Succinate 40 Mg/1 Ml Sdv IVPUSH 40 mg Q6H JENNIFER Administration Montelukast Sodium 10 mg 06/13/21 09:00 06/13/21 08:27 Montelukast 10 Mg Tab PO 10 mg DAILY JENNIFER Administration Morphine Sulfate 2 mg 06/12/21 20:31 Morphine 2 Mg/Ml Syringe IVPUSH Q2H PRN Pain (severe 7-10) Nitroglycerin 0.4 mg 06/12/21 20:31 Nitroglycerin 0.4 Mg Tab.Sl SL ASDIRECTED PRN Chest Pain Ondansetron HCl 4 mg 06/12/21 20:31 Ondansetron 4 Mg Tab.Dis PO Q6H PRN Nausea able to take PO Oxycodone HCl 5 mg 06/12/21 20:31 Oxycodone 5 Mg Tab PO Q4H PRN Pain (moderate 4-6) Pantoprazole Sodium 40 mg 06/12/21 21:00 06/12/21 21:17 Pantoprazole 40 Mg Vial IV 40 mg BEDTIME JENNIFER Administration Potassium Chloride 10 meq 06/13/21 09:00 06/13/21 08:32 Potassium Chloride 10 Meq Cap.Er PO 10 meq DAILY JENNIFER Administration Discontinued Medications Generic Name Dose Route Start Last Admin Trade Name Stuq PRN Reason Stop Dose Admin Albuterol 2.5 mg 06/12/21 18:13 06/12/21 18:27 Albuterol 0.083% 2.5 Mg/3 Ml Neb Soln NEB 06/12/21 18:14 2.5 mg ONETIME ONE Administration Albuterol/Ipratropium 3 ml 06/12/21 18:00 06/12/21 18:11 Albuterol/Ipratropium 3.0-0.5 Mg/3 Ml Neb Soln NEB 06/12/21 18:01 3 ml ONETIME ONE Administration Azithromycin 500 mg 06/12/21 21:15 06/12/21 21:30 Azithromycin 250 Mg Tab PO 06/12/21 21:16 500 mg ONETIME ONE Administration Carvedilol 6.25 mg 06/12/21 19:08 06/12/21 19:12 Carvedilol 12.5 Mg Tab PO 06/12/21 19:09 6.25 mg ONETIME ONE Administration Carvedilol 6.25 mg 06/12/21 21:15 06/12/21 21:30 Carvedilol 3.125 Mg Tab PO 06/12/21 21:16 6.25 mg ONETIME ONE Administration Furosemide 60 mg 06/12/21 20:31 06/12/21 22:09 Furosemide 40 Mg Tab PO 60 mg DAILY JENNIFER Administration Sodium Chloride 1,000 mls @ 150 mls/hr 06/12/21 18:15 06/12/21 21:15 Normal Saline IV 150 mls/hr ASDIRECTED JENNIFER Administration Doxycycline Hyclate 100 mg/ 100 mls @ 100 mls/hr 06/12/21 20:31 06/12/21 21:14 Sodium Chloride IV 100 mls/hr Q12H JENNIFER Administration Azithromycin 500 mg/ Sodium 250 mls @ 250 mls/hr 06/13/21 07:00 06/13/21 16:33 Chloride IV Not Given Q24H JENNIFER Potassium Chloride 40 meq/ 100 mls @ 25 mls/hr 06/13/21 06:51 Premix IV 06/13/21 10:50 ONETIME ONE Potassium Chloride 20 meq/ 112 mls @ 56 mls/hr 06/13/21 08:00 06/13/21 13:10 Lidocaine HCl 2 ml/ Sodium IV 06/13/21 11:59 56 mls/hr Chloride Q2H JENNIFER Administration Influenza Virus Vaccine 240 mcg 06/12/21 23:45 06/13/21 01:24 Flu Vacc [id number](65yr Up)/Pf 240 Mcg/0.7 Ml Syringe IM 06/12/21 23:46 Not Given .ONCE ONE Influenza Virus Vaccine 240 mcg 06/13/21 09:00 06/13/21 17:11 Flu Vacc [id number](65yr Up)/Pf 240 Mcg/0.7 Ml Syringe IM 06/13/21 09:01 240 mcg .ONCE ONE Administration Methylprednisolone Sodium Succinate Confirm 06/12/21 18:09 06/12/21 18:16 Methylprednisolone Sodium Succinate 125 Mg/2 Ml Sdv Administered 06/12/21 18:10 Not Given Dose 125 mg .ROUTE .STK-MED ONE Methylprednisolone Sodium Succinate 125 mg 06/12/21 18:11 06/12/21 18:15 Methylprednisolone Sodium Succinate 125 Mg/2 Ml Sdv IVPUSH 06/12/21 18:12 125 mg ONETIME ONE Administration Potassium Chloride 40 meq 06/13/21 13:03 Potassium Chloride 20 Meq Tab.Er PO 06/13/21 13:04 ONETIME ONE - Re-Assessments/Exams Free Text/Narrative Re-Assessment/Exam: 06/13/21 19:43 pt was given a albuterol neb ans solumedrol 125 iv push she gradually improved and was able to maintain on 2 liters of o2. She had a chest xray which did not show any infiltrate. Her blood gases did not show that she was retaining co2. Departure - Departure Time of Disposition: 07:00 Disposition: Admitted As Inpatient 64 Condition: Fair Clinical Impression: Respiratory arrest, Asthma - Discharge Information Sepsis Event Note (ED) - Evaluation Sepsis Screening Result: No Definite Risk
[2021-06-12] MEDS ORDERED: Carvedilol 12.5 MG Tab PO ONE (19:08)
--- NOTE | 2021-06-12 20:06 | CRLCT ---
For Patients: As a result of the Century Cures Act, medical imaging exams and procedure reports are released immediately into your electronic medical record. You may view this report before your referring provider. If you have questions, please contact your health care provider. INDICATION: Not responding normally and respiratory arrest. COMPARISON: CT head 03/27/2021. TECHNIQUE: CT of the head without IV contrast. Coronal and sagittal reconstructions are provided. FINDINGS: No intracranial hemorrhage, mass effect, or evidence of acute infarct. No midline shift. No abnormal extra-axial fluid collections. Mild generalized cerebral and cerebellar volume loss. Normal caliber metric you`re system. Mild chronic small vessel ischemic disease. Intracranial vascular calcifications. Orbits and extraocular muscles are symmetric. The paranasal sinuses and mastoid air cells are clear. No acute fracture identified. Soft tissues are unremarkable. IMPRESSION: : No acute intracranial findings. Please note that all CT scans at this facility use dose modulation, iterative reconstruction, and/or weight-based dosing when appropriate to reduce radiation dose to as low as reasonably achievable. Dictated by Edwige Chadwick MD @ 06/12/2021 8:04:47 PM (Electronically Signed)
[2021-06-12] MEDS ORDERED: oxyCODONE 5 MG Tab PO PRN (20:31)
[2021-06-12] MEDS ORDERED: Calcium Carbonate 500 MG Tab.Chew PO PRN (20:31)
[2021-06-12] MEDS ORDERED: Doxycycline 100 MG in Sodium Chloride 0.9% 100 ML IV SCH (20:31)
[2021-06-12] MEDS ORDERED: Furosemide 40 MG Tab PO SCH (20:31)
[2021-06-12] MEDS ORDERED: Bisacodyl 5 MG Tab PO PRN (20:31)
[2021-06-12] MEDS ORDERED: Ondansetron 4 MG Tab.DIS PO PRN (20:31)
[2021-06-12] MEDS ORDERED: Nitroglycerin 0.4 MG Tab.SL SL PRN (20:31)
[2021-06-12] MEDS ORDERED: Docusate Sodium 100 MG Cap PO PRN (20:31)
[2021-06-12] MEDS ORDERED: Morphine 2 MG/ML SYRINGE IVPUSH PRN (20:31)
[2021-06-12] MEDS ORDERED: Azithromycin 250 MG Tab PO ONE (21:15)
[2021-06-12] MEDS ORDERED: Carvedilol 3.125 MG Tab PO ONE (21:15)
[2021-06-12] MEDS: Albuterol/Ipratropium 3.0-0.5 MG/3 ML Neb Soln NEB SCH (21:17)
[2021-06-12] MEDS: Pantoprazole 40 MG Vial IV SCH (21:17)
[2021-06-12] MEDS: Enoxaparin 30 MG/0.3 ML Syringe SUBCUT SCH (21:17)
[2021-06-12] MEDS ORDERED: Albuterol/Ipratropium 3.0-0.5 MG/3 ML Neb Soln NEB SCH (22:00)
[2021-06-12] MEDS: amLODIPine 5 MG Tab PO SCH (22:09)
[2021-06-13] MEDS: Albuterol 0.083% 2.5 MG/3 ML Neb Soln NEB PRN ×3 (00:24→19:06)
[2021-06-13] MEDS: Sodium Chloride 0.9% 1,000 ML IV SCH ×2 (05:04→17:10)
--- NOTE | 2021-06-13 06:30 | PCM.HP.2 ---
H&P History of Present Illness - General Date of Service: 06/12/21 Admit Problem/Dx: Admission Diagnosis/Problem Admission Diagnosis/Problem COPD, Moderate chronic obstructive pulmonary disease Source of Information: Patient, EMS, EMS Notes Reviewed, Provider, RN History Limitations: Reports: Respiratory Distress - History of Present Illness Initial Comments - Free Text/Narative: chief complaint: shortness of breath Copy from ER Note pt has had some respiratory problems for the past 2-3 days. She was taking a neb and she had a respiratory arrest at home. When the ambulance got there she was just starting to breath on her own. They did bag her for a period of time. She was breathing on her own when she arrived. Her sats were in the 80s and she had o2 at 10 liters and and she was still struggling. She did seem mildly confused on arrival. In Emergency room given Albuterol neb, Duo neb, Coreg 6.25 mg and Solumedrol 125 mg IV. After given all medication and monitor, Mrs. Luna responded favorably, able to recall events leading up to the respiratory event. Vital signs 97.2-89-18 B/P 200/68. She is breathing on her own with mild distress. will plan admission for further care and treatment. Mrs. Luna agrees with plan of care. Onset of Symptoms: Reports: Today Symptom Onset Date: 06/12/21 Symptom Onset Time: 17:30 Duration of Symptoms: Reports: Improving (since arrival to ER, has been given medication and oxygen- improved.) Location: Reports: Generalized Severity: Severe Improves with: Reports: Medication (oxygen and nebulizer) Worsens with: Reports: None Context: Reports: Other (acute on chronic COPD) Associated Symptoms: Reports: No Other Symptoms - Related Data Allergies/Adverse Reactions: Allergies Allergy/AdvReac Type Severity Reaction Status Date / Time Sulfa (Sulfonamide Allergy Mouth Sores Verified 06/12/21 21:27 Antibiotics) Home Medications: Home Meds Albuterol Sulfate [Proair Hfa] 2 puff IH Q6H PRN 08/21/14 [History] Albuterol/Ipratropium [DuoNeb 3.0-0.5 MG/3 ML] 1 ampule IH Q6H PRN 08/21/14 [History] Aspirin [Halfprin] 81 mg PO DAILY 08/21/14 [History] Calcium Carbonate [Tums] 500 mg PO ASDIRECTED PRN 08/21/14 [History] Fluticasone Propion/Salmeterol [Advair 250-50 Diskus] 1 puff IH BID 08/21/14 [History] Furosemide 60 mg PO DAILY 08/21/14 [History] Losartan [Cozaar] 100 mg PO DAILY 08/21/14 [History] Montelukast Sodium [Singulair] 10 mg PO DAILY 08/21/14 [History] Nitroglycerin 0.4 mg SL ASDIRECTED PRN 08/21/14 [History] atorvaSTATin [Lipitor] 60 mg PO DAILY 08/21/14 [History] hydroCHLOROthiazide [Hydrochlorothiazide] 12.5 mg PO DAILY 06/22/17 [History] amLODIPine Besylate [Amlodipine Besylate] 5 mg PO DAILY 01/16/18 [History] Escitalopram [Lexapro] 10 mg PO DAILY 04/21/20 [History] Potassium Chloride [Klor-Con M10] 10 meq PO DAILY 12/25/20 [History] Umeclidinium [place] [Incruse Ellipta*] 1 inhalation PO DAILY 03/28/21 [History] carvediloL [Carvedilol] 6.25 mg PO BIDAC 03/28/21 [History] Azithromycin 500 mg PO BEDTIME #3 tablet 03/30/21 [Rx] Cefdinir 300 mg PO BID #6 capsule 03/30/21 [Rx] Past Medical History HEENT History: Reports: Hard of Hearing, Impaired Vision Cardiovascular History: Reports: Bypass, CAD, High Cholesterol, Hypertension, [place], SOB on Exertion Respiratory History: Reports: Asthma, COPD, Pneumonia, Recurrent, SOB Other Respiratory History: emphasema Gastrointestinal History: Reports: None Genitourinary History: Reports: Chronic Renal Insuffiency, Urinary Incontinence Other Genitourinary History: renal artery stenosis [employer] History: Reports: Musculoskeletal History: Reports: Arthritis, Fracture Other Musculoskeletal History: osteopenia Psychiatric History: Reports: Anxiety, Depression - Infectious Disease History Infectious Disease History: Reports: Chicken Pox, Influenza, Measles, Pertussis (Whooping Cough) - Past Surgical History Head Surgeries/Procedures: Reports: None HEENT Surgical History: Reports: Tonsillectomy Cardiovascular Surgical History: Reports: Carotid Stents, Coronary Artery Bypass, Coronary Artery Stent Respiratory Surgical History: Reports: None GI Surgical History: Reports: None Female Surgical History: Reports: None Musculoskeletal Surgical History: Reports: None Dermatological Surgical History: Reports: None Social & Family History - Family History Family Medical History: No Pertinent Family History - Tobacco Use Tobacco Use Status *Q: Never Tobacco User - Caffeine Use Caffeine Use: Reports: Coffee - Recreational Drug Use Recreational Drug Use: No - Living Situation & Occupation Living situation: Reports: , with Family (lives with Leno and Daughter in [place], [place].) H&P Review of Systems - Review of Systems: Review Of Systems: See Below General: Reports: Other HEENT: Reports: Glasses Pulmonary: Reports: Shortness of Breath, Other (has been sick for the 3 to 4 days) Cardiovascular: Reports: No Symptoms Gastrointestinal: Reports: No Symptoms Genitourinary: Reports: No Symptoms Musculoskeletal: Reports: No Symptoms Skin: Reports: No Symptoms Psychiatric: Reports: No Symptoms Neurological: Reports: No Symptoms Hematologic/Lymphatic: Reports: No Symptoms Immunologic: Reports: No Symptoms Exam - Exam Exam: See Below - Vital Signs Vital Signs: Last Vital Signs Temp 96.8 F L 06/13/21 02:00 Pulse 69 06/13/21 02:00 Resp 18 06/13/21 02:00 BP 131/51 L 06/13/21 02:00 Pulse Ox 100 06/13/21 02:00 Weight: 142 lb 13.753 oz - Exam Quality Assessment: Supplemental Oxygen, DVT Prophylaxis General: Alert, Oriented, Cooperative, Mild Distress (able to speak in complete sentence. ) HEENT: PERRLA, Hearing Intact, Mucosa Moist & [place], Nares Patent, Normal Nasal S eptum, Posterior Pharynx Clear, Conjunctiva Clear, EOMI, EACs Clear, TMs Clear Neck: Supple, Trachea Midline, 2 Lungs: Clear to Auscultation, Decreased Breath Sounds Cardiovascular: Regular Rate, Regular Rhythm, Normal S1, Normal S2 GI/Abdominal Exam: Normal Bowel Sounds, Soft, Non-Tender, No Distention (Female) Exam: Deferred Rectal (Female) Exam: Deferred Back Exam: Normal Inspection, Full Range of Motion Extremities: Normal Inspection, Normal Range of Motion, Non-Tender, No Pedal Edema, Normal Capillary Refill Peripheral Pulses: 2+: Radial (L), Radial (R), Dorsalis Pedis (L), Dorsalis Pedis (R) Skin: Ecchymosis (bruising to right hand from IV attempts) Neurological: Reflexes Equal Bilateral, Strength Equal Bilateral (weak but equal strength), Normal Speech, Normal Tone, Sensation Intact Neuro Extensive - Mental Status: Alert, Oriented x3, Normal Mood/Affect, Normal Cognition, Memory Intact Neuro Extensive - Motor, Sensory, Reflexes: Normal Reflexes Psychiatric: Alert, Normal Affect, Normal Mood - Patient Data Lab Results Last 24 hrs: Laboratory Results - last 24 hr 06/12/21 06/12/21 06/12/21 Range/Units 18:05 18:05 18:05 WBC 13.6 H (4.5-11.0) K/uL RBC 4.09 (3.30-5.50) M/uL Hgb 12.9 (12.0-15.0) g/dL Hct 40.7 (36.0-48.0) % MCV 100 H (80-98) fL MCH 32 H (27-31) pg MCHC 32 (32-36) % Plt Count 322 (150-400) K/uL Neut % (Auto) (36-66) % Lymph % (Auto) (24-44) % [place] % (Auto) (2-6) % Eos % (Auto) (2-4) % Baso % (Auto) (0-1) % D-Dimer, Quantitative > 87411.00 H (0.0-500.0) ng/mL Puncture Site ABG pH (7.350-7.450) ABG pCO2 (35.0-42.0) mmHg ABG pO2 (75.0-100.0) mmHg ABG HCO3 (22.0-26.0) mmol/L ABG Total CO2 (21.0-25.0) mmol/L ABG O2 Saturation (95.0-98.0) % ABG O2 Content (15.0-23.0) %vol ABG Base Excess mm/L ABG Hemoglobin (12.0-16.0) g/dL ABG Oxyhemoglobin % ABG Carboxyhemoglobin (0.0-1.6) % ABG Methemoglobin % Jens Test O2 Delivery Device Oxygen Flow Rate L Sodium (140-148) mmol/L Potassium (3.6-5.2) mmol/L Chloride (100-108) mmol/L Carbon Dioxide (21-32) mmol/L Anion Gap (5.0-14.0) mmol/L BUN (7-18) mg/dL Creatinine (0.6-1.0) mg/dL Est Cr Clr Drug Dosing Estimated GFR (MDRD) (>60) Glucose (74-106) mg/dL Calcium (8.5-10.1) mg/dL Total Bilirubin (0.2-1.0) mg/dL AST (15-37) U/L ALT (12-78) U/L Alkaline Phosphatase (46-116) U/L Troponin I < 0.017 (0.000-0.056) ng/mL NT-Pro-B Natriuret Pep (5-450) pg/mL Total Protein (6.4-8.2) g/dL Albumin (3.4-5.0) g/dL Globulin (2.3-3.5) g/dL Albumin/Globulin Ratio (1.2-2.2) Urine Color (YELLOW) Urine Appearance (CLEAR) Urine pH (5.0-8.0) Ur Specific [place] (1.008-1.030) Urine Protein (NEGATIVE) mg/dL Urine Glucose (UA) (NEGATIVE) mg/dL Urine Ketones (NEGATIVE) mg/dL Urine Occult Blood (NEGATIVE) Urine Nitrite (NEGATIVE) Urine Bilirubin (NEGATIVE) Urine Urobilinogen (0.2-1.0) EU/dL Ur Leukocyte Esterase (NEGATIVE) Urine RBC (0-5) Urine WBC (0-5) Ur Epithelial Cells Amorphous Sediment Urine Bacteria Urine Mucus SARS-CoV-2 RNA (MIKAELA) (NEGATIVE) 06/12/21 06/12/21 06/12/21 Range/Units 18:10 18:12 18:42 WBC (4.5-11.0) K/uL RBC (3.30-5.50) M/uL Hgb (12.0-15.0) g/dL Hct (36.0-48.0) % MCV (80-98) fL MCH (27-31) pg MCHC (32-36) % Plt Count (150-400) K/uL Neut % (Auto) (36-66) % Lymph % (Auto) (24-44) % [place] % (Auto) (2-6) % Eos % (Auto) (2-4) % Baso % (Auto) (0-1) % D-Dimer, Quantitative (0.0-500.0) ng/mL Puncture Site Rt radial ABG pH 7.231 L (7.350-7.450) ABG pCO2 67.6 H (35.0-42.0) mmHg ABG pO2 67.4 L (75.0-100.0) mmHg ABG HCO3 27.4 H (22.0-26.0) mmol/L ABG Total CO2 25.6 H (21.0-25.0) mmol/L ABG O2 Saturation 87.9 L (95.0-98.0) % ABG O2 Content 15.7 (15.0-23.0) %vol ABG Base Excess -1.3 mm/L ABG Hemoglobin 12.9 (12.0-16.0) g/dL ABG Oxyhemoglobin 86.7 % ABG Carboxyhemoglobin 0.6 (0.0-1.6) % ABG Methemoglobin 0.8 % Ejns Test Pass O2 Delivery Device Non rebr mask Oxygen Flow Rate 10.0 L Sodium 136 L (140-148) mmol/L Potassium 3.5 L (3.6-5.2) mmol/L Chloride 97 L (100-108) mmol/L Carbon Dioxide 31 (21-32) mmol/L Anion Gap 11.5 (5.0-14.0) mmol/L BUN 21 H D (7-18) mg/dL Creatinine 1.0 (0.6-1.0) mg/dL Est Cr Clr Drug Dosing TNP Estimated GFR (MDRD) 52 L (>60) Glucose 169 H (74-106) mg/dL Calcium 9.1 (8.5-10.1) mg/dL Total Bilirubin 0.3 (0.2-1.0) mg/dL AST 39 H D (15-37) U/L ALT 30 (12-78) U/L Alkaline Phosphatase 69 (46-116) U/L Troponin I (0.000-0.056) ng/mL NT-Pro-B Natriuret Pep (5-450) pg/mL Total Protein 6.8 (6.4-8.2) g/dL Albumin 3.6 (3.4-5.0) g/dL Globulin 3.2 (2.3-3.5) g/dL Albumin/Globulin Ratio 1.1 L (1.2-2.2) Urine Color (YELLOW) Urine Appearance (CLEAR) Urine pH (5.0-8.0) Ur Specific [place] (1.008-1.030) Urine Protein (NEGATIVE) mg/dL Urine Glucose (UA) (NEGATIVE) mg/dL Urine Ketones (NEGATIVE) mg/dL Urine Occult Blood (NEGATIVE) Urine Nitrite (NEGATIVE) Urine Bilirubin (NEGATIVE) Urine Urobilinogen (0.2-1.0) EU/dL Ur Leukocyte Esterase (NEGATIVE) Urine RBC (0-5) Urine WBC (0-5) Ur Epithelial Cells Amorphous Sediment Urine Bacteria Urine Mucus SARS-CoV-2 RNA (MIKAELA) Negative (NEGATIVE) 06/12/21 06/13/21 06/13/21 Range/Units 18:54 02:34 04:30 WBC 5.6 (4.5-11.0) K/uL RBC 3.75 (3.30-5.50) M/uL Hgb 11.8 L (12.0-15.0) g/dL Hct 37.3 (36.0-48.0) % MCV 100 H (80-98) fL MCH 32 H (27-31) pg MCHC 32 (32-36) % Plt Count 270 (150-400) K/uL Neut % (Auto) 85.1 H (36-66) % Lymph % (Auto) 13.3 L (24-44) % [place] % (Auto) 1.6 L (2-6) % Eos % (Auto) 0.0 L (2-4) % Baso % (Auto) 0.0 (0-1) % D-Dimer, Quantitative (0.0-500.0) ng/mL Puncture Site ABG pH (7.350-7.450) ABG pCO2 (35.0-42.0) mmHg ABG pO2 (75.0-100.0) mmHg ABG HCO3 (22.0-26.0) mmol/L ABG Total CO2 (21.0-25.0) mmol/L ABG O2 Saturation (95.0-98.0) % ABG O2 Content (15.0-23.0) %vol ABG Base Excess mm/L ABG Hemoglobin (12.0-16.0) g/dL ABG Oxyhemoglobin % ABG Carboxyhemoglobin (0.0-1.6) % ABG Methemoglobin % Jens Test O2 Delivery Device Oxygen Flow Rate L Sodium (140-148) mmol/L Potassium (3.6-5.2) mmol/L Chloride (100-108) mmol/L Carbon Dioxide (21-32) mmol/L Anion Gap (5.0-14.0) mmol/L BUN (7-18) mg/dL Creatinine (0.6-1.0) mg/dL Est Cr Clr Drug Dosing Estimated GFR (MDRD) (>60) Glucose (74-106) mg/dL Calcium (8.5-10.1) mg/dL Total Bilirubin (0.2-1.0) mg/dL AST (15-37) U/L ALT (12-78) U/L Alkaline Phosphatase (46-116) U/L Troponin I (0.000-0.056) ng/mL NT-Pro-B Natriuret Pep 1467 H (5-450) pg/mL Total Protein (6.4-8.2) g/dL Albumin (3.4-5.0) g/dL Globulin (2.3-3.5) g/dL Albumin/Globulin Ratio (1.2-2.2) Urine Color Yellow (YELLOW) Urine Appearance Clear (CLEAR) Urine pH 5.0 (5.0-8.0) Ur Specific [place] 1.020 (1.008-1.030) Urine Protein Negative (NEGATIVE) mg/dL Urine Glucose (UA) Negative (NEGATIVE) mg/dL Urine Ketones Negative (NEGATIVE) mg/dL Urine Occult Blood Negative (NEGATIVE) Urine Nitrite Negative (NEGATIVE) Urine Bilirubin Negative (NEGATIVE) Urine Urobilinogen 0.2 (0.2-1.0) EU/dL Ur Leukocyte Esterase Negative (NEGATIVE) Urine RBC 0-5 (0-5) Urine WBC 0-5 (0-5) Ur Epithelial Cells Rare Amorphous Sediment Not seen Urine Bacteria Few Urine Mucus Not seen SARS-CoV-2 RNA (MIKAELA) (NEGATIVE) 06/13/21 Range/Units 04:30 WBC (4.5-11.0) K/uL RBC (3.30-5.50) M/uL Hgb (12.0-15.0) g/dL Hct (36.0-48.0) % MCV (80-98) fL MCH (27-31) pg MCHC (32-36) % Plt Count (150-400) K/uL Neut % (Auto) (36-66) % Lymph % (Auto) (24-44) % [place] % (Auto) (2-6) % Eos % (Auto) (2-4) % Baso % (Auto) (0-1) % D-Dimer, Quantitative (0.0-500.0) ng/mL Puncture Site ABG pH (7.350-7.450) ABG pCO2 (35.0-42.0) mmHg ABG pO2 (75.0-100.0) mmHg ABG HCO3 (22.0-26.0) mmol/L ABG Total CO2 (21.0-25.0) mmol/L ABG O2 Saturation (95.0-98.0) % ABG O2 Content (15.0-23.0) %vol ABG Base Excess mm/L ABG Hemoglobin (12.0-16.0) g/dL ABG Oxyhemoglobin % ABG Carboxyhemoglobin (0.0-1.6) % ABG Methemoglobin % Jens Test O2 Delivery Device Oxygen Flow Rate L Sodium 138 L (140-148) mmol/L Potassium 3.1 L (3.6-5.2) mmol/L Chloride 100 (100-108) mmol/L Carbon Dioxide 30 (21-32) mmol/L Anion Gap 11.1 (5.0-14.0) mmol/L BUN 17 (7-18) mg/dL Creatinine 0.8 (0.6-1.0) mg/dL Est Cr Clr Drug Dosing 35.59 Estimated GFR (MDRD) > 60 (>60) Glucose 147 H (74-106) mg/dL Calcium 7.8 L (8.5-10.1) mg/dL Total Bilirubin (0.2-1.0) mg/dL AST (15-37) U/L ALT (12-78) U/L Alkaline Phosphatase (46-116) U/L Troponin I (0.000-0.056) ng/mL NT-Pro-B Natriuret Pep (5-450) pg/mL Total Protein (6.4-8.2) g/dL Albumin (3.4-5.0) g/dL Globulin (2.3-3.5) g/dL Albumin/Globulin Ratio (1.2-2.2) Urine Color (YELLOW) Urine Appearance (CLEAR) Urine pH (5.0-8.0) Ur Specific [place] (1.008-1.030) Urine Protein (NEGATIVE) mg/dL Urine Glucose (UA) (NEGATIVE) mg/dL Urine Ketones (NEGATIVE) mg/dL Urine Occult Blood (NEGATIVE) Urine Nitrite (NEGATIVE) Urine Bilirubin (NEGATIVE) Urine Urobilinogen (0.2-1.0) EU/dL Ur Leukocyte Esterase (NEGATIVE) Urine RBC (0-5) Urine WBC (0-5) Ur Epithelial Cells Amorphous Sediment Urine Bacteria Urine Mucus SARS-CoV-2 RNA (MIKAELA) (NEGATIVE) Result Diagrams: 06/13/21 04:30 06/13/21 04:30 Sepsis Event Note - Evaluation Sepsis Screening Result: No Definite Risk - Focused Exam Vital Signs: Vital Signs Temp Pulse Pulse Resp BP BP Pulse Ox 06/13/21 02:00 96.8 F L 69 18 131/51 L 100 06/13/21 01:01 98 06/12/21 22:09 144/55 H 06/12/21 21:30 86 144/55 H 06/12/21 20:54 97.3 F 86 18 144/55 H 97 06/12/21 20:03 81 157/71 H 98 06/12/21 19:47 78 25 H 141/61 H 97 06/12/21 19:12 78 222/63 H 06/12/21 19:00 81 26 H 222/63 H 98 06/12/21 18:46 97.2 F 89 28 H 200/68 H 98 06/12/21 18:32 89 18 200/68 H 99 - Problem List (1) COPD with acute exacerbation SNOMED Code(s): 826109573 ICD Code: J44.1 - CHRONIC OBSTRUCTIVE PULMONARY DISEASE W (ACUTE) EXACERBATION Status: Acute Priority: High Current Visit: Yes (2) Congestive heart failure SNOMED Code(s): 42992546 ICD Code: I50.9 - HEART FAILURE, UNSPECIFIED Status: Acute Priority: High Current Visit: Yes (3) Hypertension SNOMED Code(s): 19600481 ICD Code: I10 - ESSENTIAL (PRIMARY) HYPERTENSION Status: Chronic Priority: High Current Visit: Yes Problem Details: Unable to give PO medications while patient is on Bipap, patient may require these as IV medications, but currently BP is stable, so will hold until needed. Qualifiers: Hypertension type: primary hypertension Qualified Code(s): I10 - Essential (primary) hypertension (4) Hypokalemia SNOMED Code(s): 71748052 ICD Code: E87.6 - HYPOKALEMIA Status: Acute Priority: High Current Visit: Yes Problem List Initiated/Reviewed/Updated: Yes Orders Last 24hrs: Active Orders 24 hr Category Date Time Status Cardiac Monitoring [RC] CONTINUOUS Care 06/12/21 20:31 Active Communication Order [RC] ASDIRECTED Care 06/12/21 20:31 Active Intake and Output [RC] QSHIFT Care 06/12/21 20:31 Active Notify Provider Vital Signs [RC] ASDIRECTED Care 06/12/21 20:31 Active Notify Provider [RC] PRN Care 06/12/21 20:31 Active Oxygen Therapy [RC] PRN Care 06/12/21 20:31 Active Pulse Oximetry [RC] CONTINUOUS Care 06/12/21 20:31 Active RT Aerosol Therapy [RC] ASDIRECTED Care 06/12/21 18:14 Active Up With Assistance [RC] ASDIRECTED Care 06/12/21 20:31 Active VTE/DVT Education [RC] Per Unit Routine Care 06/12/21 20:31 Active Vaccine to be Administered/Admin Charge [RC] ASDIRECTED Care 06/12/21 23:53 Active Vital Signs [RC] Q4H Care 06/12/21 20:31 Active Consult to Spiritual Care [CONS] Routine Cons 06/12/21 20:31 Active Regular Diet [DIET] Diet 06/12/21 Dinner Active Chest 1V Frontal [CR] Stat Exams 06/12/21 18:01 Taken CULTURE BLOOD [BC] Urgent Lab 06/12/21 20:55 Received CULTURE BLOOD [BC] Urgent Lab 06/12/21 21:10 Received Acetaminophen [TylenoL] Med 06/12/21 20:31 Active 650 mg PO Q4H PRN Albuterol [Proventil Neb Soln] Med 06/12/21 20:31 Active 2.5 mg NEB Q4H PRN Albuterol/Ipratropium [DuoNeb 3.0-0.5 MG/3 ML] Med 06/12/21 21:00 Active 3 ml NEB QIDRT Azithromycin [Zithromax] Med 06/13/21 21:00 Active 500 mg PO BEDTIME Calcium Carbonate [Tums] Med 06/12/21 20:31 Active 500 mg PO Q4H PRN Docusate Sodium [Colace] Med 06/12/21 20:31 Active 100 mg PO BID PRN Doxycycline [Vibramycin] 100 mg Med 06/12/21 20:31 Active Sodium Chloride 0.9% [Normal Saline] 100 ml IV Q12H Enoxaparin [Lovenox] Med 06/12/21 21:00 Active 30 mg SUBCUT BEDTIME Escitalopram [Lexapro] Med 06/13/21 09:00 Active 10 mg PO DAILY FLU Vacc [id number](65YR UP)/PF [Fluzone High-Dose Quad Med 06/13/21 09:00 Once 2020-] 240 mcg IM .ONCE ONE Furosemide [Lasix] Med 06/12/21 20:31 Active 60 mg PO DAILY Losartan [Cozaar] Med 06/13/21 09:00 Active 100 mg PO DAILY Montelukast [Singulair] Med 06/13/21 09:00 Active 10 mg PO DAILY Morphine Med 06/12/21 20:31 Active 2 mg IVPUSH Q2H PRN Nitroglycerin [Nitrostat] Med 06/12/21 20:31 Active 0.4 mg SL ASDIRECTED PRN Ondansetron [Zofran ODT] Med 06/12/21 20:31 Active 4 mg PO Q6H PRN Pantoprazole [ProTONIX IV] Med 06/12/21 21:00 Active 40 mg IV BEDTIME Potassium Chloride Med 06/13/21 09:00 Active 10 meq PO DAILY Sodium Chloride 0.9% [Normal Saline] 1,000 ml Med 06/12/21 18:15 Active IV ASDIRECTED Sodium Chloride 0.9% [Normal Saline] 1,000 ml Med 06/12/21 20:31 Active IV ASDIRECTED amLODIPine [Norvasc] Med 06/12/21 20:31 Active 5 mg PO DAILY atorvaSTATin [Lipitor] Med 06/13/21 09:00 Active 60 mg PO DAILY bisacodyL [Dulcolax] Med 06/12/21 20:31 Active 5 mg PO DAILY PRN carvediloL [Coreg] Med 06/13/21 07:30 Active 6.25 mg PO BIDAC hydroCHLOROthiazide Med 06/13/21 09:00 Active 12.5 mg PO DAILY oxyCODONE Med 06/12/21 20:31 Active 5 mg PO Q4H PRN Blood Culture x2 Reflex Set [OM.PC] Urgent Oth 06/12/21 20:31 Ordered Resuscitation Status Routine Resus Stat 06/12/21 20:08 Ordered EKG 12 Lead [EK] Routine Ther 06/12/21 18:12 Ordered Medication Orders Acetaminophen (Acetaminophen 325 Mg Tab) 650 mg PO Q4H PRN PRN Reason: Pain (Mild 1-3)/fever Albuterol (Albuterol 0.083% 2.5 Mg/3 Ml Neb Soln) 2.5 mg NEB Q4H PRN PRN Reason: Shortness Of Breath/wheezing Last Admin: 06/13/21 05:05 Dose: 2.5 mg Documented by: Admin: 06/13/21 00:24 Dose: 2.5 mg Documented by: BEVERLY Albuterol/Ipratropium (Albuterol/Ipratropium 3.0-0.5 Mg/3 Ml Neb Soln) 3 ml NEB QIDRT [facility] Last Admin: 06/12/21 21:17 Dose: 3 ml Documented by: BEVERLY Amlodipine Besylate (Amlodipine 5 Mg Tab) 5 mg PO DAILY [facility] Last Admin: 06/12/21 22:09 Dose: 5 mg Documented by: BEVERLY Atorvastatin Calcium (Atorvastatin 20 Mg Tab) 60 mg PO DAILY [facility] Azithromycin (Azithromycin 250 Mg Tab) 500 mg PO BEDTIME [facility] Bisacodyl (Bisacodyl 5 Mg Tab) 5 mg PO DAILY PRN PRN Reason: Constipation Calcium Carbonate/Glycine (Calcium Carbonate 500 Mg Tab.Chew) 500 mg PO Q4H PRN PRN Reason: Heartburn Carvedilol (Carvedilol 3.125 Mg Tab) 6.25 mg PO BIDAC [facility] Docusate Sodium (Docusate Sodium 100 Mg Cap) 100 mg PO BID PRN PRN Reason: Constipation Enoxaparin Sodium (Enoxaparin 30 Mg/0.3 Ml Syringe) 30 mg SUBCUT BEDTIME [facility] Last Admin: 06/12/21 21:17 Dose: 30 mg Documented by: BEVERLY Escitalopram Oxalate (Escitalopram 10 Mg Tab) 10 mg PO DAILY [facility] Furosemide (Furosemide 40 Mg Tab) 60 mg PO DAILY [facility] Last Admin: 06/12/21 22:09 Dose: 60 mg Documented by: BEVERLY Hydrochlorothiazide (Hydrochlorothiazide 12.5 Mg Cap) 12.5 mg PO DAILY [facility] Sodium Chloride (Normal Saline) 1,000 mls @ 150 mls/hr IV ASDIRECTED [facility] Last Admin: 06/12/21 21:15 Dose: 150 mls/hr Documented by: Infusion: 06/12/21 21:15 Dose: 150 mls/hr Documented by: Admin: 06/12/21 18:20 Dose: 150 mls/hr Documented by: MAKENNA Sodium Chloride (Normal Saline) 1,000 mls @ 100 mls/hr IV ASDIRECTED [facility] Last Admin: 06/13/21 05:04 Dose: 100 mls/hr Documented by: KELVIN Doxycycline Hyclate 100 mg/ (Sodium Chloride) 100 mls @ 100 mls/hr IV Q12H [facility] Last Admin: 06/12/21 21:14 Dose: 100 mls/hr Documented by: BEVERLY Influenza Virus Vaccine (Flu Vacc [id number](65yr Up)/Pf 240 Mcg/0.7 Ml Syringe) 240 mcg IM .ONCE ONE Stop: 06/13/21 09:01 Losartan Potassium (Losartan 50 Mg Tab) 100 mg PO DAILY [facility] Montelukast Sodium (Montelukast 10 Mg Tab) 10 mg PO DAILY [facility] Morphine Sulfate (Morphine 2 Mg/Ml Syringe) 2 mg IVPUSH Q2H PRN PRN Reason: Pain (severe 7-10) Nitroglycerin (Nitroglycerin 0.4 Mg Tab.Sl) 0.4 mg SL ASDIRECTED PRN PRN Reason: Chest Pain Ondansetron HCl (Ondansetron 4 Mg Tab.Dis) 4 mg PO Q6H PRN PRN Reason: Nausea able to take PO Oxycodone HCl (Oxycodone 5 Mg Tab) 5 mg PO Q4H PRN PRN Reason: Pain (moderate 4-6) Pantoprazole Sodium (Pantoprazole 40 Mg Vial) 40 mg IV BEDTIME [facility] Last Admin: 06/12/21 21:17 Dose: 40 mg Documented by: BEVERLY Potassium Chloride (Potassium Chloride 10 Meq Cap.Er) 10 meq PO DAILY [facility] Assessment/Plan Comment:: Assessment/Plan Comment:: ASSESSMENT AND PLAN OF CARE- COPD WITH ACUTE EXACERBATION, CHF, HYPERTENSION COPD with acute exacerbation Copy from ER Note- arrival via EMS [place] pt has had some respiratory problems for the past 2-3 days. She was taking a neb and she had a respiratory arrest at home. When the ambulance got there she was just starting to breath on her own. They did bag her for a period of time. She was breathing on her own when she arrived. Her sats were in the 80s and she had o2 at 10 liters and and she was still struggling. She did seem mildly confused on arrival. In Emergency room given Albuterol neb, Duo neb, Coreg 6.25 mg and Solu-medrol 125 mg IV. After given all medication and monitored, Mrs. Luna responded favorably, able to recall events leading up to the respiratory event. Vital signs 97.2-89-18 B/P 200/68. labs wbc 13.6, hgb 12.9, hct 40.7, plt 322, chemistries Na 136, K+3.5, cl 97, anion gap 11.5, bun 21, cr 1.0, glucose 169 co2 31, ABG abnormal ph 7.2, head CT negative for acute event. chest xray no acute infiltrates. She is breathing on her own with mild distress. will plan admission for further care and treatment. Mrs. Luna agrees with plan of care. COPD with acute exacerbation -Admit to [address] [place] [address] for further monitoring -IV Fluids for rehydration NS at 100 ml/hr -IV Antibiotic; Doxy 1 gram IV every 12 hours -IV Zithromax 500mg every 24 hours -oxygen to keep sats greater than 95% -IV Solumedrol 40 mg every 6 hours -schedule Duo nebs every 6 hours, Albuterol nebs every 4 hours prn -Advise to notify nurses of any chest pain or other symptoms -blood cultures x2 pending -Covid -19 test negative -And a.m. labs: CBC, BMP Congestive Heart Failure -monitor I & O -continue outpatient medication -Telemetry overnight Hypertension -monitor blood pressure -continue outpatient medication Hypokalemia -Potassium replacement IV 40 meq -lab Potassium check at 1300 Maintenance issues -Orders home meds: chronic medication -Nutrition: regular diet -Anderson catheter -not indicated at this time -DVT - Lovenox 30 mg subcut daily -PPI - IV Protonix 40mg daily CODE STATUS: DNR/DNI Admission status: Admit to [address] [place] [address] Admission justification. This patient will be admitted for inpatient services and is medically appropriate meeting medical necessity for inpatient admission as outlined in my documentation. I reasonably expect the patient will require inpatient services that span. Time over 2 midnights. I reasonably expect this patient to be discharged or transferred within 96 hours after admission to the critical [facility]. Disposition: home with family Primary care provider: not stated Hospitalist: Dr. Albarado - Mortality Measure Prognosis:: Good - Mortality Measure Prognosis:: Good
[2021-06-13] MEDS ORDERED: Potassium Chloride Riders 40 MEQ in Premix Bag 1 BAG IV ONE (06:51)
[2021-06-13] MEDS ORDERED: Azithromycin 500 MG in Sodium Chloride 0.9% 250 ML IV SCH (07:00)
[2021-06-13] MEDS: Albuterol/Ipratropium 3.0-0.5 MG/3 ML Neb Soln NEB SCH ×4 (07:03→20:36)
[2021-06-13] MEDS: methylPREDNISolone Sodium Succinate 40 MG/1 ML SDV IVPUSH SCH ×3 (08:03→19:35)
[2021-06-13] MEDS: Montelukast 10 MG Tab PO SCH (08:27)
[2021-06-13] MEDS: Carvedilol 3.125 MG Tab PO SCH ×2 (08:29→17:10)
[2021-06-13] MEDS: Hydrochlorothiazide 12.5 MG Cap PO SCH (08:29)
[2021-06-13] MEDS: Escitalopram 10 MG Tab PO SCH (08:30)
[2021-06-13] MEDS: amLODIPine 5 MG Tab PO SCH (08:31)
[2021-06-13] MEDS: Potassium Chloride 10 MEQ Cap.ER PO SCH (08:32)
[2021-06-13] MEDS: Losartan 50 MG Tab PO SCH (08:38)
[2021-06-13] MEDS: Doxycycline 100 MG in Sodium Chloride 0.9% 100 ML IV SCH ×2 (08:39→20:32)
[2021-06-13] MEDS: atorvaSTATin 20 MG Tab PO SCH (08:39)
--- NOTE | 2021-06-13 09:05 | CR ---
CHEST: Portable 06/12/2021 at 6:21 PM CLINICAL HISTORY:Respiratory arrest COMPARISON:06/02/2021 FINDINGS: Patient has had previous sternotomy. Heart size and pulmonary vascularity are normal. Lungs are mildly hyperaerated. No infiltrates are seen. There are atherosclerotic changes in the aorta. Impression: No acute pulmonary process Mild hyperaeration Previous sternotomy.
[2021-06-13] MEDS: Potassium Chloride 20 MEQ, Lidocaine 1% 2 ML in Sodium Chloride 0.9% 100 ML IV SCH ×2 (10:24→13:10)
[2021-06-13] MEDS ORDERED: Potassium Chloride 20 MEQ Tab.ER PO ONE (13:03)
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
[2021-06-13] MEDS: Acetaminophen 325 MG Tab PO PRN (19:38)
[2021-06-13] MEDS: Pantoprazole 40 MG Vial IV SCH (20:29)
[2021-06-13] MEDS: Enoxaparin 30 MG/0.3 ML Syringe SUBCUT SCH (20:29)
[2021-06-13] MEDS: Azithromycin 250 MG Tab PO SCH (20:30)
[2021-06-14] MEDS: methylPREDNISolone Sodium Succinate 40 MG/1 ML SDV IVPUSH SCH ×4 (00:49→19:33)
[2021-06-14] MEDS: Albuterol 0.083% 2.5 MG/3 ML Neb Soln NEB PRN ×3 (01:42→19:38)
[2021-06-14] MEDS: Acetaminophen 325 MG Tab PO PRN ×2 (01:50→19:34)
[2021-06-14] MEDS: Albuterol/Ipratropium 3.0-0.5 MG/3 ML Neb Soln NEB SCH ×4 (06:59→21:38)
[2021-06-14] MEDS: atorvaSTATin 20 MG Tab PO SCH (08:44)
[2021-06-14] MEDS: Potassium Chloride 10 MEQ Cap.ER PO SCH (08:44)
[2021-06-14] MEDS: Montelukast 10 MG Tab PO SCH (08:45)
[2021-06-14] MEDS: Hydrochlorothiazide 12.5 MG Cap PO SCH (08:46)
[2021-06-14] MEDS: Carvedilol 3.125 MG Tab PO SCH ×2 (08:46→17:05)
[2021-06-14] MEDS: Escitalopram 10 MG Tab PO SCH (08:48)
[2021-06-14] MEDS: Losartan 50 MG Tab PO SCH (08:48)
[2021-06-14] MEDS: amLODIPine 5 MG Tab PO SCH (08:49)
[2021-06-14] MEDS: Doxycycline 100 MG in Sodium Chloride 0.9% 100 ML IV SCH ×2 (08:53→21:38)
[2021-06-14] MEDS ORDERED: Calcium Gluconate 10% 1 GM/10 ML SDV IVPUSH ONE (09:21)
[2021-06-14] MEDS ORDERED: Calcium Gluconate 1 GM in Sodium Chloride 0.9% 100 ML IV ONE (10:30)
[2021-06-14] MEDS ORDERED: Potassium Chloride 20 MEQ, Lidocaine 1% 2 ML in Sodium Chloride 0.9% 100 ML IV ONE (11:30)
[2021-06-14] MEDS ORDERED: Sodium Chloride 0.9% 10 ML Syringe FLUSH PRN (16:29)
--- NOTE | 2021-06-14 17:55 | PCM.PN ---
- General Info Date of Service: 06/14/21 Admission Dx/Problem (Free Text): Admission Diagnosis/Problem Admission Diagnosis/Problem COPD, Moderate chronic obstructive pulmonary disease Subjective Update: Ms. Sanches is doing well today she is developing a little bit of edema in the lower extremities so her fluids have been stopped. She is not having any difficulty breathing and is no longer requiring oxygen. She will likely be able to go home tomorrow - Review of Systems General: Reports: No Symptoms HEENT: Reports: No Symptoms Pulmonary: Reports: No Symptoms Cardiovascular: Reports: Edema Gastrointestinal: Reports: No Symptoms Genitourinary: Reports: No Symptoms Musculoskeletal: Reports: No Symptoms Skin: Reports: No Symptoms Neurological: Reports: No Symptoms Psychiatric: Reports: No Symptoms - Patient Data Vitals - Most Recent: Last Vital Signs Temp 98.7 F 06/14/21 11:29 Pulse 74 06/14/21 17:05 Resp 18 06/14/21 11:29 BP 133/45 L 06/14/21 17:05 Pulse Ox 91 L 06/14/21 13:06 Weight - Most Recent: 142 lb I&O - Last 24 Hours: Intake & Output 06/14/21 06/14/21 06/14/21 06:59 14:59 22:59 Intake Total 1486 572 Output Total 1650 Balance 1486 -1078 Lab Results Last 24 Hours: Laboratory Results - last 24 hr 06/14/21 06/14/21 Range/Units 04:30 04:30 WBC 11.1 H (4.5-11.0) K/uL RBC 3.50 (3.30-5.50) M/uL Hgb 11.1 L (12.0-15.0) g/dL Hct 34.2 L (36.0-48.0) % MCV 98 (80-98) fL MCH 32 H (27-31) pg MCHC 33 (32-36) % Plt Count 284 (150-400) K/uL Sodium 140 (140-148) mmol/L Potassium 3.0 L (3.6-5.2) mmol/L Chloride 102 (100-108) mmol/L Carbon Dioxide 28 (21-32) mmol/L Anion Gap 13.0 (5.0-14.0) mmol/L BUN 16 (7-18) mg/dL Creatinine 0.8 (0.6-1.0) mg/dL Est Cr Clr Drug Dosing 35.59 mL/min Estimated GFR (MDRD) > 60 (>60) Glucose 134 H (74-106) mg/dL Calcium 7.7 L (8.5-10.1) mg/dL Melvin Results Last 24 Hours: Microbiology 06/12/21 20:55 Aerobic Blood Culture - Preliminary Blood - Artery NO GROWTH AFTER 1 DAY Anaerobic Blood Culture - Preliminary NO GROWTH AFTER 1 DAY 06/12/21 21:10 Aerobic Blood Culture - Preliminary Blood - Arm, Right NO GROWTH AFTER 1 DAY Anaerobic Blood Culture - Preliminary NO GROWTH AFTER 1 DAY Med Orders - Current: Current Medications Acetaminophen (Acetaminophen 325 Mg Tab) 650 mg PO Q4H PRN PRN Reason: Pain (Mild 1-3)/fever Last Admin: 06/14/21 01:50 Dose: 650 mg Documented by: Albuterol (Albuterol 0.083% 2.5 Mg/3 Ml Neb Soln) 2.5 mg NEB Q4H PRN PRN Reason: Shortness Of Breath/wheezing Last Admin: 06/14/21 06:02 Dose: 2.5 mg Documented by: Albuterol/Ipratropium (Albuterol/Ipratropium 3.0-0.5 Mg/3 Ml Neb Soln) 3 ml NEB QIDRT [facility] Last Admin: 06/14/21 14:31 Dose: 3 ml Documented by: Amlodipine Besylate (Amlodipine 5 Mg Tab) 5 mg PO DAILY [facility] Last Admin: 06/14/21 08:49 Dose: 5 mg Documented by: Atorvastatin Calcium (Atorvastatin 20 Mg Tab) 60 mg PO DAILY [facility] Last Admin: 06/14/21 08:44 Dose: 60 mg Documented by: Azithromycin (Azithromycin 250 Mg Tab) 500 mg PO BEDTIME [facility] Last Admin: 06/13/21 20:30 Dose: 500 mg Documented by: Bisacodyl (Bisacodyl 5 Mg Tab) 5 mg PO DAILY PRN PRN Reason: Constipation Calcium Carbonate/Glycine (Calcium Carbonate 500 Mg Tab.Chew) 500 mg PO Q4H PRN PRN Reason: Heartburn Carvedilol (Carvedilol 3.125 Mg Tab) 6.25 mg PO BIDAC [facility] Last Admin: 06/14/21 17:05 Dose: 6.25 mg Documented by: Docusate Sodium (Docusate Sodium 100 Mg Cap) 100 mg PO BID PRN PRN Reason: Constipation Enoxaparin Sodium (Enoxaparin 30 Mg/0.3 Ml Syringe) 30 mg SUBCUT BEDTIME [facility] Last Admin: 06/13/21 20:29 Dose: 30 mg Documented by: Escitalopram Oxalate (Escitalopram 10 Mg Tab) 10 mg PO DAILY [facility] Last Admin: 06/14/21 08:48 Dose: 10 mg Documented by: Furosemide 20 mg/ Furosemide (40 mg) 60 mg PO DAILY [facility] Last Admin: 06/14/21 08:45 Dose: 60 mg Documented by: Hydrochlorothiazide (Hydrochlorothiazide 12.5 Mg Cap) 12.5 mg PO DAILY [facility] Last Admin: 06/14/21 08:46 Dose: 12.5 mg Documented by: Doxycycline Hyclate 100 mg/ (Sodium Chloride) 100 mls @ 100 mls/hr IV Q12H [facility] Last Admin: 06/14/21 08:53 Dose: 100 mls/hr Documented by: Losartan Potassium (Losartan 50 Mg Tab) 100 mg PO DAILY [facility] Last Admin: 06/14/21 08:48 Dose: 100 mg Documented by: Methylprednisolone Sodium Succinate (Methylprednisolone Sodium Succinate 40 Mg/1 Ml Sdv) 40 mg IVPUSH Q6H [facility] Last Admin: 06/14/21 13:10 Dose: 40 mg Documented by: Montelukast Sodium (Montelukast 10 Mg Tab) 10 mg PO DAILY [facility] Last Admin: 06/14/21 08:45 Dose: 10 mg Documented by: Morphine Sulfate (Morphine 2 Mg/Ml Syringe) 2 mg IVPUSH Q2H PRN PRN Reason: Pain (severe 7-10) Nitroglycerin (Nitroglycerin 0.4 Mg Tab.Sl) 0.4 mg SL ASDIRECTED PRN PRN Reason: Chest Pain Ondansetron HCl (Ondansetron 4 Mg Tab.Dis) 4 mg PO Q6H PRN PRN Reason: Nausea able to take PO Oxycodone HCl (Oxycodone 5 Mg Tab) 5 mg PO Q4H PRN PRN Reason: Pain (moderate 4-6) Pantoprazole Sodium (Pantoprazole 40 Mg Tab.Cr) 40 mg PO BEDTIME [facility] Sodium Chloride (Sodium Chloride 0.9% 10 Ml Syringe) 10 ml FLUSH ASDIRECTED PRN PRN Reason: Keep Vein Open Discontinued Medications Albuterol (Albuterol 0.083% 2.5 Mg/3 Ml Neb Soln) 2.5 mg NEB ONETIME ONE Stop: 06/12/21 18:14 Last Admin: 06/12/21 18:27 Dose: 2.5 mg Documented by: Albuterol/Ipratropium (Albuterol/Ipratropium 3.0-0.5 Mg/3 Ml Neb Soln) 3 ml NEB ONETIME ONE Stop: 06/12/21 18:01 Last Admin: 06/12/21 18:11 Dose: 3 ml Documented by: Azithromycin (Azithromycin 250 Mg Tab) 500 mg PO ONETIME ONE Stop: 06/12/21 21:16 Last Admin: 06/12/21 21:30 Dose: 500 mg Documented by: Carvedilol (Carvedilol 12.5 Mg Tab) 6.25 mg PO ONETIME ONE Stop: 06/12/21 19:09 Last Admin: 06/12/21 19:12 Dose: 6.25 mg Documented by: Carvedilol (Carvedilol 3.125 Mg Tab) 6.25 mg PO ONETIME ONE Stop: 06/12/21 21:16 Last Admin: 06/12/21 21:30 Dose: 6.25 mg Documented by: Furosemide (Furosemide 40 Mg Tab) 60 mg PO DAILY [facility] Last Admin: 06/12/21 22:09 Dose: 60 mg Documented by: Sodium Chloride (Normal Saline) 1,000 mls @ 150 mls/hr IV ASDIRECTED [facility] Last Admin: 06/12/21 21:15 Dose: 150 mls/hr Documented by: Sodium Chloride (Normal Saline) 1,000 mls @ 100 mls/hr IV ASDIRECTED [facility] Last Admin: 06/13/21 17:10 Dose: 100 mls/hr Documented by: Doxycycline Hyclate 100 mg/ (Sodium Chloride) 100 mls @ 100 mls/hr IV Q12H [facility] Last Admin: 06/12/21 21:14 Dose: 100 mls/hr Documented by: Azithromycin 500 mg/ Sodium (Chloride) 250 mls @ 250 mls/hr IV Q24H [facility] Last Admin: 06/13/21 16:33 Dose: Not Given Documented by: Potassium Chloride 40 meq/ (Premix) 100 mls @ 25 mls/hr IV ONETIME ONE Stop: 06/13/21 10:50 Potassium Chloride 20 meq/Lidocaine HCl 2 ml/ Sodium Chloride 112 mls @ 56 mls/hr IV Q2H JENNIFER Stop: 06/13/21 11:59 Last Admin: 06/13/21 13:10 Dose: 56 mls/hr Documented by: Potassium Chloride 20 meq/Lidocaine HCl 2 ml/ Sodium Chloride 112 mls @ 56 mls/hr IV ONETIME ONE Stop: 06/14/21 13:29 Last Admin: 06/14/21 11:58 Dose: 56 mls/hr Documented by: Calcium Gluconate 1 gm/ Sodium (Chloride) 110 mls @ 110 mls/hr IV ONETIME ONE Stop: 06/14/21 11:29 Last Admin: 06/14/21 10:54 Dose: 110 mls/hr Documented by: Influenza Virus Vaccine (Flu Vacc [id number](65yr Up)/Pf 240 Mcg/0.7 Ml Syringe) 240 mcg IM .ONCE ONE Stop: 06/12/21 23:46 Last Admin: 06/13/21 01:24 Dose: Not Given Documented by: Influenza Virus Vaccine (Flu Vacc [id number](65yr Up)/Pf 240 Mcg/0.7 Ml Syringe) 240 mcg IM .ONCE ONE Stop: 06/13/21 09:01 Last Admin: 06/13/21 17:11 Dose: 240 mcg Documented by: Methylprednisolone Sodium Succinate (Methylprednisolone Sodium Succinate 125 Mg/2 Ml Sdv) Confirm Administered Dose 125 mg .ROUTE .STK-MED ONE Stop: 06/12/21 18:10 Last Admin: 06/12/21 18:16 Dose: Not Given Documented by: Methylprednisolone Sodium Succinate (Methylprednisolone Sodium Succinate 125 Mg/2 Ml Sdv) 125 mg IVPUSH ONETIME ONE Stop: 06/12/21 18:12 Last Admin: 06/12/21 18:15 Dose: 125 mg Documented by: Pantoprazole Sodium (Pantoprazole 40 Mg Vial) 40 mg IV BEDTIME JENNIFER Last Admin: 06/13/21 20:29 Dose: 40 mg Documented by: Potassium Chloride (Potassium Chloride 10 Meq Cap.Er) 10 meq PO DAILY JENN[facility]ER Last Admin: 06/14/21 08:44 Dose: 10 meq Documented by: Potassium Chloride (Potassium Chloride 20 Meq Tab.Er) 40 meq PO ONETIME ONE Stop: 06/13/21 13:04 - Exam General: Alert, Oriented HEENT: Pupils Equal, EOMI, Mucous Membr. Moist/[place] Neck: Supple Lungs: Clear to Auscultation, Normal Respiratory Effort Cardiovascular: Regular Rate, Regular Rhythm GI/Abdominal Exam: Normal Bowel Sounds, Soft, Non-Tender, No Organomegaly, No Distention, No Abnormal Bruit Extremities: Normal Inspection, Non-Tender, Pedal Edema Skin: Warm, Dry, Intact Neurological: No New Focal Deficit Psy/Mental Status: Alert, Normal Affect, Normal Mood - Patient Data Lab Results Last 24 hrs: Laboratory Results - last 24 hr 06/14/21 06/14/21 Range/Units 04:30 04:30 WBC 11.1 H (4.5-11.0) K/uL RBC 3.50 (3.30-5.50) M/uL Hgb 11.1 L (12.0-15.0) g/dL Hct 34.2 L (36.0-48.0) % MCV 98 (80-98) fL MCH 32 H (27-31) pg MCHC 33 (32-36) % Plt Count 284 (150-400) K/uL Sodium 140 (140-148) mmol/L Potassium 3.0 L (3.6-5.2) mmol/L Chloride 102 (100-108) mmol/L Carbon Dioxide 28 (21-32) mmol/L Anion Gap 13.0 (5.0-14.0) mmol/L BUN 16 (7-18) mg/dL Creatinine 0.8 (0.6-1.0) mg/dL Est Cr Clr Drug Dosing 35.59 mL/min Estimated GFR (MDRD) > 60 (>60) Glucose 134 H (74-106) mg/dL Calcium 7.7 L (8.5-10.1) mg/dL Result Diagrams: 06/14/21 04:30 06/14/21 04:30 Melvin Results Last 24 hrs: Microbiology 06/12/21 20:55 Aerobic Blood Culture - Preliminary Blood - Artery NO GROWTH AFTER 1 DAY Anaerobic Blood Culture - Preliminary NO GROWTH AFTER 1 DAY 06/12/21 21:10 Aerobic Blood Culture - Preliminary Blood - Arm, Right NO GROWTH AFTER 1 DAY Anaerobic Blood Culture - Preliminary NO GROWTH AFTER 1 DAY Sepsis Event Note - Evaluation Sepsis Screening Result: No Definite Risk - Focused Exam Vital Signs: Vital Signs Temp Pulse Pulse Resp BP BP Pulse Ox 06/14/21 17:05 74 133/45 L 06/14/21 14:31 74 06/14/21 13:06 91 L 06/14/21 11:29 98.7 F 69 18 133/45 L 95 06/14/21 10:34 75 06/14/21 08:49 139/47 L 06/14/21 08:48 139/47 L 06/14/21 08:46 76 139/47 L 06/14/21 08:32 99.0 F 76 18 139/47 L 95 06/14/21 07:43 93 L - Problem List & Annotations (1) COPD with acute exacerbation SNOMED Code(s): 147623268 Code(s): J44.1 - CHRONIC OBSTRUCTIVE PULMONARY DISEASE W (ACUTE) EXACERBATION Status: Acute Priority: High Current Visit: Yes (2) Congestive heart failure SNOMED Code(s): 98068991 Code(s): I50.9 - HEART FAILURE, UNSPECIFIED Status: Acute Priority: High Current Visit: Yes (3) Exposure to mold SNOMED Code(s): 11347371497249785 Code(s): Z77.120 - CONTACT WITH AND (SUSPECTED) EXPOSURE TO MOLD (TOXIC) Status: Acute Current Visit: Yes - Problem List Review Problem List Initiated/Reviewed/Updated: Yes - My Orders Last 24 Hours: My Active Orders 06/14/21 16:29 Sodium Chloride 0.9% [Saline Flush] 10 ml FLUSH ASDIRECTED PRN Saline Lock Insert [OM.PC] Routine 06/15/21 09:00 Potassium Chloride 20 meq PO DAILY - Plan Plan:: Assessment/Plan Comment:: ASSESSMENT AND PLAN OF CARE- COPD WITH ACUTE EXACERBATION, CHF, HYPERTENSION COPD with acute exacerbation-secondary to environmental/mold exposure- significantly improved as she is no longer in an exacerbating environment -IV Antibiotic; Doxy 1 gram IV every 12 hours -IV Zithromax 500mg every 24 hours -IV Solumedrol 40 mg every 6 hours -schedule Duo nebs every 6 hours, Albuterol nebs every 4 hours prn -Advise to notify nurses of any chest pain or other symptoms -Covid -19 test negative Congestive Heart Failure-compensated -monitor I & O, will adjust fluids as needed -continue outpatient medication Hypertension -monitor blood pressure -continue outpatient medication Hypokalemia -We will monitor and supplement as needed Maintenance issues -Orders home meds: chronic medication -Nutrition: regular diet -Anderson catheter -not indicated at this time -DVT - Lovenox 30 mg subcut daily -PPI - IV Protonix 40mg daily CODE STATUS: DNR/DNI Plan: We will plan to have her discharged tomorrow. I will increase her oral potassium for discharge as she seems to have a low potassium level. We will get her a new nebulizer and tubing as well. Disposition: home with family Primary care provider: not stated Hospitalist: Dr. Albarado - Mortality Measure Prognosis:: Good `
[2021-06-14] MEDS: Pantoprazole 40 MG Tab.CR PO SCH (21:38)
[2021-06-14] MEDS: Enoxaparin 30 MG/0.3 ML Syringe SUBCUT SCH (21:38)
[2021-06-14] MEDS: Azithromycin 250 MG Tab PO SCH (21:39)
[2021-06-14] MEDS: Doxycycline 100 MG Cap PO SCH (22:14)
[2021-06-15] MEDS: methylPREDNISolone Sodium Succinate 40 MG/1 ML SDV IVPUSH SCH ×4 (02:23→19:16)
[2021-06-15] MEDS: Acetaminophen 325 MG Tab PO PRN (02:28)
[2021-06-15] MEDS: Albuterol 0.083% 2.5 MG/3 ML Neb Soln NEB PRN (05:54)
[2021-06-15] MEDS: Carvedilol 3.125 MG Tab PO SCH ×2 (07:13→16:49)
[2021-06-15] MEDS: Albuterol/Ipratropium 3.0-0.5 MG/3 ML Neb Soln NEB SCH ×5 (07:32→20:53)
[2021-06-15] MEDS: atorvaSTATin 20 MG Tab PO SCH (08:13)
[2021-06-15] MEDS: Doxycycline 100 MG Cap PO SCH ×2 (08:13→20:42)
[2021-06-15] MEDS: Potassium Chloride 10 MEQ Cap.ER PO SCH (08:13)
[2021-06-15] MEDS: Montelukast 10 MG Tab PO SCH (08:14)
[2021-06-15] MEDS: Hydrochlorothiazide 12.5 MG Cap PO SCH (08:14)
[2021-06-15] MEDS: amLODIPine 5 MG Tab PO SCH (08:14)
[2021-06-15] MEDS: Escitalopram 10 MG Tab PO SCH (08:14)
[2021-06-15] MEDS: Losartan 50 MG Tab PO SCH (08:15)
[2021-06-15] MEDS ORDERED: Potassium Chloride 20 MEQ Tab.ER PO ONE (10:30)
[2021-06-15] MEDS ORDERED: Potassium Chloride 20 MEQ, Lidocaine 1% 2 ML in Sodium Chloride 0.9% 100 ML IV ONE (11:00)
--- NOTE | 2021-06-15 19:50 | PCM.PN ---
- General Info Date of Service: 06/15/21 Admission Dx/Problem (Free Text): Admission Diagnosis/Problem Admission Diagnosis/Problem COPD, Moderate chronic obstructive pulmonary disease Subjective Update: Plan to send Ms. Luna home today however her potassium was critically low this morning. I did speak with her [id number] today about all the things I spoke with her other 2 daughters and about the past 2 days. If her potassium is good tomorrow we can send her home on a higher dose of Klor-Con than what she is currently taking. Otherwise her breathing is good she is not requiring supplementary oxygen and she has no complaints. - Review of Systems General: Reports: No Symptoms HEENT: Reports: No Symptoms Pulmonary: Reports: No Symptoms Cardiovascular: Reports: No Symptoms Gastrointestinal: Reports: No Symptoms Genitourinary: Reports: No Symptoms Musculoskeletal: Reports: No Symptoms Skin: Reports: No Symptoms Neurological: Reports: No Symptoms Psychiatric: Reports: No Symptoms - Patient Data Vitals - Most Recent: Last Vital Signs Temp 98.6 F 06/15/21 17:00 Pulse 80 06/15/21 17:00 Resp 18 06/15/21 17:00 BP 144/66 H 06/15/21 17:00 Pulse Ox 95 06/15/21 17:00 Weight - Most Recent: 142 lb I&O - Last 24 Hours: Intake & Output 06/15/21 06/15/21 06/15/21 06:59 14:59 22:59 Intake Total 300 620 Balance 300 620 Lab Results Last 24 Hours: Laboratory Results - last 24 hr 06/15/21 06/15/21 Range/Units 09:29 09:29 WBC 12.5 H (4.5-11.0) K/uL RBC 3.84 (3.30-5.50) M/uL Hgb 12.0 (12.0-15.0) g/dL Hct 37.0 (36.0-48.0) % MCV 96 (80-98) fL MCH 31 (27-31) pg MCHC 32 (32-36) % Plt Count 331 (150-400) K/uL Sodium 142 (140-148) mmol/L Potassium 2.7 L* (3.6-5.2) mmol/L Chloride 102 (100-108) mmol/L Carbon Dioxide 29 (21-32) mmol/L Anion Gap 13.7 (5.0-14.0) mmol/L BUN 18 (7-18) mg/dL Creatinine 0.8 (0.6-1.0) mg/dL Est Cr Clr Drug Dosing 35.59 mL/min Estimated GFR (MDRD) > 60 (>60) Glucose 135 H (74-106) mg/dL Calcium 8.1 L (8.5-10.1) mg/dL Melvin Results Last 24 Hours: Microbiology 06/12/21 20:55 Aerobic Blood Culture - Preliminary Blood - Artery NO GROWTH AFTER 2 DAYS Anaerobic Blood Culture - Preliminary NO GROWTH AFTER 2 DAYS 06/12/21 21:10 Aerobic Blood Culture - Preliminary Blood - Arm, Right NO GROWTH AFTER 2 DAYS Anaerobic Blood Culture - Preliminary NO GROWTH AFTER 2 DAYS Med Orders - Current: Current Medications Acetaminophen (Acetaminophen 325 Mg Tab) 650 mg PO Q4H PRN PRN Reason: Pain (Mild 1-3)/fever Last Admin: 06/15/21 02:28 Dose: 650 mg Documented by: Albuterol (Albuterol 0.083% 2.5 Mg/3 Ml Neb Soln) 2.5 mg NEB Q4H PRN PRN Reason: Shortness Of Breath/wheezing Last Admin: 06/15/21 05:54 Dose: 2.5 mg Documented by: Albuterol/Ipratropium (Albuterol/Ipratropium 3.0-0.5 Mg/3 Ml Neb Soln) 3 ml NEB QIDRT [facility] Last Admin: 06/15/21 19:16 Dose: 3 ml Documented by: Amlodipine Besylate (Amlodipine 5 Mg Tab) 5 mg PO DAILY [facility] Last Admin: 06/15/21 08:14 Dose: 5 mg Documented by: Atorvastatin Calcium (Atorvastatin 20 Mg Tab) 60 mg PO DAILY [facility] Last Admin: 06/15/21 08:13 Dose: 60 mg Documented by: Azithromycin (Azithromycin 250 Mg Tab) 500 mg PO BEDTIME [facility] Last Admin: 06/14/21 21:39 Dose: 500 mg Documented by: Bisacodyl (Bisacodyl 5 Mg Tab) 5 mg PO DAILY PRN PRN Reason: Constipation Calcium Carbonate/Glycine (Calcium Carbonate 500 Mg Tab.Chew) 500 mg PO Q4H PRN PRN Reason: Heartburn Carvedilol (Carvedilol 3.125 Mg Tab) 6.25 mg PO BIDAC [facility] Last Admin: 06/15/21 16:49 Dose: 6.25 mg Documented by: Docusate Sodium (Docusate Sodium 100 Mg Cap) 100 mg PO BID PRN PRN Reason: Constipation Doxycycline Hyclate (Doxycycline 100 Mg Cap) 100 mg PO BID [facility] Last Admin: 06/15/21 08:13 Dose: 100 mg Documented by: Enoxaparin Sodium (Enoxaparin 30 Mg/0.3 Ml Syringe) 30 mg SUBCUT BEDTIME [facility] Last Admin: 06/14/21 21:38 Dose: 30 mg Documented by: Escitalopram Oxalate (Escitalopram 10 Mg Tab) 10 mg PO DAILY [facility] Last Admin: 06/15/21 08:14 Dose: 10 mg Documented by: Furosemide 20 mg/ Furosemide (40 mg) 60 mg PO DAILY [facility] Last Admin: 06/15/21 08:14 Dose: 60 mg Documented by: Hydrochlorothiazide (Hydrochlorothiazide 12.5 Mg Cap) 12.5 mg PO DAILY [facility] Last Admin: 06/15/21 08:14 Dose: 12.5 mg Documented by: Losartan Potassium (Losartan 50 Mg Tab) 100 mg PO DAILY [facility] Last Admin: 06/15/21 08:15 Dose: 100 mg Documented by: Methylprednisolone Sodium Succinate (Methylprednisolone Sodium Succinate 40 Mg/1 Ml Sdv) 40 mg IVPUSH Q6H [facility] Last Admin: 06/15/21 19:16 Dose: 40 mg Documented by: Montelukast Sodium (Montelukast 10 Mg Tab) 10 mg PO DAILY [facility] Last Admin: 06/15/21 08:14 Dose: 10 mg Documented by: Morphine Sulfate (Morphine 2 Mg/Ml Syringe) 2 mg IVPUSH Q2H PRN PRN Reason: Pain (severe 7-10) Nitroglycerin (Nitroglycerin 0.4 Mg Tab.Sl) 0.4 mg SL ASDIRECTED PRN PRN Reason: Chest Pain Ondansetron HCl (Ondansetron 4 Mg Tab.Dis) 4 mg PO Q6H PRN PRN Reason: Nausea able to take PO Oxycodone HCl (Oxycodone 5 Mg Tab) 5 mg PO Q4H PRN PRN Reason: Pain (moderate 4-6) Pantoprazole Sodium (Pantoprazole 40 Mg Tab.Cr) 40 mg PO BEDTIME [facility] Last Admin: 06/14/21 21:38 Dose: 40 mg Documented by: Potassium Chloride (Potassium Chloride 10 Meq Cap.Er) 20 meq PO DAILY [facility] Last Admin: 06/15/21 08:13 Dose: 20 meq Documented by: Sodium Chloride (Sodium Chloride 0.9% 10 Ml Syringe) 10 ml FLUSH ASDIRECTED PRN PRN Reason: Keep Vein Open Discontinued Medications Albuterol (Albuterol 0.083% 2.5 Mg/3 Ml Neb Soln) 2.5 mg NEB ONETIME ONE Stop: 06/12/21 18:14 Last Admin: 06/12/21 18:27 Dose: 2.5 mg Documented by: Albuterol/Ipratropium (Albuterol/Ipratropium 3.0-0.5 Mg/3 Ml Neb Soln) 3 ml NEB ONETIME ONE Stop: 06/12/21 18:01 Last Admin: 06/12/21 18:11 Dose: 3 ml Documented by: Azithromycin (Azithromycin 250 Mg Tab) 500 mg PO ONETIME ONE Stop: 06/12/21 21:16 Last Admin: 06/12/21 21:30 Dose: 500 mg Documented by: Carvedilol (Carvedilol 12.5 Mg Tab) 6.25 mg PO ONETIME ONE Stop: 06/12/21 19:09 Last Admin: 06/12/21 19:12 Dose: 6.25 mg Documented by: Carvedilol (Carvedilol 3.125 Mg Tab) 6.25 mg PO ONETIME ONE Stop: 06/12/21 21:16 Last Admin: 06/12/21 21:30 Dose: 6.25 mg Documented by: Furosemide (Furosemide 40 Mg Tab) 60 mg PO DAILY [facility] Last Admin: 06/12/21 22:09 Dose: 60 mg Documented by: Sodium Chloride (Normal Saline) 1,000 mls @ 150 mls/hr IV ASDIRECTED [facility] Last Admin: 06/12/21 21:15 Dose: 150 mls/hr Documented by: Sodium Chloride (Normal Saline) 1,000 mls @ 100 mls/hr IV ASDIRECTED [facility] Last Admin: 06/13/21 17:10 Dose: 100 mls/hr Documented by: Doxycycline Hyclate 100 mg/ (Sodium Chloride) 100 mls @ 100 mls/hr IV Q12H [facility] Last Admin: 06/12/21 21:14 Dose: 100 mls/hr Documented by: Azithromycin 500 mg/ Sodium (Chloride) 250 mls @ 250 mls/hr IV Q24H [facility] Last Admin: 06/13/21 16:33 Dose: Not Given Documented by: Potassium Chloride 40 meq/ (Premix) 100 mls @ 25 mls/hr IV ONETIME ONE Stop: 06/13/21 10:50 Doxycycline Hyclate 100 mg/ (Sodium Chloride) 100 mls @ 100 mls/hr IV Q12H [facility] Last Admin: 06/14/21 21:38 Dose: 100 mls/hr Documented by: Potassium Chloride 20 meq/Lidocaine HCl 2 ml/ Sodium Chloride 112 mls @ 56 mls/hr IV Q2H [facility] Stop: 06/13/21 11:59 Last Admin: 06/13/21 13:10 Dose: 56 mls/hr Documented by: Potassium Chloride 20 meq/Lidocaine HCl 2 ml/ Sodium Chloride 112 mls @ 56 mls/hr IV ONETIME ONE Stop: 06/14/21 13:29 Last Admin: 06/14/21 11:58 Dose: 56 mls/hr Documented by: Calcium Gluconate 1 gm/ Sodium (Chloride) 110 mls @ 110 mls/hr IV ONETIME ONE Stop: 06/14/21 11:29 Last Admin: 06/14/21 10:54 Dose: 110 mls/hr Documented by: Potassium Chloride 20 meq/Lidocaine HCl 2 ml/ Sodium Chloride 112 mls @ 56 mls/hr IV ONETIME ONE Stop: 06/15/21 12:59 Last Admin: 06/15/21 11:15 Dose: 56 mls/hr Documented by: Influenza Virus Vaccine (Flu Vacc [id number](65yr Up)/Pf 240 Mcg/0.7 Ml Syringe) 240 mcg IM .ONCE ONE Stop: 06/12/21 23:46 Last Admin: 06/13/21 01:24 Dose: Not Given Documented by: Influenza Virus Vaccine (Flu Vacc [id number](65yr Up)/Pf 240 Mcg/0.7 Ml Syringe) 240 mcg IM .ONCE ONE Stop: 06/13/21 09:01 Last Admin: 06/13/21 17:11 Dose: 240 mcg Documented by: Methylprednisolone Sodium Succinate (Methylprednisolone Sodium Succinate 125 Mg/2 Ml Sdv) Confirm Administered Dose 125 mg .ROUTE .STK-MED ONE Stop: 06/12/21 18:10 Last Admin: 06/12/21 18:16 Dose: Not Given Documented by: Methylprednisolone Sodium Succinate (Methylprednisolone Sodium Succinate 125 Mg/2 Ml Sdv) 125 mg IVPUSH ONETIME ONE Stop: 06/12/21 18:12 Last Admin: 06/12/21 18:15 Dose: 125 mg Documented by: Pantoprazole Sodium (Pantoprazole 40 Mg Vial) 40 mg IV BEDTIME [facility] Last Admin: 06/13/21 20:29 Dose: 40 mg Documented by: Potassium Chloride (Potassium Chloride 10 Meq Cap.Er) 10 meq PO DAILY [facility] Last Admin: 06/14/21 08:44 Dose: 10 meq Documented by: Potassium Chloride (Potassium Chloride 20 Meq Tab.Er) 40 meq PO ONETIME ONE Stop: 06/13/21 13:04 Potassium Chloride (Potassium Chloride 20 Meq Tab.Er) 20 meq PO ONETIME ONE Stop: 06/15/21 10:31 Last Admin: 06/15/21 11:15 Dose: 20 meq Documented by: - Exam General: Alert, Oriented HEENT: Pupils Equal, EOMI, Mucous Membr. Moist/[place] Neck: Supple Lungs: Clear to Auscultation, Normal Respiratory Effort Cardiovascular: Regular Rate, Regular Rhythm GI/Abdominal Exam: Normal Bowel Sounds, Soft, Non-Tender, No Organomegaly, No Distention, No Abnormal Bruit Back Exam: Normal Inspection, Full Range of Motion Extremities: Normal Inspection, Non-Tender, No Pedal Edema Skin: Warm, Dry, Intact Neurological: No New Focal Deficit Psy/Mental Status: Alert, Normal Affect, Normal Mood - Patient Data Lab Results Last 24 hrs: Laboratory Results - last 24 hr 06/15/21 06/15/21 Range/Units 09:29 09:29 WBC 12.5 H (4.5-11.0) K/uL RBC 3.84 (3.30-5.50) M/uL Hgb 12.0 (12.0-15.0) g/dL Hct 37.0 (36.0-48.0) % MCV 96 (80-98) fL MCH 31 (27-31) pg MCHC 32 (32-36) % Plt Count 331 (150-400) K/uL Sodium 142 (140-148) mmol/L Potassium 2.7 L* (3.6-5.2) mmol/L Chloride 102 (100-108) mmol/L Carbon Dioxide 29 (21-32) mmol/L Anion Gap 13.7 (5.0-14.0) mmol/L BUN 18 (7-18) mg/dL Creatinine 0.8 (0.6-1.0) mg/dL Est Cr Clr Drug Dosing 35.59 mL/min Estimated GFR (MDRD) > 60 (>60) Glucose 135 H (74-106) mg/dL Calcium 8.1 L (8.5-10.1) mg/dL Result Diagrams: 06/15/21 09:29 06/15/21 09:29 Melvin Results Last 24 hrs: Microbiology 06/12/21 20:55 Aerobic Blood Culture - Preliminary Blood - Artery NO GROWTH AFTER 2 DAYS Anaerobic Blood Culture - Preliminary NO GROWTH AFTER 2 DAYS 06/12/21 21:10 Aerobic Blood Culture - Preliminary Blood - Arm, Right NO GROWTH AFTER 2 DAYS Anaerobic Blood Culture - Preliminary NO GROWTH AFTER 2 DAYS Sepsis Event Note - Evaluation Sepsis Screening Result: No Definite Risk - Focused Exam Vital Signs: Vital Signs Temp Pulse Pulse Resp BP BP Pulse Ox 06/15/21 17:00 98.6 F 80 18 144/66 H 95 06/15/21 16:49 84 144/66 H 06/15/21 14:30 78 06/15/21 13:47 160/58 H 06/15/21 08:15 158/52 H 06/15/21 08:14 158/52 H - Problem List & Annotations (1) COPD with acute exacerbation SNOMED Code(s): 303683816 Code(s): J44.1 - CHRONIC OBSTRUCTIVE PULMONARY DISEASE W (ACUTE) EXACERBATION Status: Resolved Priority: High Current Visit: Yes (2) Exposure to mold SNOMED Code(s): 75744653131763388 Code(s): Z77.120 - CONTACT WITH AND (SUSPECTED) EXPOSURE TO MOLD (TOXIC) Status: Suspected Current Visit: Yes (3) Reactive airway disease SNOMED Code(s): 644118652347 Code(s): J45.909 - UNSPECIFIED ASTHMA, UNCOMPLICATED Status: Chronic Current Visit: Yes (4) Atherosclerosis of renal artery SNOMED Code(s): 63997142 Code(s): I70.1 - ATHEROSCLEROSIS OF RENAL ARTERY Status: Chronic Current Visit: No (5) CHF, Congestive heart failure SNOMED Code(s): 71752017 Code(s): I50.9 - HEART FAILURE, UNSPECIFIED Status: Chronic Current Visit: No Annotation/Comment:: Will give lasix to help diurese patient as she does have clinical s/s of chronic fluid overloading and has known CHF. (6) COPD (chronic obstructive pulmonary disease) SNOMED Code(s): 84605939 Code(s): J44.9 - CHRONIC OBSTRUCTIVE PULMONARY DISEASE, UNSPECIFIED Status: Chronic Current Visit: No (7) Environmental allergies SNOMED Code(s): 445708421 Code(s): Z91.09 - OTH ALLERGY STATUS, OTH THAN TO DRUGS AND BIOLG SUBSTANCES Status: Chronic Current Visit: No (8) History of coronary artery disease SNOMED Code(s): 075955166 Code(s): Z86.79 - PERSONAL HISTORY OF OTHER DISEASES OF THE CIRCULATORY SYSTEM Status: Chronic Current Visit: No - Problem List Review Problem List Initiated/Reviewed/Updated: Yes - My Orders Last 24 Hours: My Active Orders 06/14/21 22:00 Dietary Supplements [RC] BIDMEALS Doxycycline [Vibramycin] 100 mg PO BID 06/15/21 09:00 Potassium Chloride 20 meq PO DAILY 06/15/21 11:57 RT Evaluate for Home Oxygen [RC] Click to Edit 6 Minute Walk Test [RT Physical Performance Test] [RESPCARE] Routine - Plan Plan:: Assessment/Plan Comment:: ASSESSMENT AND PLAN OF CARE- COPD WITH ACUTE EXACERBATION, CHF, HYPERTENSION COPD with acute exacerbation Reactive airway disease associated with her COPD and environmental allergies -Likely secondary to environmental/mold exposure-significantly improved as she is no longer in an exacerbating environment -Oral azithromycin and doxy will be given to complete dosage at home -IV Solumedrol 40 mg every 6 hours -will need to give taper when she goes home -schedule Duo nebs every 6 hours, Albuterol nebs every 4 hours prn -Advise to notify nurses of any chest pain or other symptoms -Covid -19 test negative Congestive Heart Failure-compensated -monitor I & O, will adjust fluids as needed -continue outpatient medication Essential hypertension -monitor blood pressure -continue outpatient medication Hypokalemia -We will monitor and supplement as needed Maintenance issues -Orders home meds: chronic medication -Nutrition: regular diet -Anderson catheter -not indicated at this time -DVT - Lovenox 30 mg subcut daily -PPI - IV Protonix 40mg daily CODE STATUS: DNR/DNI Plan: As long as her electrolytes are balanced tomorrow we can send her home with increased dose of potassium. She will also go home on the remaining doses of azithromycin and doxycycline. We will also send her on a prednisone taper. Disposition: home with family Primary care provider: not stated Hospitalist: Dr. Albarado - Mortality Measure Prognosis:: Good `
[2021-06-15] MEDS: Pantoprazole 40 MG Tab.CR PO SCH (20:42)
[2021-06-15] MEDS: Enoxaparin 30 MG/0.3 ML Syringe SUBCUT SCH (20:42)
[2021-06-15] MEDS: Azithromycin 250 MG Tab PO SCH (20:42)
[2021-06-16] MEDS: Albuterol 0.083% 2.5 MG/3 ML Neb Soln NEB PRN (00:32)
[2021-06-16] MEDS: methylPREDNISolone Sodium Succinate 40 MG/1 ML SDV IVPUSH SCH ×2 (00:33→07:19)
[2021-06-16 06:16] VITALS: BP 149/65; PULSE 79
[2021-06-16] MEDS: Albuterol/Ipratropium 3.0-0.5 MG/3 ML Neb Soln NEB SCH (06:32)
[2021-06-16] MEDS: Carvedilol 3.125 MG Tab PO SCH (07:05)
[2021-06-16] MEDS: Losartan 50 MG Tab PO SCH (08:50)
[2021-06-16] MEDS: Hydrochlorothiazide 12.5 MG Cap PO SCH (08:52)
[2021-06-16] MEDS: Escitalopram 10 MG Tab PO SCH (08:54)
[2021-06-16] MEDS: atorvaSTATin 20 MG Tab PO SCH (08:55)
[2021-06-16] MEDS: amLODIPine 5 MG Tab PO SCH (08:56)
[2021-06-16] MEDS: Potassium Chloride 10 MEQ Cap.ER PO SCH (08:57)
[2021-06-16] MEDS: Montelukast 10 MG Tab PO SCH (08:58)
[2021-06-16] MEDS: Doxycycline 100 MG Cap PO SCH (08:59)
--- NOTE | 2021-06-18 11:02 | PCM.DCSUM1 ---
Discharge Summary - Hospital Course Free Text/Narrative:: Ms. Luna is an 85-year-old female with past medical history significant for coronary artery bypass due to coronary artery disease and history of LA, hypercholesterolemia, hypertension, asthma/COPD, chronic kidney disease, renal artery stenosis and anxiety and depression who presented with increasing dyspnea for the past day. She developed respiratory arrest at home and family called 911. This is the second time this is happened this quickly however she has had about 4 episodes in the past year of this issue. sHe had been brought by ambulance and had to be resuscitated due to respiratory arrest. She arrived to the emergency department on 10 L oxygen and was doing better. Vital signs on arrival were temperature 37.2, pulse 76, respiratory rate 18, blood pressure 136/44, pulse ox 93. He was treated with nebulizers and given steroids in the emergency department a chest x-ray was done which just showed effects of COPD. While in the hospital she initially needed supplementary oxygen however she did not need this after the initial movement to the floor. She improved very quickly. Her environment was addressed with her family to prevent things like this from happening in the future. She was also set up with a new nebulizer and supply for this as her nebulizer was at least 5 years old. Her family and her were educated on the progression of COPD. She does not currently need home oxygen and passed a 6-minute walk test. Diagnosis: Stroke: No Modified Cloud Scale: No Symptoms at All Modified Cloud Scale Score: 0 - Discharge Data Discharge Date: 06/16/21 Discharge Disposition: Home, W Home Health Agency 06 Preliminary Cause of *Q: Respiratory Failure Condition: Stable - Referral to Home Health Date of Face to Face Encounter: 06/21/21 Reason for Homebound Status: COPD Primary Care Physician: PCP Unknown Skilled Need: BP check, SpO2 monitoring - Discharge Diagnosis/Problem(s) (1) COPD with acute exacerbation SNOMED Code(s): 999830708 ICD Code: J44.1 - CHRONIC OBSTRUCTIVE PULMONARY DISEASE W (ACUTE) EXACERBATION Status: Resolved Priority: High (2) Exposure to mold SNOMED Code(s): 51006824372369545 ICD Code: Z77.120 - CONTACT WITH AND (SUSPECTED) EXPOSURE TO MOLD (TOXIC) Status: Suspected (3) Reactive airway disease SNOMED Code(s): 614463588578 ICD Code: J45.909 - UNSPECIFIED ASTHMA, UNCOMPLICATED Status: Chronic (4) Atherosclerosis of renal artery SNOMED Code(s): 32977874 ICD Code: I70.1 - ATHEROSCLEROSIS OF RENAL ARTERY Status: Chronic (5) CHF, Congestive heart failure SNOMED Code(s): 15976431 ICD Code: I50.9 - HEART FAILURE, UNSPECIFIED Status: Chronic Problem D etails: Will give lasix to help diurese patient as she does have clinical s/s of chronic fluid overloading and has known CHF. (6) COPD (chronic obstructive pulmonary disease) SNOMED Code(s): 73912481 ICD Code: J44.9 - CHRONIC OBSTRUCTIVE PULMONARY DISEASE, UNSPECIFIED Status: Chronic (7) Environmental allergies SNOMED Code(s): 161550409 ICD Code: Z91.09 - OTH ALLERGY STATUS, OTH THAN TO DRUGS AND BIOLG SUBSTANCES Status: Chronic (8) History of coronary artery disease SNOMED Code(s): 970551877 ICD Code: Z86.79 - PERSONAL HISTORY OF OTHER DISEASES OF THE CIRCULATORY SYSTEM Status: Chronic - Patient Summary/Data Consults: Consultations 06/12/21 20:31 Consult to Spiritual Care [CONS] Routine - Discharge Plan Prescriptions/Med Rec: Potassium Chloride [Klor-Con M20] 20 meq PO DAILY 30 Days #30 tab.er predniSONE [Prednisone] See Taper PO DAILY #30 tablet Home Medications: Home Meds Albuterol Sulfate [Proair Hfa] 2 puff IH Q6H PRN 08/21/14 [History] Albuterol/Ipratropium [DuoNeb 3.0-0.5 MG/3 ML] 1 ampule IH Q6H PRN 08/21/14 [History] Aspirin [Halfprin] 81 mg PO DAILY 08/21/14 [History] Calcium Carbonate [Tums] 500 mg PO ASDIRECTED PRN 08/21/14 [History] Fluticasone Propion/Salmeterol [Advair 250-50 Diskus] 1 puff IH BID 08/21/14 [History] Furosemide 60 mg PO DAILY 08/21/14 [History] Losartan [Cozaar] 100 mg PO DAILY 08/21/14 [History] Montelukast Sodium [Singulair] 10 mg PO DAILY 08/21/14 [History] Nitroglycerin 0.4 mg SL ASDIRECTED PRN 08/21/14 [History] atorvaSTATin [Lipitor] 60 mg PO DAILY 08/21/14 [History] hydroCHLOROthiazide [Hydrochlorothiazide] 12.5 mg PO DAILY 06/22/17 [History] amLODIPine Besylate [Amlodipine Besylate] 5 mg PO DAILY 01/16/18 [History] Escitalopram [Lexapro] 10 mg PO DAILY 04/21/20 [History] Umeclidinium [place] [Incruse Ellipta*] 1 inhalation PO DAILY 03/28/21 [History] carvediloL [Carvedilol] 6.25 mg PO BIDAC 03/28/21 [History] Azithromycin 500 mg PO BEDTIME #3 tablet 03/30/21 [Rx] Cefdinir 300 mg PO BID #6 capsule 03/30/21 [Rx] Potassium Chloride [Klor-Con M20] 20 meq PO DAILY 30 Days #30 tab.er 06/16/21 [Rx] predniSONE [Prednisone] See Taper PO DAILY #30 tablet 06/16/21 [Rx] Patient Handouts: How to Use a Nebulizer, Adult, Potassium Content of Foods Referrals: Nabeel Dubon NP [Nurse Practitioner] - 06/21/21 11:20 am (Please arrive 15 minutes early to register for your appointment.) - Discharge Summary/Plan Comment DC Time >30 min.: Yes (Most of the time discharging the patient was spent educating her and her fa) Total # of Minutes for Discharge Time: 60 - General Info Date of Service: 06/16/21 Admission Dx/Problem (Free Text: Admission Diagnosis/Problem Admission Diagnosis/Problem COPD, Moderate chronic obstructive pulmonary disease Subjective Update: She was having no symptoms at discharge. She was still having some episodes of low potassium so her supplemental potassium that she normally takes outpatient was 10 mEq this was increased to 20 mEq daily - Review of Systems General: Reports: No Symptoms HEENT: Reports: No Symptoms Pulmonary: Reports: No Symptoms Cardiovascular: Reports: No Symptoms Gastrointestinal: Reports: No Symptoms Genitourinary: Reports: No Symptoms Musculoskeletal: Reports: No Symptoms Skin: Reports: No Symptoms Neurological: Reports: No Symptoms Psychiatric: Reports: No Symptoms - Patient Data Vitals - Most Recent: Last Vital Signs Temp 98.4 F 06/16/21 06:15 Pulse 79 06/16/21 07:05 Resp 18 06/16/21 06:15 BP 149/65 H 06/16/21 08:56 Pulse Ox 93 L 06/16/21 06:15 Weight - Most Recent: 142 lb DION Results - Last 24 hrs: Microbiology 06/12/21 21:10 Aerobic Blood Culture - Final Blood - Arm, Right NO GROWTH AFTER 5 DAYS Anaerobic Blood Culture - Final NO GROWTH AFTER 5 DAYS 06/12/21 20:55 Aerobic Blood Culture - Final Blood - Artery NO GROWTH AFTER 5 DAYS Anaerobic Blood Culture - Final NO GROWTH AFTER 5 DAYS Med Orders - Current: Current Medications Discontinued Medications Acetaminophen (Acetaminophen 325 Mg Tab) 650 mg PO Q4H PRN PRN Reason: Pain (Mild 1-3)/fever Last Admin: 06/15/21 02:28 Dose: 650 mg Documented by: Albuterol (Albuterol 0.083% 2.5 Mg/3 Ml Neb Soln) 2.5 mg NEB ONETIME ONE Stop: 06/12/21 18:14 Last Admin: 06/12/21 18:27 Dose: 2.5 mg Documented by: Albuterol (Albuterol 0.083% 2.5 Mg/3 Ml Neb Soln) 2.5 mg NEB Q4H PRN PRN Reason: Shortness Of Breath/wheezing Last Admin: 06/16/21 00:32 Dose: 2.5 mg Documented by: Albuterol/Ipratropium (Albuterol/Ipratropium 3.0-0.5 Mg/3 Ml Neb Soln) 3 ml NEB ONETIME ONE Stop: 06/12/21 18:01 Last Admin: 06/12/21 18:11 Dose: 3 ml Documented by: Albuterol/Ipratropium (Albuterol/Ipratropium 3.0-0.5 Mg/3 Ml Neb Soln) 3 ml NEB QIDRT [facility] Last Admin: 06/16/21 06:32 Dose: 3 ml Documented by: Amlodipine Besylate (Amlodipine 5 Mg Tab) 5 mg PO DAILY [facility] Last Admin: 06/16/21 08:56 Dose: 5 mg Documented by: Atorvastatin Calcium (Atorvastatin 20 Mg Tab) 60 mg PO DAILY [facility] Last Admin: 06/16/21 08:55 Dose: 60 mg Documented by: Azithromycin (Azithromycin 250 Mg Tab) 500 mg PO BEDTIME [facility] Last Admin: 06/15/21 20:42 Dose: 500 mg Documented by: Azithromycin (Azithromycin 250 Mg Tab) 500 mg PO ONETIME ONE Stop: 06/12/21 21:16 Last Admin: 06/12/21 21:30 Dose: 500 mg Documented by: Bisacodyl (Bisacodyl 5 Mg Tab) 5 mg PO DAILY PRN PRN Reason: Constipation Calcium Carbonate/Glycine (Calcium Carbonate 500 Mg Tab.Chew) 500 mg PO Q4H PRN PRN Reason: Heartburn Carvedilol (Carvedilol 12.5 Mg Tab) 6.25 mg PO ONETIME ONE Stop: 06/12/21 19:09 Last Admin: 06/12/21 19:12 Dose: 6.25 mg Documented by: Carvedilol (Carvedil[facility] 3.125 Mg Tab) [facility] Last Admin: 06/16/21 07:05 Dose: 6.25 mg Documented by: Carvedilol (Carvedilol 3.125 Mg Tab) 6.25 mg PO ONETIME ONE Stop: 06/12/21 21:16 Last Admin: 06/12/21 21:30 Dose: 6.25 mg Documented by: Docusate Sodium (Docusate Sodium 100 Mg Cap) 100 mg PO BID PRN PRN Reason: Constipation Doxycycline Hyclate (Doxycycline 100 Mg Cap) 100 mg PO BID [facility] Last Admin: 06/16/21 08:59 Dose: 100 mg Documented by: Enoxaparin Sodium (Enoxaparin 30 Mg/0.3 Ml Syringe) 30 mg SUBCUT BEDTIME [facility] Last Admin: 06/15/21 20:42 Dose: 30 mg Documented by: Escitalopram Oxalate (Escitalopram 10 Mg Tab) 10 mg PO DAILY [facility] Last Admin: 06/16/21 08:54 Dose: 10 mg Documented by: Furosemide (Furosemide 40 Mg Tab) 60 mg PO DAILY [facility] Last Admin: 06/12/21 22:09 Dose: 60 mg Documented by: Furosemide 20 mg/ Furosemide (40 mg) 60 mg PO DAILY [facility] Last Admin: 06/16/21 08:53 Dose: 60 mg Documented by: Hydrochlorothiazide (Hydrochlorothiazide 12.5 Mg Cap) 12.5 mg PO DAILY [facility] Last Admin: 06/16/21 08:52 Dose: 12.5 mg Documented by: Sodium Chloride (Normal Saline) 1,000 mls @ 150 mls/hr IV ASDIRECTED [facility] Last Admin: 06/12/21 21:15 Dose: 150 mls/hr Documented by: Sodium Chloride (Normal Saline) 1,000 mls @ 100 mls/hr IV ASDIRECTED [facility] Last Admin: 06/13/21 17:10 Dose: 100 mls/hr Documented by: Doxycycline Hyclate 100 mg/ (Sodium Chloride) 100 mls @ 100 mls/hr IV Q12H [facility] Last Admin: 06/12/21 21:14 Dose: 100 mls/hr Documented by: Azithromycin 500 mg/ Sodium (Chloride) 250 mls @ 250 mls/hr IV Q24H [facility] Last Admin: 06/13/21 16:33 Dose: Not Given Documented by: Potassium Chloride 40 meq/ (Premix) 100 mls @ 25 mls/hr IV ONETIME ONE Stop: 06/13/21 10:50 Doxycycline Hyclate 100 mg/ (Sodium Chloride) 100 mls @ 100 mls/hr IV Q12H [facility] Last Admin: 06/14/21 21:38 Dose: 100 mls/hr Documented by: Potassium Chloride 20 meq/Lidocaine HCl 2 ml/ Sodium Chloride 112 mls @ 56 mls/hr IV Q2H [facility] Stop: 06/13/21 11:59 Last Admin: 06/13/21 13:10 Dose: 56 mls/hr Documented by: Potassium Chloride 20 meq/Lidocaine HCl 2 ml/ Sodium Chloride 112 mls @ 56 mls/hr IV ONETIME ONE Stop: 06/14/21 13:29 Last Admin: 06/14/21 11:58 Dose: 56 mls/hr Documented by: Calcium Gluconate 1 gm/ Sodium (Chloride) 110 mls @ 110 mls/hr IV ONETIME ONE Stop: 06/14/21 11:29 Last Admin: 06/14/21 10:54 Dose: 110 mls/hr Documented by: Potassium Chloride 20 meq/Lidocaine HCl 2 ml/ Sodium Chloride 112 mls @ 56 mls/hr IV ONETIME ONE Stop: 06/15/21 12:59 Last Admin: 06/15/21 11:15 Dose: 56 mls/hr Documented by: Influenza Virus Vaccine (Flu Vacc [id number](65yr Up)/Pf 240 Mcg/0.7 Ml Syringe) 240 mcg IM .ONCE ONE Stop: 06/12/21 23:46 Last Admin: 06/13/21 01:24 Dose: Not Given Documented by: Influenza Virus Vaccine (Flu Vacc [id number](65yr Up)/Pf 240 Mcg/0.7 Ml Syringe) 240 mcg IM .ONCE ONE Stop: 06/13/21 09:01 Last Admin: 06/13/21 17:11 Dose: 240 mcg Documented by: Losartan Potassium (Losartan 50 Mg Tab) 100 mg PO DAILY [facility] Last Admin: 06/16/21 08:50 Dose: 100 mg Documented by: Methylprednisolone Sodium Succinate (Methylprednisolone Sodium Succinate 125 Mg/2 Ml Sdv) Confirm Administered Dose 125 mg .ROUTE .STK-MED ONE Stop: 06/12/21 18:10 Last Admin: 06/12/21 18:16 Dose: Not Given Documented by: Methylprednisolone Sodium Succinate (Methylprednisolone Sodium Succinate 125 Mg/2 Ml Sdv) 125 mg IVPUSH ONETIME ONE Stop: 06/12/21 18:12 Last Admin: 06/12/21 18:15 Dose: 125 mg Documented by: Methylprednisolone Sodium Succinate (Methylprednisolone Sodium Succinate 40 Mg/1 Ml Sdv) 40 mg IVPUSH Q6H [facility] Last Admin: 06/16/21 07:19 Dose: 40 mg Documented by: Montelukast Sodium (Montelukast 10 Mg Tab) 10 mg PO DAILY [facility] Last Admin: 06/16/21 08:58 Dose: 10 mg Documented by: Morphine Sulfate (Morphine 2 Mg/Ml Syringe) 2 mg IVPUSH Q2H PRN PRN Reason: Pain (severe 7-10) Nitroglycerin (Nitroglycerin 0.4 Mg Tab.Sl) 0.4 mg SL ASDIRECTED PRN PRN Reason: Chest Pain Ondansetron HCl (Ondansetron 4 Mg Tab.Dis) 4 mg PO Q6H PRN PRN Reason: Nausea able to take PO Oxycodone HCl (Oxycodone 5 Mg Tab) 5 mg PO Q4H PRN PRN Reason: Pain (moderate 4-6) Pantoprazole Sodium (Pantoprazole 40 Mg Vial) 40 mg IV BEDTIME [facility] Last Admin: 06/13/21 20:29 Dose: 40 mg Documented by: Pantoprazole Sodium (Pantoprazole 40 Mg Tab.Cr) 40 mg PO BEDTIME [facility] Last Admin: 06/15/21 20:42 Dose: 40 mg Documented by: Potassium Chloride (Potassium Chloride 10 Meq Cap.Er) 10 meq PO DAILY [facility] Last Admin: 06/14/21 08:44 Dose: 10 meq Documented by: Potassium Chloride (Potassium Chloride 20 Meq Tab.Er) 40 meq PO ONETIME ONE Stop: 06/13/21 13:04 Potassium Chloride (Potassium Chloride 10 Meq Cap.Er) 20 meq PO DAILY [facility] Last Admin: 06/16/21 08:57 Dose: 20 meq Documented by: Potassium Chloride (Potassium Chloride 20 Meq Tab.Er) 20 meq PO ONETIME ONE Stop: 06/15/21 10:31 Last Admin: 06/15/21 11:15 Dose: 20 meq Documented by: Sodium Chloride (Sodium Chloride 0.9% 10 Ml Syringe) 10 ml FLUSH ASDIRECTED PRN PRN Reason: Keep Vein Open - Exam General: Reports: Alert, Oriented HEENT: Reports: Pupils Equal, EOMI, Mucous Membr. Moist/[place] Neck: Reports: Supple Lungs: Reports: Clear to Auscultation, Normal Respiratory Effort Cardiovascular: Reports: Regular Rate, Regular Rhythm GI/Abdominal Exam: Normal Bowel Sounds, Soft, Non-Tender, No Organomegaly, No Distention, No Abnormal Bruit, No Mass, Pelvis Stable Back Exam: Reports: Normal Inspection Extremities: Normal Inspection, Normal Range of Motion, Non-Tender, Normal Capillary Refill, Pedal Edema Skin: Reports: Warm, Dry, Intact Neurological: Reports: No New Focal Deficit Psy/Mental Status: Reports: Alert, Normal Affect, Normal Mood
== END 2021-06-16 10:27 | disposition home health service (06) | DRG 191 ==
LOC: JP.ED 17:55 → JP.MS 20:07 → JP.OB 06-14 11:24 → JP.MS 06-14 11:29
PROVIDERS: ADMIT Internal Medicine; ATTEND Internal Medicine
DX: J45.909 Unspecified asthma, uncomplicated (principal); R09.2 Respiratory arrest; J43.9 Emphysema, unspecified; I13.0 Hypertensive heart and chronic kidney disease with heart failure and stage 1 through stage 4 chronic kidney disease, or unspecified chronic kidney disease; I70.1 Atherosclerosis of renal artery; I50.9 Heart failure, unspecified; E87.6 Hypokalemia; Z66 Do not resuscitate; H91.90 Unspecified hearing loss, unspecified ear; I12.9 Hypertensive chronic kidney disease with stage 1 through stage 4 chronic kidney disease, or unspecified chronic kidney disease; I25.10 Atherosclerotic heart disease of native coronary artery without angina pectoris; Z20.822 Contact with and (suspected) exposure to COVID-19; F32.9 Major depressive disorder, single episode, unspecified; E78.00 Pure hypercholesterolemia, unspecified; N18.9 Chronic kidney disease, unspecified; F41.9 Anxiety disorder, unspecified; F32.A Depression, unspecified; R32 Unspecified urinary incontinence; M19.90 Unspecified osteoarthritis, unspecified site; Z77.120 Contact with and (suspected) exposure to mold (toxic); Z91.09 Other allergy status, other than to drugs and biological substances; Z86.79 Personal history of other diseases of the circulatory system; Z88.2 Allergy status to sulfonamides; Z79.82 Long term (current) use of aspirin; Z79.899 Other long term (current) drug therapy; I25.2 Old myocardial infarction; Z98.890 Other specified postprocedural states; Z95.5 Presence of coronary angioplasty implant and graft; Z23 Encounter for immunization; Z95.1 Presence of aortocoronary bypass graft; Z79.84 Long term (current) use of oral hypoglycemic drugs
CPT/HCPCS: 36415; 36600; 70450; 71045; 71045-26; 80048; 80053; 81001; 82803; 83880; 84132; 84484; 85025; 85027; 85379; 87040; 90662; 93005; 94640; 94762; 96374; 99285-25; A9270-GY; C9113; G0008; J0610; J1650; J2001; J2920; J2930; J3480; J3490; J7030; J7620-GY; U0002

== ENCOUNTER 2021-07-05 17:42 | Emergency (ER) | payer MEDICARE, BC ==
[2021-07-05 17:56] VITALS: BP 174/61; PULSE 75
[2021-07-05] MEDS ORDERED: Sodium Chloride 0.9% 10 ML Syringe FLUSH PRN (18:25)
[2021-07-05 19:08] LABS: CORONAVIRUS COVID-19 NAA NEGATIVE (NEGATIVE)
[2021-07-05] MEDS ORDERED: methylPREDNISolone Sodium Succinate 125 MG/2 ML SDV IVPUSH ONE (19:44)
--- NOTE | 2021-07-05 20:19 | EDM.PDOC ---
ED HPI GENERAL MEDICAL PROBLEM - General Chief Complaint: Respiratory Problem Stated Complaint: COPD ISSUES Time Seen by Provider: 07/05/21 18:21 Source of Information: Reports: Patient, Family (Daughter) History Limitations: Reports: No Limitations - History of Present Illness INITIAL COMMENTS - FREE TEXT/NARRATIVE: Ashley is an 85-year-old female presenting to the ED for evaluation of increasing shortness of breath, cough producing minimal sputum, and increased leg swelling. The patient was hospitalized in June for a COPD exacerbation and CHF. She had just completed her prednisone taper last week and then started to develop increasing shortness of breath. She has been doing nebulized treatments every 4 hours except when she is sleeping. She is on Lasix 60 mg da isabell to try to get the excess fluid off. She has been keeping her legs elevated but despite this they remain swollen. She has been vaccinated for Covid with the Moderna vaccine in October 2020. She has not had her Covid vaccine booster yet, but she has received her influenza vaccine. - Related Data Allergies Allergy/AdvReac Type Severity Reaction Status Date / Time Sulfa (Sulfonamide Allergy Mouth Sores Verified 07/05/21 18:16 Antibiotics) Home Meds: Home Meds Albuterol Sulfate [Proair Hfa] 2 puff IH Q6H PRN 08/21/14 [History] Albuterol/Ipratropium [DuoNeb 3.0-0.5 MG/3 ML] 1 ampule IH Q4H PRN 08/21/14 [History] Aspirin [Halfprin] 81 mg PO DAILY 08/21/14 [History] Calcium Carbonate [Tums] 500 mg PO ASDIRECTED PRN 08/21/14 [History] Fluticasone Propion/Salmeterol [Advair 250-50 Diskus] 1 puff IH BID 08/21/14 [History] Furosemide 60 mg PO DAILY 08/21/14 [History] Losartan [Cozaar] 100 mg PO DAILY 08/21/14 [History] Montelukast Sodium [Singulair] 10 mg PO DAILY 08/21/14 [History] Nitroglycerin 0.4 mg SL ASDIRECTED PRN 08/21/14 [History] atorvaSTATin [Lipitor] 60 mg PO DAILY 08/21/14 [History] hydroCHLOROthiazide [Hydrochlorothiazide] 12.5 mg PO DAILY 06/22/17 [History] amLODIPine Besylate [Amlodipine Besylate] 5 mg PO DAILY 01/16/18 [History] Escitalopram [Lexapro] 10 mg PO DAILY 04/21/20 [History] Umeclidinium Dalzell [Incruse Ellipta*] 1 inhalation PO DAILY 03/28/21 [History] carvediloL [Carvedilol] 6.25 mg PO BIDAC 03/28/21 [History] Potassium Chloride [Klor-Con M20] 20 meq PO DAILY 30 Days #30 tab.er 06/16/21 [Rx] Past Medical History HEENT History: Reports: Hard of Hearing, Impaired Vision Cardiovascular History: Reports: Bypass, CAD, High Cholesterol, Hypertension, ID, SOB on Exertion Respiratory History: Reports: Asthma, COPD, Pneumonia, Recurrent, SOB Other Respiratory History: emphasema Gastrointestinal History: Reports: None Genitourinary History: Reports: Chronic Renal Insuffiency, Urinary Incontinence Other Genitourinary History: renal artery stenosis [employer] History: Reports: Musculoskeletal History: Reports: Arthritis, Fracture Other Musculoskeletal History: osteopenia Psychiatric History: Reports: Anxiety, Depression - Infectious Disease History Infectious Disease History: Reports: Chicken Pox, Influenza, Measles, Pertussis (Whooping Cough) - Past Surgical History Head Surgeries/Procedures: Reports: None HEENT Surgical History: Reports: Tonsillectomy Cardiovascular Surgical History: Reports: Carotid Stents, Coronary Artery Bypass , Coronary Artery Stent Other Female Surgeries/Procedures: kidney stents Social & Family History - Family History Family Medical History: No Pertinent Family History - Tobacco Use Tobacco Use Status *Q: Never Tobacco User - Caffeine Use Caffeine Use: Reports: Coffee - Recreational Drug Use Recreational Drug Use: No - Living Situation & Occupation Living situation: Reports: , with Family (lives with Leno and Daughter in [place], [place].) ED ROS GENERAL - Review of Systems Review Of Systems: See Below Constitutional: Reports: No Symptoms HEENT: Reports: No Symptoms Respiratory: Reports: Shortness of Breath, Cough, Sputum Cardiovascular: Reports: Edema Endocrine: Reports: No Symptoms GI/Abdominal: Reports: No Symptoms : Reports: No Symptoms Musculoskeletal: Reports: No Symptoms Skin: Reports: No Symptoms Neurological: Reports: No Symptoms Psychiatric: Reports: No Symptoms Hematologic/Lymphatic: Reports: No Symptoms Immunologic: Reports: No Symptoms ED EXAM, GENERAL - Physical Exam Exam: See Below Exam Limited By: No Limitations General Appearance: Alert, No Apparent Distress Eye Exam: Bilateral Eye: EOMI, PERRL Nose: Normal Inspection, Normal Mucosa Throat/Mouth: Normal Inspection, Normal Oropharynx, Normal Voice, No Airway Compromise Head: Atraumatic, Normocephalic Neck: Normal Inspection, Supple Respiratory/Chest: No Respiratory Distress, No Accessory Muscle Use, Decreased Breath Sounds (Bibasilar decrease in breath sounds). No: Crackles, Rales, Rhon chi, Wheezing Cardiovascular: Normal Peripheral Pulses, Regular Rate, Rhythm, No Murmur Peripheral Pulses: 2+: Radial (L), Radial (R), Posterior Tibial (L), Posterior Tibial (R) GI/Abdominal: Normal Bowel Sounds, Soft, Non-Tender Extremities: Pedal Edema (2+ edema to mid calf bilaterally) Neurological: Alert, Oriented, Normal Cognition, No Motor/Sensory Deficits Psychiatric: Normal Affect, Normal Mood Skin Exam: Warm, Dry Course - Vital Signs Last Recorded V/S: Last Vital Signs Temp 36.7 C 07/05/21 18:14 Pulse 75 07/05/21 18:14 Resp 16 07/05/21 18:14 BP 174/61 H 07/05/21 18:14 Pulse Ox 98 07/05/21 18:14 - Orders/Labs/Meds Orders: Active Orders 24 hr Category Date Time Status Chest 1V Frontal [CR] Stat Exams 07/05/21 18:25 Taken Sodium Chloride 0.9% [Saline Flush] Med 07/05/21 18:25 Active 10 ml FLUSH ASDIRECTED PRN Isolation [COMM] Stat Oth 07/05/21 18:26 Ordered Saline Lock Insert [OM.PC] Routine Oth 07/05/21 18:25 Ordered Medication Orders Sodium Chloride (Sodium Chloride 0.9% 10 Ml Syringe) 10 ml FLUSH ASDIRECTED PRN PRN Reason: Keep Vein Open Last Admin: 07/05/21 18:45 Dose: 10 ml Documented by: JUANITO Labs: Laboratory Tests 07/05/21 07/05/21 07/05/21 Range/Units 18:25 18:40 18:40 WBC 7.7 (4.5-11.0) K/uL RBC 3.34 (3.30-5.50) M/uL Hgb 10.8 L (12.0-15.0) g/dL Hct 33.7 L (36.0-48.0) % MCV 101 H (80-98) fL MCH 32 H (27-31) pg MCHC 32 (32-36) % Plt Count 195 (150-400) K/uL Neut % (Auto) 57.5 (36-66) % Lymph % (Auto) 23.8 L (24-44) % Hamblen % (Auto) 10.1 H (2-6) % Eos % (Auto) 8.2 H (2-4) % Baso % (Auto) 0.4 (0-1) % Sodium 135 L (140-148) mmol/L Potassium 3.4 L (3.6-5.2) mmol/L Chloride 98 L (100-108) mmol/L Carbon Dioxide 28 (21-32) mmol/L Anion Gap 12.4 (5.0-14.0) mmol/L BUN 18 (7-18) mg/dL Creatinine 0.8 (0.6-1.0) mg/dL Est Cr Clr Drug Dosing 35.59 mL/min Estimated GFR (MDRD) > 60 (>60) Glucose 93 (74-106) mg/dL Calcium 8.4 L (8.5-10.1) mg/dL Total Bilirubin 0.4 (0.2-1.0) mg/dL AST 16 (15-37) U/L ALT 25 (12-78) U/L Alkaline Phosphatase 59 (46-116) U/L Troponin I < 0.017 (0.000-0.056) ng/mL C-Reactive Protein 0.31 H (0.0-0.3) mg/dL NT-Pro-B Natriuret Pep 1079 H (5-450) pg/mL Total Protein 5.9 L (6.4-8.2) g/dL Albumin 3.1 L (3.4-5.0) g/dL Globulin 2.8 (2.3-3.5) g/dL Albumin/Globulin Ratio 1.1 L (1.2-2.2) Influenza Type A RNA Negative (NEGATIVE) RSV RNA (INAAT) Negative (NEGATIVE) Influenza Type B RNA Negative (NEGATIVE) SARS-CoV-2 RNA (MIKAELA) Negative (NEGATIVE) Meds: Medications Generic Name Dose Route Start Last Admin Trade Name Chris PRN Reason Stop Dose Admin Sodium Chloride 10 ml 07/05/21 18:25 07/05/21 18:45 Sodium Chloride 0.9% 10 Ml Syringe FLUSH 10 ml ASDIRECTED PRN Administration Keep Vein Open Discontinued Medications Generic Name Dose Route Start Last Admin Trade Name Chris PRN Reason Stop Dose Admin Methylprednisolone Sodium Succinate 125 mg 07/05/21 19:44 07/05/21 20:02 Methylprednisolone Sodium Succinate 125 Mg/2 Ml Sdv IVPUSH 07/05/21 19:45 125 mg ONETIME ONE Administration - Radiology Interpretation Free Text/Narrative:: I reviewed the 1 view chest x-ray and compared it to her previous. There is mild cephalization of vasculature, mild pulmonary edema and slight left pleural effusion with blunting of the costophrenic angle without evidence of any acute infiltrates or adenopathy. There is mild cardiomegaly. The cardiomegaly remains unchanged from previous chest x-ray. - Re-Assessments/Exams Free Text/Narrative Re-Assessment/Exam: 07/05/21 20:27 I reviewed the patient's labs showing a normal CBC with a leukocyte count of 7.7, hemoglobin of 10.8 with a hematocrit of 33.7 and platelet count of 195,000. Her comprehensive metabolic panel shows a significant sodium 135, potassium 3.4, chloride of 98, bicarbonate of 28, BUN of 18 with a creatinine of 0.8 and glucose of 93. Calcium is slightly low at 8.4, however, the albumin is also low given a corrected calcium of 8.9. C-reactive protein is very mildly elevated 0.31 and BNP is elevated at 1079. This seems to be where she has been running for the last year but it is elevated. Due to the increase in the BMP I am recommending we increase the Lasix to 80 mg daily for the next 3 to 4 days to try to get the extra fluid off. She is also on hydrochlorothiazide. It may be that she would require Zaroxolyn if she does not diurese with the elevation in the furosemide. As for the COPD exacerbation which she is likely having causing increased sputum and shortness of breath, she should continue with the nebulized treatment at home as before and we will put her on a 12-day prednisone taper. I would like her to follow-up with her primary care provider next week and the patient already has an appointment to see Nabeel Latif on 07/16/2021. If she gets any worse she should return to the ED for reevaluation. Departure - Departure Time of Disposition: 20:04 Disposition: Home, Self-Care 01 Clinical Impression: Acute exacerbation of chronic obstructive pulmonary disease (COPD), CHF, Congestive heart failure, Peripheral edema - Discharge Information Instructions: Chronic Obstructive Pulmonary Disease, [id number], Heart Failure, Self Care Referrals: Edgard Ballesteros MD [Primary Care Provider] - Care Plan Goals: I would recommend increasing the furosemide (Lasix) to 80 mg a day for the next 3 to 4 days and then resume the 60 mg a day thereafter. This should help get the excess fluid off and should reduce the swelling in your legs. You do have a slight amount of fluid around the left lung that is worsened when compared to your previous x-ray of the chest. This is likely also due to your congestive heart failure. The work-up today has not shown any evidence of an infection and your heart enzymes were otherwise normal. You do not have Covid, RSV, or influenza. Continue to use the nebulizers as before but I am going to put you on a 10-day prednisone taper which you may start tomorrow. Follow up with Dr. Ballesteros in a week or sooner if not improving. Return to the ED if you have any significant worsening of your shortness of breath. Sepsis Event Note (ED) - Evaluation Sepsis Screening Result: No Definite Risk - Focused Exam Vital Signs: Vital Signs Temp Pulse Resp BP Pulse Ox 07/05/21 18:14 36.7 C 75 16 174/61 H 98 07/05/21 17:55 36.7 C 75 16 174/61 H 98 - My Orders Last 24 Hours: My Active Orders 07/05/21 18:25 Chest 1V Frontal [CR] Stat Sodium Chloride 0.9% [Saline Flush] 10 ml FLUSH ASDIRECTED PRN Saline Lock Insert [OM.PC] Routine 07/05/21 18:26 Isolation [COMM] Stat - Assessment/Plan Last 24 Hours: My Active Orders 07/05/21 18:25 Chest 1V Frontal [CR] Stat Sodium Chloride 0.9% [Saline Flush] 10 ml FLUSH ASDIRECTED PRN Saline Lock Insert [OM.PC] Routine 07/05/21 18:26 Isolation [COMM] Stat
--- NOTE | 2021-07-06 09:01 | CR ---
CHEST: Portable 07/05/2021 at 6:42 PM CLINICAL HISTORY:Dyspnea, cough COMPARISON:06/12/2021 FINDINGS: There is patchy density in the right infrahilar region and in the lingula. Heart size is mildly enlarged. There has been previous sternotomy. There are atherosclerotic changes in the aorta. Impression: Patchy right infrahilar and lingular airspace disease. This may represent pneumonic infiltrate or less likely, patchy atelectasis
== END 2021-07-05 20:35 | disposition home or self-care (01) ==
LOC: JP.ED 17:42
DX: J44.1 Chronic obstructive pulmonary disease with (acute) exacerbation (principal); I13.0 Hypertensive heart and chronic kidney disease with heart failure and stage 1 through stage 4 chronic kidney disease, or unspecified chronic kidney disease; N18.9 Chronic kidney disease, unspecified; I50.9 Heart failure, unspecified; R60.0 Localized edema; E78.00 Pure hypercholesterolemia, unspecified; I25.10 Atherosclerotic heart disease of native coronary artery without angina pectoris; I25.2 Old myocardial infarction; J44.9 Chronic obstructive pulmonary disease, unspecified; Z88.2 Allergy status to sulfonamides; Z79.899 Other long term (current) drug therapy; Z79.82 Long term (current) use of aspirin; Z20.822 Contact with and (suspected) exposure to COVID-19
CPT/HCPCS: 0241U; 36415; 71045; 80053; 83880; 84484; 85025; 86140; 96374; 99285; J2930

== ENCOUNTER 2022-05-09 06:06 | Day surgery (SDC) | payer MEDICARE, BC ==
[2022-05-09] MEDS ORDERED: Sodium Chloride 0.9% 10 ML Syringe FLUSH ONE (07:00)
[2022-05-09 07:52] VITALS: BP 166/71; PULSE 82
== END 2022-05-09 08:05 | disposition home or self-care (01) ==
LOC: JP.SDS 06:06
PROVIDERS: ATTEND Ophthalmology
DX: H25.12 Age-related nuclear cataract, left eye (principal); I13.0 Hypertensive heart and chronic kidney disease with heart failure and stage 1 through stage 4 chronic kidney disease, or unspecified chronic kidney disease; I50.9 Heart failure, unspecified; I25.10 Atherosclerotic heart disease of native coronary artery without angina pectoris; J44.9 Chronic obstructive pulmonary disease, unspecified; N18.9 Chronic kidney disease, unspecified
CPT/HCPCS: J3490; V2632